=== PATIENT | female | born 1960 | race African-American/Black ===

== ENCOUNTER → 2016-08-03 | Outpatient (CLI) | payer MEDICARE ==
[~2016-08-03] MED LIST: AMIT1TAB79 PO; ATOR1TAB18 PO; CYCL1TAB29 PO; GABA800T PO; HYDR12.56 PO; IBUP800T23 PO; LEVA500T PO; LISI10TA3 PO; METF500T PO; METO50TA PO; NITR1SUB3 SL; OXYC1TAB36 PO; VENTAER INH; ZANT150T2 PO
--- NOTE | 2016-08-03 10:41 | RADRPT ---
EXAM DATE/TIME: 08/03/2016 09:39 [facility] COMPARISON: KNEE LEFT COMPLETE (4VWS), March 22, 2015, 21:19. INDICATIONS : Left knee pain. MEDICAL HISTORY : Hypertension. Chronic obstructive pulmonary disease. Myocardial infarction. Smoker. SURGICAL HISTORY : Carotid stent. Arthroscopy. ENCOUNTER: Initial ACUITY: 1 month PAIN SCORE: 8/10 LOCATION: Left lateral knee. FINDINGS: Four view examination of the left knee demonstrates no evidence of fracture or dislocation. Bony min eralization is normal. The articular surfaces are intact. The suprapatellar soft tissues have a nor mal configuration. There is no evidence of joint effusion. 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 This is unchanged compared to 2015. No new findings are seen. CONCLUSION: No acute fracture or joint dislocation. Qasim Sheffield MD on August 03, 2016 at 10:39 Board Certified Radiologist. This report was verified electronically.
== END ==
LOC: HRAD 09:24
PROVIDERS: ATTEND Internal Medicine
DX: S83.241A Other tear of medial meniscus, current injury, right knee, initial encounter (principal); X58.XXXA Exposure to other specified factors, initial encounter
CPT/HCPCS: 73564

== ENCOUNTER → 2016-11-01 | Outpatient (CLI) | payer MEDICARE ==
--- NOTE | 2016-11-02 14:21 | EKG ---
Date Performed: 11/01/2016 Time Performed: 12:43:14 PTAGE: 56 years EKG: Sinus bradycardia. Septal T wave changes are nonspecific Compared to prior tracing no signi ficant change Borderline ECG PREVIOUS TRACING : 04/10/2016 12.52 DOCTOR: Jerrod Guerrero Interpretating Date/Time 11/02/2016 14:19:46
== END ==
LOC: HCAV 12:30
PROVIDERS: ATTEND Ophthalmology
DX: Z01.810 Encounter for preprocedural cardiovascular examination (principal); R94.31 Abnormal electrocardiogram [ECG] [EKG]
CPT/HCPCS: 36415; 85025; 93005

== ENCOUNTER → 2016-11-01 | Outpatient (CLI) | payer MEDICARE ==
[2016-11-01 12:24] LABS: AUTOMATED NEUTROPHIL # 4.6 TH/MM3 (1.8-7.7); BASOPHIL # 0.1 TH/MM3 (0-0.2); BASOPHIL % 1.5 % (0.0-2.0); EOSINOPHIL # 0.2 TH/MM3 (0-0.4); EOSINOPHIL % 2.3 % (0.0-4.0); HEMATOCRIT 33.9 % (35.0-46.0); HEMO FLAGS DIFF FINAL; LYMPH % 29.1 % (9.0-44.0); LYMPHOCYTE # 2.2 TH/MM3 (1.0-4.8); MEAN CELL VOLUME 77.7 FL (80.0-100.0); MEAN CORPUSCULAR HGB CONC 30.9 % (32.0-36.0); MONO % 6.4 % (0.0-8.0); NEUT % 60.7 % (16.0-70.0); PLATELET COUNT 334 TH/MM3 (150-450); RED BLOOD COUNT 4.37 MIL/MM3 (4.00-5.30); RED CELL DISTRIBUTION WIDTH 15.9 % (11.6-17.2); WHITE BLOOD COUNT 7.5 TH/MM3 (4.0-11.0)
== END ==
LOC: CLAB 12:03
PROVIDERS: ATTEND Ophthalmology
DX: Z01.812 Encounter for preprocedural laboratory examination (principal); Z01.818 Encounter for other preprocedural examination; Z01.810 Encounter for preprocedural cardiovascular examination; R94.31 Abnormal electrocardiogram [ECG] [EKG]
CPT/HCPCS: 36415; 85025

== ENCOUNTER → 2016-12-26 | Outpatient (CLI) | payer MEDICARE ==
[2016-12-26 13:07] LABS: AUTOMATED NEUTROPHIL # 4.5 TH/MM3 (1.8-7.7); BASOPHIL # 0.1 TH/MM3 (0-0.2); EOSINOPHIL # 0.4 TH/MM3 (0-0.4); EOSINOPHIL % 4.5 % (0.0-4.0); HEMATOCRIT 35.6 % (35.0-46.0); HEMO FLAGS DIFF FINAL; LYMPH % 34.4 % (9.0-44.0); LYMPHOCYTE # 2.9 TH/MM3 (1.0-4.8); MEAN CELL VOLUME 77.7 FL (80.0-100.0); MEAN CORPUSCULAR HEMOGLOBIN 24.8 PG (27.0-34.0); MEAN CORPUSCULAR HGB CONC 31.9 % (32.0-36.0); MONO % 6.9 % (0.0-8.0); NEUT % 53.2 % (16.0-70.0); PLATELET COUNT 293 TH/MM3 (150-450); RED BLOOD COUNT 4.58 MIL/MM3 (4.00-5.30); RED CELL DISTRIBUTION WIDTH 15.4 % (11.6-17.2); WHITE BLOOD COUNT 8.5 TH/MM3 (4.0-11.0)
== END ==
LOC: CLAB 12:41
PROVIDERS: ATTEND Ophthalmology
DX: Z01.818 Encounter for other preprocedural examination (principal)
CPT/HCPCS: 36415; 85025

== ENCOUNTER 2017-01-21 09:27 | Inpatient (IN) | payer MEDICARE, MEDICAID ==
[~2017-01-21] VITALS: Ht 175.3 cm; Wt 84.9 kg
[~2017-01-21 09:27] MED LIST changes: -AMIT1TAB79 PO; -LEVA500T PO; -OXYC1TAB36 PO
--- NOTE | 2017-01-24 08:39 | MH ---
cc: Drake ROSE DATE OF ADMISSION 01/25/2017 ADMISSION DIAGNOSIS Osteoarthritic degeneration left knee now being admitted for left total knee arthroplasty. ADMISSION HISTORY AND PHYSICAL This 56-year-old female, known diabetic, is being admitted today for left total knee arthroplasty due to severe painful osteoarthritic degeneration left knee. OTHER PAST HISTORY The patient has a history of: 1. Breast cancer 2. Depression 3. Diabetes 4. Vertigo 5. Hypertension 6. Back pain 7. Lung problems 8. Neck pain 9. Anemia CURRENT MEDICATIONS Include: 1. Metformin 2. Isosorbide 3. Amitriptyline 4. Metoprolol 5. Hydrochlorothiazide 6. Atorvastatin 7. Lisinopril 8. Gabapentin 9. Hydrocodone 10. Ibuprofen 11. Ranitidine 12. Ibuprofen stopped before surgery 13. Cyclobenzaprine 14. Allopurinol 15. Albuterol 16. Ipratropium bromide PAST SURGICAL HISTORY Include: 1. Two heart stents 2. Three arthroscopies on the knee 3. Breast cancer surgery REVIEW OF SYSTEMS Noncontributory FAMILY HISTORY Noncontributory SOCIAL HISTORY She does not smoke or drink. ALLERGIES SHE HAS ALLERGY TO PENICILLIN. She is no longer taking any blood thinners. PHYSICAL EXAMINATION We find a 56-year female well-developed, well-nourished oriented x3 complaining of pain in her left knee. VITAL SIGNS: Blood pressure 122/80, pulse 74 and regular, respirations 18, temperature 98.2, pulse oximetry 98% on room air. HEENT: Eyes PERRL, EOMI. Ears, nose, mouth clear. NECK: Supple. LUNGS: Clear. HEART: Regular rate. ABDOMEN: Soft. Positive bowel sounds, nontender. EXTREMITIES: Reveals her left knee be tender with crepitance throughout range of motion, neurovascularly intact to her toes. IMPRESSION AT THIS TIME Severe painful osteoarthritic degeneration left knee. PLAN Admission for left total knee arthroplasty today. Mary. MD LUDWIN Piper/YENNIFER /12:27 PM /8:34 AM
[2017-01-24] MEDS ORDERED: AMIT25TA9 PO (09:45)
[2017-01-24] MEDS ORDERED: ASPI81TA19 PO (09:46)
[2017-01-25] MEDS ORDERED: CLINDAMYCIN 900 MG/NS 100 ML IV SCH ×2 (06:00)
[2017-01-25] MEDS ORDERED: SODIUM CHLORIDE 0.9% INJ 100 ML ONE (06:07)
[2017-01-25] MEDS ORDERED: TRANEXAMIC ACID INJ 850 MG in SODIUM CHLORIDE 0.9% INJ 100 ML IV SCH ×4 (06:15)
[2017-01-25] MEDS ORDERED: CHLORHEXIDINE GLUCONATE 2 % 1 PACK (2 CLOTHS) TOPICAL PRN (06:15)
[2017-01-25] MEDS ORDERED: METOPROLOL TARTRATE 25 MG TAB PO PRN (06:15)
[2017-01-25] MEDS ORDERED: LACTATED RINGER'S 1000 ML IV PRN (06:15)
[2017-01-25] MEDS ORDERED: EXPAREL PERI-ARTICULAR INJECTION (TOTAL VOL. 120 ML) P-ARTICULR SCH ×2 (06:15)
[2017-01-25] MEDS ORDERED: CHLORHEXIDINE GLUCONATE 4% SOLN 120 ML BTL TOPICAL SCH (06:15)
[2017-01-25] MEDS ORDERED: POVIDONE IODINE 5% (ANTISEPSIS KIT) 4 APPLICATIONS EACH NARE PRN (06:15)
[2017-01-25] MEDS ORDERED: SODIUM CHLORID 0.9% 500 ML IV PRN (06:15)
[2017-01-25] MEDS ORDERED: INSULIN HUMAN REGULAR 1,000 UNITS/10 ML VIAL SQ PRN (06:15)
[2017-01-25 06:18] VITALS: BP 121/75; PULSE 70; RESP 20; TEMP 98.9; O2SAT 97
[2017-01-25] MEDS ORDERED: VANCOMYCIN HCL 1000 MG VIAL ONE (07:10)
[2017-01-25] MEDS ORDERED: ACETAMINOPHEN 1000 MG/100 ML VIAL IV ONE (07:28)
[2017-01-25] MEDS ORDERED: FAMOTIDINE 20 MG/2 ML VIAL ONE (07:29)
[2017-01-25] MEDS ORDERED: MIDAZOLAM HCL 2 MG/2 ML VIAL ONE (07:29)
[2017-01-25] MEDS ORDERED: HYDROmorphone HCL PF 2 MG/ML VIAL ONE (07:30)
[2017-01-25] MEDS ORDERED: GENTAMICIN SULFATE 80 MG/2 ML VIAL IRRIGATION ONE (08:28)
[2017-01-25] MEDS ORDERED: ALBUTEROL SULFATE 90 MCG/ACT HFA 8 GM INHALER INH PRN (10:00)
[2017-01-25] MEDS ORDERED: IBUPROFEN 800 MG TAB PO PRN (10:15)
[2017-01-25] MEDS ORDERED: Post-op Orders (for Pharmacy) MISC XX ONE (10:15)
[2017-01-25] MEDS ORDERED: ACETAMINOPHEN/HYDROcodone 325 MG/7.5 MG TAB PO PRN (10:15)
[2017-01-25] MEDS ORDERED: TEMAZEPAM 15 MG CAP PO PRN (10:15)
[2017-01-25] MEDS ORDERED: ACETAMINOPHEN 325 MG TAB PO PRN (10:15)
[2017-01-25] MEDS ORDERED: NITROGLYCERIN 0.4 MG SL 25 TABS/BTL SL PRN (10:15)
[2017-01-25] MEDS ORDERED: SODIUM CHLORIDE 0.9% FLUSH 5 ML FLUSH IVF PRN (10:15)
[2017-01-25] MEDS ORDERED: diphenhydrAMINE HCL 50 MG/ML VIAL IV PRN (10:15)
[2017-01-25] MEDS ORDERED: TRANEXAMIC ACID INJ 0 MG in SODIUM CHLORIDE 0.9% INJ 100 ML IV SCH (10:15)
[2017-01-25] MEDS ORDERED: NALOXONE HCL 0.4 MG/ML AMP IV PRN (10:15)
[2017-01-25] MEDS: LACTATED RINGER'S 1000 ML INJ 1,000 ML IV SCH ×2 (10:42→22:33)
[2017-01-25] MEDS: MORPHINE SULFATE 30 MG/30 ML PCA IV SCH ×2 (11:08→19:03)
[2017-01-25] MEDS ORDERED: DEXTROSE 50% IN WATER 50 ML VIAL(D50) IV PRN (11:15)
--- NOTE | 2017-01-25 11:30 | RADRPT ---
EXAM DATE/TIME: 01/25/2017 10:16 [facility] COMPARISON: No previous studies available for comparison. INDICATIONS : Post-op total left knee arthroplasty. MEDICAL HISTORY : Hypertension. Chronic obstructive pulmonary disease. Myocardial infarction. Smoker. SURGICAL HISTORY : Carotid stent. Arthroscopy. ENCOUNTER: Initial ACUITY: 1 day PAIN SCORE: Non-responsive. LOCATION: Left knee FINDINGS: AP and lateral views of the left knee were obtained and demonstrate that the patient is status post a rthroplasty. The femoral and tibial components are intact and in normal alignment. There are postoper ative changes involving the patella. There is anterior soft tissue swelling and gas. CONCLUSION: Expected postoperative changes status post arthroplasty. Sawyer Hernandez MD on January 25, 2017 at 11:27 Board Certified Radiologist. This report was verified electronically.
[2017-01-25] MEDS ORDERED: ONDANSETRON HCL 4 MG/2 ML VIAL IV PUSH ONE (12:00)
[2017-01-25] MEDS ORDERED: PHENYLEPH/NS 1000 MCG/10 ML SYR IV ONE (12:00)
[2017-01-25] MEDS ORDERED: PROPOFOL 200 MG/20 ML AMP IV ONE (12:00)
[2017-01-25] MEDS ORDERED: ePHEDrine/NS 25 MG/5 ML SYR IV ONE (12:00)
[2017-01-25] MEDS ORDERED: LACTATED RINGER'S 1000 ML INJ 1,000 ML IV ONE (12:00)
[2017-01-25] MEDS ORDERED: DO NOT ADM ANY ANTICOAGULANT DRUGS PRN (12:30)
--- NOTE | 2017-01-25 13:01 | PD.CONS ---
HPI Service [facility] Consult Requested By Orthopedic services Reason for Consult Medical management Primary Care Physician Bryan Pride DO Diagnoses: History of Present Illness Written by Ashly William PA-C acting as scribe for Dr. Patel on 01/25/17 at 12:38. This is a 57-year-old female with past medical history significant for osteoarthritis with chronic left knee pain affecting her activities of daily living and who failed attempts at outpatient therapy. She underwent a left total knee replacement performed by Dr. Schaeffer who has requested patient be seen in consultation for medical management of HTN, DM, CAD and other chronic medical conditions. Patient is seen and examined. Patient is hemodynamically stable. She is complaining of some left knee pain at this time. She is requesting to eat. She denies any nausea or vomiting. She denies any chest pain or shortness of breath. She admits to continued tobacco use of 2-3 cigs per day but states she hasn't smoked in the last two weeks. All other systems reviewed and are negative. Review of Systems Except as stated in HPI: all other systems reviewed are Neg Past Family Social History Allergies: Coded Allergies: penicillin G (Unverified Allergy, Severe, ANAPHALAXIS, 01/25/17) Past Medical History History of pneumonia 04/25 Breast cancer 2007 Hypertension Diabetes COPD Coronary artery disease status post previous [place] Anemia GERD Degenerative disc disease lumbar spine Vertigo Depression Past Surgical History Cardiac stents Knee arthroscopies Back surgery 2 secondary to spinal stenosis Left breast lumpectomy Reported Medications Metoprolol 50mg BID Hydrochlorothiazide 12.5mg daily Lisinopril 10mg daily ASA 81mg daily Atorvastatin 80mg daily Gabapentin 800mg BID Ranitidine 150mg BID Metformin 500mg BIDPC Amitriptyline Cyclobenzaprine 10mg qhs Albuterol Active Ordered Medications Current Medications Medications (Trade) Dose Ordered Sig/Taty Route Start Time Stop Time Status Last Admin Chlorhexidine Gluconate 1 applic 1 applic ONCE TOPICAL 01/25/17 06:15 01/28/17 06:14 01/25/17 06:15 Tranexamic Acid 850 mg/Sodium Chloride 108.5 ml @ 200 mls/hr ONCE IV 01/25/17 06:15 01/25/17 16:00 01/25/17 08:05 Tranexamic Acid 850 mg/Sodium Chloride 108.5 ml @ 200 mls/hr ONCE IV 01/25/17 06:15 01/25/17 16:00 01/25/17 11:07 (Exparel Pf 1.3% Inj/NS Inj) 120 ml @ 240 mls/hr ONCE P-ARTICULR 01/25/17 06:15 01/25/17 16:00 (Proair Hfa Inh) 2 puff Q4H PRN INH 01/25/17 10:00 (Elavil) 25 mg HS PO 01/25/17 21:00 (Ecotrin Ec) 81 mg DAILY PO 01/26/17 09:00 (Lipitor) 80 mg DAILY PO 01/26/17 09:00 (Flexeril) 10 mg HS PO 01/25/17 21:00 (Neurontin) 800 mg BID PO 01/25/17 21:00 (Microzide) 12.5 mg DAILY PO 01/26/17 09:00 (Motrin) 800 mg TID PRN PO 01/25/17 10:15 (Prinivil) 10 mg DAILY PO 01/26/17 09:00 (Glucophage) 500 mg BIDPC PO 01/25/17 18:00 (Lopressor) 50 mg BID PO 01/25/17 21:00 (Nitrostat Sl) 0.4 mg ONCE PRN SL 01/25/17 10:15 01/26/17 10:14 Famotidine 20 mg 20 mg BID PO 01/25/17 21:00 (Lr 1000 ml Inj) 1,000 ml @ 80 mls/hr [id number] IV 01/25/17 10:03 01/25/17 10:42 (NS Flush) 2 ml UNSCH PRN IVF 01/25/17 10:15 IV Flush 2 ml 2 ml BID IVF 01/25/17 21:00 (Cleocin Inj/NS Inj) 106 ml @ 212 mls/hr Q8H IV 01/25/17 15:00 01/26/17 07:29 ([place] 7.5-325 Mg) 1 tab Q4H PRN PO 01/25/17 10:15 ([place] 7.5-325 Mg) 2 tab Q4H PRN PO 01/25/17 10:15 (Tylenol) 650 mg Q6H PRN PO 01/25/17 10:15 (Theragran M Tab) 1 tab BID PO 01/26/17 21:00 03/27/17 20:59 (Zofran Inj) 4 mg Q6H PRN IVP 01/25/17 10:15 (Colace) 100 mg BID PO 01/26/17 21:00 (Restoril) 15 mg HS PRN PO 01/25/17 10:15 (Narcan Inj) 0.4 mg UNSCH PRN IV 01/25/17 10:15 (Benadryl Inj) 25 mg Q6H PRN IV 01/25/17 10:15 (Morphine 1 Mg/ ml COPY CHIEF) 30 mg UNSCH IV 01/25/17 10:15 01/25/17 11:08 COPY CHIEF Dosage Infused (Pha) 1 Q8HR .XX 01/25/17 14:00 (Eliquis) 2.5 mg BID PO 01/25/17 21:00 (D50w (Vial) Inj) 50 ml UNSCH PRN IV 01/25/17 11:15 Miscellaneous Information ALL NURSING DEPARTME... UNSCH PRN .XX 01/25/17 12:30 01/26/17 12:29 Family History Mother, age 74, pneumonia Father, age 76, brain tumor Social History Patient presents history of tobacco use of 2-3 cigarettes a day. States her last cigarette was 2 weeks. She reports rare alcohol consumption of once per year. Denies any illicit drug use. Physical Exam Vital Signs Vital Signs Date Time Temp Pulse Resp B/P Pulse Ox O2 Delivery O2 Flow Rate FiO2 01/25/17 11:15 73 16 120/67 100 Nasal Cannula 2 01/25/17 11:08 16 01/25/17 11:00 73 16 128/73 100 Nasal Cannula 2 01/25/17 10:45 75 16 124/65 100 Nasal Cannula 2 01/25/17 10:42 98.0 76 16 131/73 100 Nasal Cannula 2 01/25/17 10:30 74 16 129/80 100 Nasal Cannula 2 01/25/17 10:26 98.0 76 16 131/73 100 Nasal Cannula 2 01/25/17 06:18 98.9 70 20 121/75 97 Physical Exam GENERAL: This is a well-nourished, well-developed patient, in no apparent distress. Somewhat sedated in PACU. SKIN: No rashes, ecchymoses or lesions. Cool and dry. HEAD: Atraumatic. Normocephalic. No temporal or scalp tenderness. EYES: Pupils equal round and reactive. Extraocular motions intact. No scleral icterus. No injection or drainage. ENT: Nose without bleeding or purulent drainage. Throat without erythema, tonsillar hypertrophy or exudate. Uvula midline. Airway patent. NECK: Trachea midline. No lymphadenopathy. Supple, nontender, no meningeal signs. CARDIOVASCULAR: Regular rate and rhythm without murmurs, gallops, or rubs. RESPIRATORY: Clear to auscultation. Breath sounds equal bilaterally. No wheezes , rales, or rhonchi. GASTROINTESTINAL: Abdomen soft, non-tender, nondistended. No hepato-splenomegaly , or palpable masses. No guarding. MUSCULOSKELETAL: Status post left total knee replacement. Left leg in postoperative dressing that is clean, dry and intact. LLE in CPM. NEUROLOGICAL: Awake and alert. Able to move extremities. Normal speech. Laboratory Laboratory Tests Test 01/25/17 06:18 Blood Type O POSITIVE Antibody Screen NEGATIVE Imaging Last Impressions Knee X-Ray 01/25/17 1003 Signed Impressions: Service Date/Time: Wednesday, January 25, 2017 10:16 - CONCLUSION: Expected postoperative changes status post arthroplasty. Sawyer Hernandez MD Assessment and Plan Assessment and Plan 57-year-old female with past medical history significant for osteoarthritis with chronic left knee pain affecting her activities of daily living and who failed attempts at outpatient therapy. She underwent a left total knee replacement performed by Dr. Schaeffer who has requested patient be seen in consultation for medical management of HTN, DM, CAD and other chronic medical conditions. Osteoarthritis of the left knee failed attempts at outpatient therapy status post left total knee replacement Pain management with COPY CHIEF Morphine and [place] 7.5/325mg DVT prophylaxis with Eliquis 2.5 mg twice a day PT eval/tx Coronary artery disease status post previous [place] and cardiac stent implant Patient is asymptomatic and has no complaints of chest pain at this time Continue aspirin 81 mg daily Nitroglycerin when necessary chest pain Monitor Hypertension, stable Continue patient on home dose of lisinopril, hydrochlorothiazide and metoprolol Monitor BP Diabetes mellitus Continue patient on home dose of metformin 500 mg twice a day Accu-Chek Insulin sliding scale obtain hgbA1c Diabetic diet COPD, not in acute exacerbation Albuterol inhaler when necessary Monitor respiratory status Neuropathy Continue patient on home dose of gabapentin and amitriptyline Anemia, microcytic hypochromic mild Appears stable Continue to monitor - am labs ordered Ongoing tobaccoism Encourage cessation/counseling Vitamin D deficiency Less vitamin d level of the system is 11.2 12/12/12 will obtain new Vitamin D level H/O breast cancer 2006, stable GERD Pepcid 20mg BID DVT prophylaxis Eliquis 2.5 mg twice a day This note was transcribed by scribe [Ashly William]. I, Dr. Edgar Patel personally performed the history, physical exam, and medical decision making; and confirmed the accuracy of the information in the transcribed note. Authenticated by Dr. Edgar Patel on 01/25/17 at 14:32. Discussed Condition With patient Ashly William Jan 25, 2017 13:01 Edgar Patel MD Jan 25, 2017 14:32
[2017-01-25 13:30] VITALS: BP 111/72; PULSE 75; RESP 16; TEMP 96.5; O2SAT 95
[2017-01-25] MEDS: PCA - TOTAL MG MORPHINE DELIVERED PER SHIFT SCH ×2 (14:00→21:17)
[2017-01-25] MEDS: CLINDAMYCIN INJ 900 MG in SODIUM CHLORIDE 0.9% INJ 100 ML IV SCH ×2 (15:13→23:14)
[2017-01-25 16:00] VITALS: BP 123/88; PULSE 84; RESP 17; TEMP 96.1; O2SAT 99
[2017-01-25] MEDS: metFORMIN HCL 500 MG TAB PO SCH (18:32)
[2017-01-25 20:00] VITALS: BP 140/78; PULSE 86; RESP 17; TEMP 97.8; O2SAT 97
[2017-01-25] MEDS: SODIUM CHLORIDE 0.9% FLUSH 5 ML FLUSH IVF SCH (21:00)
[2017-01-25] MEDS: AMITRIPTYLINE HCL 25 MG TAB PO SCH (21:15)
[2017-01-25] MEDS: METOPROLOL TARTRATE 50 MG TAB PO SCH (21:15)
[2017-01-25] MEDS: FAMOTIDINE 20 MG TAB PO SCH (21:15)
[2017-01-25] MEDS: GABAPENTIN 400 MG CAP PO SCH (21:15)
[2017-01-25] MEDS: APIXABAN 2.5 MG TABLET PO SCH (21:16)
[2017-01-25] MEDS: ACETAMINOPHEN/HYDROcodone 325 MG/7.5 MG TAB PO PRN (21:16)
[2017-01-25] MEDS: CYCLOBENZAPRINE HCL 10 MG TAB PO SCH (21:16)
--- NOTE | 2017-01-25 23:01 | MP ---
cc: Drake ROSE DATE OF SURGERY 01/25/17 PREOPERATIVE DIAGNOSIS Osteoarthritic degeneration left knee. POSTOPERATIVE DIAGNOSIS Osteoarthritic degeneration left knee. PROCEDURE Left total knee arthroplasty using consensus knee system, sizes 4 femur, 2 tibia, 10 insert and size 2 x 7.5 mm patella with two batches of DePuy cement SURGEON Dr. Aman Rose ANESTHESIA General intubation and block EMBEDDED SOFTWARE TEST ENGINEER CLARENCE Bhagat PROCEDURE IN DETAIL The patient was brought to the operating room and placed on the operating room table in the supine position. After successful induction of general anesthesia, the patient's left leg was prepped and draped in the usual manner. The knee was then placed in a knee leger and tightened. Arthroscopic examination was then performed by making a stab wound over the proximal superior and medial aspect of the patellofemoral joint for insertion of the inflow cannula and fluid, followed by stab wounds over the medial and lateral joint margins respectively for insertion of the arthroscope, shaver and probe. Arthroscopic examination was then performed which revealed the aforementioned components. Tourniquet deflated, total tourniquet time 55 minutes at 300 mmHg pressure. No drain utilized. 120 mL of Exparel and saline injected around the knee joint for extra pain control. Deep fascia approximated with running #2 quill, subcutaneous tissue approximated using interrupted running 2-0 and 4-0 Monocryl suture. Steri-Strips, sterile dressing, knee immobilizer. No drain utilized. Estimated blood loss 100 mL. Sponge and suture count correct. CLARENCE Carter, was present during the entire procedure to include patient positioning and the procedure. The medical necessity of a nurse practitioner and pier master assistant was indicated in this case due to the surgical complexity of the case itself. During the surgical case, the distance learning technician was working the back table while my offset assistant press operator CLARENCE was directly assisting me. The patient tolerated procedure well and left the operating room in satisfactory condition. MD LUDWIN King/ /10:07 AM /10:42 PM
[2017-01-26] VITALS: BP 142/77; PULSE 91; RESP 16; TEMP 98; O2SAT 98
[2017-01-26] MEDS: ACETAMINOPHEN/HYDROcodone 325 MG/7.5 MG TAB PO PRN ×4 (01:36→21:15)
[2017-01-26] MEDS ORDERED: SENNOSIDES 8.6 MG TAB PO PRN (01:45)
[2017-01-26] MEDS ORDERED: BISACODYL 10 MG SUPP RECTAL PRN (01:45)
[2017-01-26] MEDS ORDERED: LACTULOSE SYRUP 20 GM/30 ML CUP PO PRN (02:00)
[2017-01-26 04:00] VITALS: BP_SYST 136; BP_SYST 176; BP_DIAS 77; BP_DIAS 84; PULSE 83; RESP 16; TEMP 100.2; O2SAT 97; O2SAT 98
[2017-01-26] MEDS: PCA - TOTAL MG MORPHINE DELIVERED PER SHIFT SCH (05:36)
[2017-01-26] MEDS: CLINDAMYCIN INJ 900 MG in SODIUM CHLORIDE 0.9% INJ 100 ML IV SCH (06:10)
[2017-01-26 08:00] VITALS: BP 104/63; PULSE 86; RESP 17; TEMP 99.7; O2SAT 94
[2017-01-26] MEDS ORDERED: DEXTROSE 50% IN WATER 50 ML VIAL(D50) IV PRN (08:15)
[2017-01-26] MEDS ORDERED: GLUCAGON 1 MG/ML VIAL OTHER PRN (08:15)
[2017-01-26] MEDS: ONDANSETRON HCL 4 MG/2 ML VIAL IVP PRN (08:30)
[2017-01-26] MEDS: HYDROCHLOROTHIAZIDE 12.5 MG CAP PO SCH (09:00)
[2017-01-26] MEDS: METOPROLOL TARTRATE 50 MG TAB PO SCH ×2 (09:00→21:13)
[2017-01-26] MEDS: LISINOPRIL 10 MG TAB PO SCH (09:00)
[2017-01-26] MEDS: SODIUM CHLORIDE 0.9% FLUSH 5 ML FLUSH IVF SCH ×2 (09:00→21:15)
--- NOTE | 2017-01-26 09:03 | HHI.FF ---
Face to Face Verification Diagnosis: (1) Status post total left knee replacement Physical Therapy Gait training Knee: Total knee, Protocol: Left, Full weight bearing Canvas Knee Splint: When in bed & 2 pillows btw thighs Nursing RN: 3 days/week x 2 weeks Nursing: Dressing changes Dressing Changes: Daily dressing change, 4x4s, Gauze, Paper tape I have seen patient Glenda Rea on 01/26/17. My clinical findings support the need for the requested home health care services because: Limited ability to care for self High risk of falls I certify that my clinical findings support that this patient is homebound because: Unsteady gait/balance Drake Schaeffer MD Jan 26, 2017 09:03
[2017-01-26] MEDS ORDERED: CPMMACHINE (09:05)
[2017-01-26] MEDS ORDERED: ADJUSTABLE COMM1 MIS (09:05)
[2017-01-26] MEDS ORDERED: WALKER WHEELS/F1 MIS (09:05)
--- NOTE | 2017-01-26 09:07 | PD.ORT.PN ---
Subjective Subjective Remarks pt having some pain in knee. Nausea. Objective Vitals Vital Signs Date Time Temp Pulse Resp B/P Pulse Ox O2 Delivery O2 Flow Rate FiO2 01/26/17 04:00 100.2 83 16 136/77 97 01/26/17 00:00 98.0 91 16 142/77 98 01/25/17 20:00 97.8 86 17 140/78 97 01/25/17 19:06 Room Air 01/25/17 19:03 16 01/25/17 16:00 96.1 84 17 123/88 99 01/25/17 14:00 15 01/25/17 13:30 96.5 75 16 111/72 95 01/25/17 13:00 97.9 72 16 128/77 100 Room Air 01/25/17 12:00 72 16 133/75 100 Nasal Cannula 2 01/25/17 11:15 73 16 120/67 100 Nasal Cannula 2 01/25/17 11:08 16 01/25/17 11:00 73 16 128/73 100 Nasal Cannula 2 01/25/17 10:45 75 16 124/65 100 Nasal Cannula 2 01/25/17 10:42 98.0 76 16 131/73 100 Nasal Cannula 2 01/25/17 10:30 74 16 129/80 100 Nasal Cannula 2 01/25/17 10:26 98.0 76 16 131/73 100 Nasal Cannula 2 I/O 01/25/17 01/25/17 01/25/17 01/26/17 01/26/17 01/26/17 07:00 15:00 23:00 07:00 15:00 23:00 Intake Total 1910 ml 1437 ml 1049 ml Output Total 100 ml Balance 1810 ml 1437 ml 1049 ml Intake Oral 360 ml 720 ml 720 ml IV Total 350 ml 717 ml 329 ml Other 1200 ml Output Estimated Blood Loss 100 ml # Voids 2 2 Imaging Last 24 hours Impressions Knee X-Ray 01/25/17 1003 Signed Impressions: Service Date/Time: Wednesday, January 25, 2017 10:16 - CONCLUSION: Expected postoperative changes status post arthroplasty. Sawyer Hernandez MD Objective Remarks Dressing dry and intact. NV intact to toes. No calf tenderness. Assessment & Plan Ortho Post Op Day #: 1 Problem List: Assessment and Plan OOB, PT, daily wound care. Home with [facility] and PT on Saturday. Drake Schaeffer MD Jan 26, 2017 09:07
--- NOTE | 2017-01-26 09:38 | HHI.PR ---
Subjective Remarks Follow up on patient with OA s/p L TKR. Patient seen and examined today. Patient complaining of some nausea. No vomiting. No abdominal pain. Reports low grade fevers last night. Denies any chest pain or shortness of breath. Left knee pain fairly well controlled at present. Objective Vitals Vital Signs Date Time Temp Pulse Resp B/P Pulse Ox O2 Delivery O2 Flow Rate FiO2 01/26/17 08:00 99.7 86 17 104/63 94 01/26/17 04:00 100.2 83 16 136/77 97 01/26/17 00:00 98.0 91 16 142/77 98 01/25/17 20:00 97.8 86 17 140/78 97 01/25/17 19:06 Room Air 01/25/17 19:03 16 01/25/17 16:00 96.1 84 17 123/88 99 01/25/17 14:00 15 01/25/17 13:30 96.5 75 16 111/72 95 01/25/17 13:00 97.9 72 16 128/77 100 Room Air 01/25/17 12:00 72 16 133/75 100 Nasal Cannula 2 01/25/17 11:15 73 16 120/67 100 Nasal Cannula 2 01/25/17 11:08 16 01/25/17 11:00 73 16 128/73 100 Nasal Cannula 2 01/25/17 10:45 75 16 124/65 100 Nasal Cannula 2 01/25/17 10:42 98.0 76 16 131/73 100 Nasal Cannula 2 01/25/17 10:30 74 16 129/80 100 Nasal Cannula 2 01/25/17 10:26 98.0 76 16 131/73 100 Nasal Cannula 2 I/O 01/25/17 01/25/17 01/25/17 01/26/17 01/26/17 01/26/17 07:00 15:00 23:00 07:00 15:00 23:00 Intake Total 1910 ml 1437 ml 1049 ml Output Total 100 ml Balance 1810 ml 1437 ml 1049 ml Intake Oral 360 ml 720 ml 720 ml IV Total 350 ml 717 ml 329 ml Other 1200 ml Output Estimated Blood Loss 100 ml # Voids 2 2 Imaging Last Impressions Knee X-Ray 01/25/17 1003 Signed Impressions: Service Date/Time: Wednesday, January 25, 2017 10:16 - CONCLUSION: Expected postoperative changes status post arthroplasty. Sawyer Hernandez MD Objective Remarks GENERAL: This is a well-nourished, well-developed patient, in no apparent distress. Awake and alert. Sitting up in hospital bed. SKIN: No rashes, ecchymoses or lesions. Cool and dry. HEAD: Atraumatic. Normocephalic. EYES: Extraocular motions intact. No scleral icterus. No injection or drainage. ENT: Nose without bleeding or purulent drainage. Airway patent. NECK: Trachea midline. Supple. CARDIOVASCULAR: Regular rate and rhythm without murmurs, gallops, or rubs. RESPIRATORY: Clear to auscultation. Breath sounds equal bilaterally. No wheezes , rales, or rhonchi. GASTROINTESTINAL: Abdomen soft, non-tender, nondistended. No hepato-splenomegaly , or palpable masses. No guarding. MUSCULOSKELETAL: Status post left total knee replacement. Left leg in postoperative dressing that is clean, dry and intact. NEUROLOGICAL: Awake and alert. Able to move extremities. Normal speech. Medications and IVs Current Medications Medications (Trade) Dose Ordered Sig/Taty Route Start Time Stop Time Status Last Admin (Hibiclens 4% Top Soln) 1 applic ONCE TOPICAL 01/25/17 06:15 01/28/17 06:14 01/25/17 06:15 (Proair Hfa Inh) 2 puff Q4H PRN INH 01/25/17 10:00 (Elavil) 25 mg HS PO 01/25/17 21:00 01/25/17 21:15 (Ecotrin Ec) 81 mg DAILY PO 01/26/17 09:00 (Lipitor) 80 mg DAILY PO 01/26/17 09:00 (Flexeril) 10 mg HS PO 01/25/17 21:00 01/25/17 21:16 (Neurontin) 800 mg BID PO 01/25/17 21:00 01/25/17 21:15 (Microzide) 12.5 mg DAILY PO 01/26/17 09:00 (Motrin) 800 mg TID PRN PO 01/25/17 10:15 (Prinivil) 10 mg DAILY PO 01/26/17 09:00 (Glucophage) 500 mg BIDPC PO 01/25/17 18:00 01/25/17 18:32 (Lopressor) 50 mg BID PO 01/25/17 21:00 01/25/17 21:15 (Nitrostat Sl) 0.4 mg ONCE PRN SL 01/25/17 10:15 01/26/17 10:14 Famotidine 20 mg 20 mg BID PO 01/25/17 21:00 01/25/17 21:15 (Lr 1000 ml Inj) 1,000 ml @ 80 mls/hr [id number] IV 01/25/17 10:03 01/25/17 10:42 (NS Flush) 2 ml UNSCH PRN IVF 01/25/17 10:15 (NS Flush) 2 ml BID IVF 01/25/17 21:00 ([place] 7.5-325 Mg) 1 tab Q4H PRN PO 01/25/17 10:15 ([place] 7.5-325 Mg) 2 tab Q4H PRN PO 01/25/17 10:15 01/26/17 06:11 (Tylenol) 650 mg Q6H PRN PO 01/25/17 10:15 (Theragran M Tab) 1 tab BID PO 01/26/17 21:00 03/27/17 20:59 (Zofran Inj) 4 mg Q6H PRN IVP 01/25/17 10:15 (Colace) 100 mg BID PO 01/26/17 21:00 (Restoril) 15 mg HS PRN PO 01/25/17 10:15 (Eliquis) 2.5 mg BID PO 01/25/17 21:00 01/25/17 21:16 Miscellaneous Information ALL NURSING DEPARTME... UNSCH PRN .XX 01/25/17 12:30 01/26/17 12:29 (Milk Of Magnesia Liq) 30 ml BID PO 01/26/17 09:00 (Senokot) 17.2 mg Q12H PRN PO 01/26/17 01:45 (Dulcolax Supp) 10 mg Q24H PRN RECTAL 01/26/17 01:45 (Lactulose Liq) 30 ml Q24H PRN PO 01/26/17 02:00 (D50w (Vial) Inj) 50 ml UNSCH PRN IV 01/26/17 08:15 (Glucagon Inj) 1 mg UNSCH PRN OTHER 01/26/17 08:15 A/P Assessment and Plan 57-year-old female with past medical history significant for osteoarthritis with chronic left knee pain affecting her activities of daily living and who failed attempts at outpatient therapy. She underwent a left total knee replacement performed by Dr. Schaeffer who has requested patient be seen in consultation for medical management of HTN, DM, CAD and other chronic medical conditions. 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 Likely reactive/stress. Monitor. Per Ortho, plan for discharge to home on Saturday with [facility] Zofran prn nausea/vomiting Coronary artery disease status post previous [place] and cardiac stent implant Patient is asymptomatic and has no complaints of chest pain at this time Continue aspirin 81 mg daily Nitroglycerin when necessary chest pain Monitor Hypertension, stable Continue patient on home dose of lisinopril, hydrochlorothiazide and metoprolol Monitor BP Diabetes mellitus Continue patient on home dose of metformin 500 mg twice a day Accu-Chek Insulin sliding scale obtain hgbA1c - patient does not check her blood sugars at home Diabetic diet COPD, not in acute exacerbation Albuterol inhaler when necessary Monitor respiratory status Neuropathy Continue patient on home dose of gabapentin and amitriptyline Anemia, microcytic hypochromic mild Appears stable Continue to monitor - am labs pending Ongoing tobaccoism Encourage cessation/counseling Vitamin D deficiency Less vitamin d level of the system is 11.2 12/12/12 Vitamin D level pending H/O breast cancer 2006, stable GERD Pepcid 20mg BID DVT prophylaxis Eliquis 2.5 mg twice a day Discussed with patient, and Ashly Mireles Jan 26, 2017 09:38
[2017-01-26 09:48] LABS: HEMATOCRIT 29.2 % (35.0-46.0); REVIEW FLAG FINAL
[2017-01-26] MEDS: FAMOTIDINE 20 MG TAB PO SCH ×2 (10:12→21:12)
[2017-01-26] MEDS: MAGNESIUM HYDROXIDE SUSP 30 ML CUP PO SCH ×2 (10:12→21:12)
[2017-01-26] MEDS: APIXABAN 2.5 MG TABLET PO SCH ×2 (10:12→21:13)
[2017-01-26] MEDS: GABAPENTIN 400 MG CAP PO SCH ×2 (10:12→21:13)
[2017-01-26] MEDS: ASPIRIN EC 81 MG TABEC PO SCH (10:12)
[2017-01-26] MEDS: metFORMIN HCL 500 MG TAB PO SCH ×2 (10:13→18:25)
[2017-01-26] MEDS: ATORVASTATIN 80 MG TAB PO SCH (10:13)
[2017-01-26 10:14] LABS: ANION GAP 7 MEQ/L (5-15); AST (GOT) 13 U/L (15-37); BICARBONATE 23.7 MEQ/L (21.0-32.0); BLOOD UREA NITROGEN 10 MG/DL (7-18); CHLORIDE 105 MEQ/L (98-107); GLOMERULAR FILTRATION RATE 84 ML/MIN (>89); POTASSIUM 3.8 MEQ/L (3.5-5.1); SODIUM (NA) 136 MEQ/L (136-145)
[2017-01-26 10:15] LABS: ALT (GPT) 26 U/L (10-53)
[2017-01-26 10:17] LABS: ALKALINE PHOSPHATASE 79 U/L (45-117); TOTAL BILIRUBIN ADULT 0.3 MG/DL (0.2-1.0)
[2017-01-26] MEDS: INSULIN ASPART SUPPLEMENTAL SCALE SQ SCH ×3 (11:00→21:00)
[2017-01-26] MEDS: LACTATED RINGER'S 1000 ML INJ 1,000 ML IV SCH (11:03)
[2017-01-26 12:18] VITALS: BP 107/62; PULSE 81; RESP 17; TEMP 98.8; O2SAT 98
[2017-01-26 16:00] VITALS: BP 165/86; PULSE 96; RESP 18; TEMP 100.4; O2SAT 99
[2017-01-26 20:39] LABS: AUTOMATED NEUTROPHIL # 7.8 TH/MM3 (1.8-7.7); BASOPHIL # 0.1 TH/MM3 (0-0.2); BASOPHIL % 0.8 % (0.0-2.0); EOSINOPHIL # 0.1 TH/MM3 (0-0.4); HEMO FLAGS DIFF FINAL; LYMPH % 22.1 % (9.0-44.0); LYMPHOCYTE # 2.6 TH/MM3 (1.0-4.8); MEAN CELL VOLUME 79.8 FL (80.0-100.0); MEAN CORPUSCULAR HEMOGLOBIN 24.1 PG (27.0-34.0); MEAN CORPUSCULAR HGB CONC 30.2 % (32.0-36.0); MONO % 10.1 % (0.0-8.0); PLATELET COUNT 256 TH/MM3 (150-450); RED BLOOD COUNT 3.76 MIL/MM3 (4.00-5.30); RED CELL DISTRIBUTION WIDTH 16.6 % (11.6-17.2); WHITE BLOOD COUNT 11.9 TH/MM3 (4.0-11.0)
[2017-01-26 20:41] VITALS: BP 147/82; PULSE 106; RESP 20; TEMP 100.7; O2SAT 95
[2017-01-26] MEDS: DOCUSATE SODIUM 100 MG CAP PO SCH (21:13)
[2017-01-26] MEDS: MULTIVITAMINS/MINERALS THERAPEUTIC TAB PO SCH (21:13)
[2017-01-26] MEDS: CYCLOBENZAPRINE HCL 10 MG TAB PO SCH (21:13)
[2017-01-26] MEDS: AMITRIPTYLINE HCL 25 MG TAB PO SCH (21:13)
[2017-01-27 00:24] VITALS: BP 147/80; PULSE 94; RESP 20; TEMP 99.8; O2SAT 95
[2017-01-27] MEDS: ONDANSETRON HCL 4 MG/2 ML VIAL IVP PRN (00:39)
[2017-01-27 04:20] LABS: REVIEW FLAG FINAL
[2017-01-27] MEDS: INSULIN ASPART SUPPLEMENTAL SCALE SQ SCH ×4 (07:00→21:00)
[2017-01-27] MEDS: KETOROLAC TROMETHAMINE 30 MG/ML (IVP) VIAL IV PUSH ONE ×2 (07:45→07:59)
[2017-01-27 07:46] VITALS: BP 178/93; PULSE 98; RESP 18; TEMP 100.5; O2SAT 97
[2017-01-27 07:47] LABS: AUTOMATED NEUTROPHIL # 10.7 TH/MM3 (1.8-7.7); BASOPHIL # 0.1 TH/MM3 (0-0.2); BASOPHIL % 0.6 % (0.0-2.0); EOSINOPHIL # 0.1 TH/MM3 (0-0.4); EOSINOPHIL % 0.7 % (0.0-4.0); HEMATOCRIT 30.1 % (35.0-46.0); HEMO FLAGS DIFF FINAL; MEAN CELL VOLUME 78.5 FL (80.0-100.0); MEAN CORPUSCULAR HEMOGLOBIN 24.3 PG (27.0-34.0); MONO % 9.8 % (0.0-8.0); NEUT % 74.9 % (16.0-70.0); PLATELET COUNT 246 TH/MM3 (150-450); RED BLOOD COUNT 3.83 MIL/MM3 (4.00-5.30); RED CELL DISTRIBUTION WIDTH 16.3 % (11.6-17.2); WHITE BLOOD COUNT 14.2 TH/MM3 (4.0-11.0)
[2017-01-27] MEDS: ASPIRIN EC 81 MG TABEC PO SCH (07:58)
[2017-01-27] MEDS: MAGNESIUM HYDROXIDE SUSP 30 ML CUP PO SCH ×2 (07:58→21:00)
[2017-01-27] MEDS: metFORMIN HCL 500 MG TAB PO SCH ×2 (07:58→18:44)
[2017-01-27] MEDS: APIXABAN 2.5 MG TABLET PO SCH ×2 (07:58→22:42)
[2017-01-27] MEDS: FAMOTIDINE 20 MG TAB PO SCH ×2 (07:58→22:42)
[2017-01-27] MEDS: DOCUSATE SODIUM 100 MG CAP PO SCH ×2 (07:58→21:00)
[2017-01-27] MEDS: ATORVASTATIN 80 MG TAB PO SCH (07:58)
[2017-01-27] MEDS: HYDROCHLOROTHIAZIDE 12.5 MG CAP PO SCH (07:58)
[2017-01-27] MEDS: LISINOPRIL 10 MG TAB PO SCH (07:58)
[2017-01-27] MEDS: METOPROLOL TARTRATE 50 MG TAB PO SCH ×2 (07:58→22:42)
[2017-01-27] MEDS: MULTIVITAMINS/MINERALS THERAPEUTIC TAB PO SCH ×2 (07:59→22:41)
[2017-01-27] MEDS: GABAPENTIN 400 MG CAP PO SCH ×2 (07:59→22:41)
[2017-01-27] MEDS: ACETAMINOPHEN/HYDROcodone 325 MG/7.5 MG TAB PO PRN (07:59)
[2017-01-27] MEDS: SODIUM CHLORIDE 0.9% FLUSH 5 ML FLUSH IVF SCH ×2 (08:00→22:43)
[2017-01-27] MEDS ORDERED: BACITRACIN OINT 0.9 GM PKT TOP PRN (10:15)
[2017-01-27 12:00] VITALS: BP 155/82; PULSE 89; RESP 18; TEMP 98.6; O2SAT 97
[2017-01-27] MEDS: LACTATED RINGER'S 1000 ML INJ 1,000 ML IV SCH (12:03)
[2017-01-27 12:51] LABS: HEMOGLOBIN A1a 1.7 %; HEMOGLOBIN A1b 2.1 %; HEMOGLOBIN Ao 83.9 %; HEMOGLOBIN LA1C 1.8 %; HEMOGLOBIN P3 3.7 %
[2017-01-27] MEDS ORDERED: ONDANSETRON ODT 4 MG TAB PO PRN (13:15)
[2017-01-27] MEDS ORDERED: ACETAMINOPHEN/HYDROcodone 325 MG/5 MG TAB PO PRN (13:15)
--- NOTE | 2017-01-27 13:15 | PD.ORT.PN ---
Subjective Subjective Remarks pt having some pain in knee. Nausea.this AM not now. Objective Vitals Vital Signs Date Time Temp Pulse Resp B/P (MAP) Pulse Ox O2 Delivery O2 Flow Rate FiO2 01/27/17 07:46 100.5 98 18 178/93 (121) 97 01/27/17 00:24 99.8 94 20 147/80 (102) 95 01/26/17 20:41 100.7 106 20 147/82 (103) 95 01/26/17 16:00 100.4 96 18 165/86 (112) 99 I/O 01/26/17 01/26/17 01/26/17 01/27/17 01/27/17 01/27/17 07:00 15:00 23:00 07:00 15:00 23:00 Intake Total 1049 ml 960 ml Balance 1049 ml 960 ml Intake Oral 720 ml 960 ml IV Total 329 ml # Voids 2 3 1 0 # Bowel Movements 0 0 Result Diagram: 01/27/17 0738 01/26/17 0836 Imaging Last 24 hours Impressions Knee X-Ray 01/25/17 1003 Signed Impressions: Service Date/Time: Wednesday, January 25, 2017 10:16 - CONCLUSION: Expected postoperative changes status post arthroplasty. Sawyer Hernandez MD Objective Remarks Dressing dry and intact. NV intact to toes. No calf tenderness. Assessment & Plan Ortho Post Op Day #: 2 Problem List: Assessment and Plan OOB, PT, daily wound care. Home with HHC and PT on Saturday.Switch to [place] 5 instead of 7.5 q4h prn pain. Drake Schaeffer MD Jan 27, 2017 13:15
[2017-01-27] MEDS: ACETAMINOPHEN/HYDROcodone 325 MG/5 MG TAB PO PRN ×2 (14:42→18:45)
[2017-01-27 16:00] VITALS: BP 153/97; PULSE 94; RESP 17; TEMP 99.5; O2SAT 98
[2017-01-27] MEDS ORDERED: LISINOPRIL 10 MG TAB PO ONE (16:15)
--- NOTE | 2017-01-27 16:19 | HHI.PR ---
Subjective Remarks Follow up on patient with OA s/p L TKR. Patient seen and examined today. Patient complaining of severe postoperative left knee pain. Unable to sleep last night. (+)fevers. Denies any cough or shortness of breath. Denies any nausea, vomiting or abdominal pain. Denies any chest pain. Denies any bowel movement. Reports voiding without difficulty. Objective Vitals Vital Signs Date Time Temp Pulse Resp B/P (MAP) Pulse Ox O2 Delivery O2 Flow Rate FiO2 01/27/17 12:00 98.6 89 18 155/82 (106) 97 01/27/17 07:46 100.5 98 18 178/93 (121) 97 01/27/17 00:24 99.8 94 20 147/80 (102) 95 01/26/17 20:41 100.7 106 20 147/82 (103) 95 01/26/17 16:00 100.4 96 18 165/86 (112) 99 I/O 01/26/17 01/26/17 01/26/17 01/27/17 01/27/17 01/27/17 07:00 15:00 23:00 07:00 15:00 23:00 Intake Total 1049 ml 960 ml Balance 1049 ml 960 ml Intake Oral 720 ml 960 ml IV Total 329 ml # Voids 2 3 1 0 # Bowel Movements 0 0 Result Diagram: 01/27/17 0738 01/26/17 0836 Imaging Last Impressions Knee X-Ray 01/25/17 1003 Signed Impressions: Service Date/Time: Wednesday, January 25, 2017 10:16 - CONCLUSION: Expected postoperative changes status post arthroplasty. Sawyer Hernandez MD Objective Remarks GENERAL: This is a well-nourished, well-developed patient,appears to be in distress secondary to pain. Awake and alert. Sitting up in hospital bed. Upset, tearful. SKIN: No rashes, ecchymoses or lesions. Cool and dry. HEAD: Atraumatic. Normocephalic. EYES: Extraocular motions intact. No scleral icterus. No injection or drainage. ENT: Nose without bleeding or purulent drainage. Airway patent. NECK: Trachea midline. Supple. CARDIOVASCULAR: Regular rate and rhythm without murmurs, gallops, or rubs. RESPIRATORY: Clear to auscultation. Breath sounds equal bilaterally. No wheezes , rales, or rhonchi. GASTROINTESTINAL: Abdomen soft, non-tender, nondistended. No hepato-splenomegaly , or palpable masses. No guarding. MUSCULOSKELETAL: Status post left total knee replacement. Left leg in postoperative dressing that is clean, dry and intact. NEUROLOGICAL: Awake and alert. Able to move extremities. Normal speech. Medications and IVs Current Medications Medications (Trade) Dose Ordered Sig/Taty Route Start Time Stop Time Status Last Admin (Hibiclens 4% Top Soln) 1 applic ONCE TOPICAL 01/25/17 06:15 01/28/17 06:14 01/25/17 06:15 Clindamycin Phosphate 900 mg/ Sodium Chloride 106 ml @ 212 mls/hr ART HISTORIAN IV 01/25/17 06:00 01/25/17 07:00 (Lopressor) 25 mg ART HISTORIAN PRN PO 01/25/17 06:15 01/28/17 06:14 01/25/17 06:30 (Betadine 5% Antisepsis Kit) 1 applic ART HISTORIAN PRN EACH NARE 01/25/17 06:15 01/28/17 06:14 01/25/17 06:15 (Chlorhexidine 2% Cloth) 3 pack ART HISTORIAN PRN TOPICAL 01/25/17 06:15 01/28/17 06:14 01/25/17 06:15 (NovoLIN R INJ) See Protocol Table ... ART HISTORIAN PRN SQ 01/25/17 06:15 01/28/17 06:14 (Proair Hfa Inh) 2 puff Q4H PRN INH 01/25/17 10:00 (Elavil) 25 mg HS PO 01/25/17 21:00 01/26/17 21:13 (Ecotrin Ec) 81 mg DAILY PO 01/26/17 09:00 01/27/17 07:58 (Lipitor) 80 mg DAILY PO 01/26/17 09:00 01/27/17 07:58 (Flexeril) 10 mg HS PO 01/25/17 21:00 01/26/17 21:13 (Neurontin) 800 mg BID PO 01/25/17 21:00 01/27/17 07:59 (Microzide) 12.5 mg DAILY PO 01/26/17 09:00 01/27/17 07:58 (Motrin) 800 mg TID PRN PO 01/25/17 10:15 (Prinivil) 10 mg DAILY PO 01/26/17 09:00 01/27/17 07:58 (Glucophage) 500 mg BIDPC PO 01/25/17 18:00 01/27/17 07:58 (Lopressor) 50 mg BID PO 01/25/17 21:00 01/27/17 07:58 (Pepcid) 20 mg BID PO 01/25/17 21:00 01/27/17 07:58 Lactated Ringer's 1,000 ml @ 80 mls/hr [id number] IV 01/25/17 10:03 01/25/17 10:42 (NS Flush) 2 ml UNSCH PRN IVF 01/25/17 10:15 (NS Flush) 2 ml BID IVF 01/25/17 21:00 01/27/17 08:00 (Tylenol) 650 mg Q6H PRN PO 01/25/17 10:15 (Theragran M Tab) 1 tab BID PO 01/26/17 21:00 03/27/17 20:59 01/27/17 07:59 (Zofran Inj) 4 mg Q6H PRN IVP 01/25/17 10:15 01/27/17 00:39 (Colace) 100 mg BID PO 01/26/17 21:00 01/27/17 07:58 (Restoril) 15 mg HS PRN PO 01/25/17 10:15 (Bacitracin Oint Packet) 0.9 gm UNSCH X1 PRN TOP 01/27/17 10:15 01/29/17 10:14 (Eliquis) 2.5 mg BID PO 01/25/17 21:00 01/27/17 07:58 (Milk Of Magnesia Liq) 30 ml BID PO 01/26/17 09:00 01/27/17 07:58 (Senokot) 17.2 mg Q12H PRN PO 01/26/17 01:45 (Dulcolax Supp) 10 mg Q24H PRN RECTAL 01/26/17 01:45 (Lactulose Liq) 30 ml Q24H PRN PO 01/26/17 02:00 (NovoLOG SUPPLEMENTAL SCALE) 1 ACHS SLIDING SCALE SQ 01/26/17 11:00 (Beattie 5-325 Mg) 1 tab Q4H PRN PO 01/27/17 13:15 (Beattie 5-325 Mg) 2 tab Q4H PRN PO 01/27/17 13:15 01/27/17 14:42 (Zofran Odt) 4 mg Q6H PRN PO 01/27/17 13:15 A/P Assessment and Plan 57-year-old female with past medical history significant for osteoarthritis with chronic left knee pain affecting her activities of daily living and who failed attempts at outpatient therapy. She underwent a left total knee replacement performed by Dr. Schaeffer who has requested patient be seen in consultation for medical management of HTN, DM, CAD and other chronic medical conditions. Osteoarthritis of the left knee failed attempts at outpatient therapy status post left total knee replacement Nausea/vomiting improved Postoperative pain not well controlled earlier today. Continue Beattie. Toradol IV ordered the patient did not receive utilizing IV access. Patient more comfortable at present per nursing staff. DVT prophylaxis with Eliquis 2.5 mg twice a day Continue participation with PT Per Ortho, plan for discharge to home on Saturday with [facility] Zofran prn nausea/vomiting Leukocytosis White count trending up Tmax 100.7, now 98.6. Likely reactive/stress. Monitor. UA pending. CXR ordered. possibly reactive/stress response Repeat labs in a.m. to monitor trend Coronary artery disease status post previous [place] and cardiac stent implant Patient is asymptomatic and has no complaints of chest pain at this time Continue aspirin 81 mg daily Nitroglycerin when necessary chest pain Monitor Hypertension, stable not well controlled Continue patient on home dose of hydrochlorothiazide and metoprolol. Increase lisinopril dose to 20mg daily. Monitor BP Diabetes mellitus Continue patient on home dose of metformin 500 mg twice a day blood sugar 116 Accu-Chek Insulin sliding scale hgbA1c 6.1 Diabetic diet COPD, not in acute exacerbation Albuterol inhaler when necessary Monitor respiratory status Neuropathy Continue patient on home dose of gabapentin and amitriptyline Anemia, microcytic hypochromic mild Appears stable Hemoglobin trending up Ongoing tobaccoism Encourage cessation/counseling Vitamin D deficiency Less vitamin d level of the system is 11.2 12/12/12 Vitamin D level normal at 31.2 H/O breast cancer 2006, stable GERD Pepcid 20mg BID DVT prophylaxis Eliquis 2.5 mg twice a day Discussed with patient and Dr. Jorge William,Ashly GARDNER Jan 27, 2017 16:19
[2017-01-27] MEDS ORDERED: SULFAMETHOXAZOLE-TRIMETHOPRIM DS 800-160 MG TAB PO ONE (16:45)
--- NOTE | 2017-01-27 16:46 | RADRPT ---
EXAM DATE/TIME: 01/27/2017 16:04 [place] COMPARISON: CHEST SINGLE AP, April 10, 2016, 11:35. INDICATIONS : Atelectasis MEDICAL HISTORY : Cardiovascular disease. Carcinoma, breast. Hypertension. SURGICAL HISTORY : Carotid stent. ENCOUNTER: Initial ACUITY: 4 - 6 days PAIN SCORE: 0/10 LOCATION: chest FINDINGS: There is slight cardiomegaly and perivascular pulmonary edema. Focal consolidation is not seen. CONCLUSION: Slight CHF. Jihan Olivia MD on January 27, 2017 at 16:44 Board Certified Radiologist. This report was verified electronically.
[2017-01-27] MEDS: LACTOBACILLUS ACIDOPHILUS TAB PO SCH (18:44)
[2017-01-27 20:32] VITALS: BP 155/84; PULSE 104; RESP 18; TEMP 99.6; O2SAT 96
[2017-01-27] MEDS: CYCLOBENZAPRINE HCL 10 MG TAB PO SCH (22:42)
[2017-01-27] MEDS: AMITRIPTYLINE HCL 25 MG TAB PO SCH (22:42)
[2017-01-27 23:42] VITALS: BP 138/63; PULSE 99; RESP 18; TEMP 100.8; O2SAT 95
[2017-01-28] MEDS: LACTATED RINGER'S 1000 ML INJ 1,000 ML IV SCH (00:33)
[2017-01-28] MEDS: ACETAMINOPHEN/HYDROcodone 325 MG/5 MG TAB PO PRN ×4 (04:30→22:08)
[2017-01-28 05:25] LABS: AUTOMATED NEUTROPHIL # 10.1 TH/MM3 (1.8-7.7); BASOPHIL % 0.2 % (0.0-2.0); EOSINOPHIL # 0.1 TH/MM3 (0-0.4); EOSINOPHIL % 0.6 % (0.0-4.0); HEMATOCRIT 28.1 % (35.0-46.0); HEMO FLAGS DIFF FINAL; LYMPH % 11.6 % (9.0-44.0); LYMPHOCYTE # 1.5 TH/MM3 (1.0-4.8); MEAN CELL VOLUME 78.3 FL (80.0-100.0); MEAN CORPUSCULAR HEMOGLOBIN 24.1 PG (27.0-34.0); MEAN CORPUSCULAR HGB CONC 30.7 % (32.0-36.0); MONO % 7.4 % (0.0-8.0); NEUT % 80.2 % (16.0-70.0); PLATELET COUNT 246 TH/MM3 (150-450); RED BLOOD COUNT 3.58 MIL/MM3 (4.00-5.30); RED CELL DISTRIBUTION WIDTH 16.2 % (11.6-17.2); WHITE BLOOD COUNT 12.6 TH/MM3 (4.0-11.0)
[2017-01-28 05:39] LABS: BICARBONATE 25.3 MEQ/L (21.0-32.0)
[2017-01-28] MEDS: INSULIN ASPART SUPPLEMENTAL SCALE SQ SCH ×4 (07:00→21:00)
[2017-01-28 08:00] VITALS: BP 157/92; PULSE 103; RESP 19; TEMP 97.5; O2SAT 97
[2017-01-28] MEDS: SODIUM CHLORIDE 0.9% FLUSH 5 ML FLUSH IVF SCH ×2 (09:00→21:00)
[2017-01-28] MEDS: DOCUSATE SODIUM 100 MG CAP PO SCH ×2 (09:00→22:06)
[2017-01-28] MEDS: MAGNESIUM HYDROXIDE SUSP 30 ML CUP PO SCH ×2 (09:00→22:06)
--- NOTE | 2017-01-28 09:23 | HHI.PR ---
Subjective Remarks Follow up on patient with OA s/p L TKR. Patient seen and examined today. Patient with diarrhea yesterday. None this morning. Patient denies any nausea , vomiting or abdominal pain. Spiking fever - Tmax 100.8. Patients denies any cough or shortness of breath. Denies any chest pain. Denies any dysuria. Left knee pain better controlled. Objective Vitals Vital Signs Date Time Temp Pulse Resp B/P (MAP) Pulse Ox O2 Delivery O2 Flow Rate FiO2 01/28/17 08:00 97.5 103 19 157/92 (113) 97 01/27/17 23:42 100.8 99 18 138/63 (88) 95 01/27/17 20:32 99.6 104 18 155/84 (107) 96 01/27/17 16:00 99.5 94 17 153/97 (115) 98 01/27/17 12:00 98.6 89 18 155/82 (106) 97 I/O 01/27/17 01/27/17 01/27/17 01/28/17 01/28/17 01/28/17 07:00 15:00 23:00 07:00 15:00 23:00 Intake Total 720 ml 480 ml 360 ml Output Total 550 ml Balance 720 ml -70 ml 360 ml Intake Oral 720 ml 480 ml 360 ml Output Urine Total 550 ml # Voids 0 3 2 2 # Bowel Movements 0 3 1 0 Result Diagram: 01/28/17 0346 01/28/17 0346 Imaging Last Impressions Knee X-Ray 01/25/17 1003 Signed Impressions: Service Date/Time: Wednesday, January 25, 2017 10:16 - CONCLUSION: Expected postoperative changes status post arthroplasty. Sawyer Hernandez MD Objective Remarks GENERAL: This is a well-nourished, well-developed patient INAD. Awake and alert. Sitting up in hospital bed. SKIN: No rashes, ecchymoses or lesions. Cool and dry. HEAD: Atraumatic. Normocephalic. EYES: Extraocular motions intact. No scleral icterus. No injection or drainage. ENT: Nose without bleeding or purulent drainage. Airway patent. NECK: Trachea midline. Supple. CARDIOVASCULAR:Tachycardiac without murmurs, gallops, or rubs. RESPIRATORY: Clear to auscultation. Breath sounds equal bilaterally. No wheezes , rales, or rhonchi. GASTROINTESTINAL: Abdomen soft, non-tender, nondistended. No hepato-splenomegaly , or palpable masses. No guarding. MUSCULOSKELETAL: Status post left total knee replacement. Left leg in postoperative dressing that is clean, dry and intact. Trace-1+ pitting edema BLEs. NEUROLOGICAL: Awake and alert. Able to move extremities. Normal speech. 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 IV 01/25/17 06:00 01/25/17 07:00 (Proair Hfa Inh) 2 puff Q4H PRN INH 01/25/17 10:00 (Elavil) 25 mg HS PO 01/25/17 21:00 01/27/17 22:42 (Ecotrin Ec) 81 mg DAILY PO 01/26/17 09:00 01/27/17 07:58 (Lipitor) 80 mg DAILY PO 01/26/17 09:00 01/27/17 07:58 (Flexeril) 10 mg HS PO 01/25/17 21:00 01/27/17 22:42 (Neurontin) 800 mg BID PO 01/25/17 21:00 01/27/17 22:41 (Microzide) 12.5 mg DAILY PO 01/26/17 09:00 01/27/17 07:58 (Motrin) 800 mg TID PRN PO 01/25/17 10:15 (Glucophage) 500 mg BIDPC PO 01/25/17 18:00 01/27/17 18:44 (Lopressor) 50 mg BID PO 01/25/17 21:00 01/27/17 22:42 (Pepcid) 20 mg BID PO 01/25/17 21:00 01/27/17 22:42 Lactated Ringer's 1,000 ml @ 80 mls/hr [id number] IV 01/25/17 10:03 01/25/17 10:42 (NS Flush) 2 ml UNSCH PRN IVF 01/25/17 10:15 (NS Flush) 2 ml BID IVF 01/25/17 21:00 01/27/17 08:00 (Tylenol) 650 mg Q6H PRN PO 01/25/17 10:15 (Theragran M Tab) 1 tab BID PO 01/26/17 21:00 03/27/17 20:59 01/27/17 22:41 (Zofran Inj) 4 mg Q6H PRN IVP 01/25/17 10:15 01/27/17 00:39 (Colace) 100 mg BID PO 01/26/17 21:00 01/27/17 07:58 (Restoril) 15 mg HS PRN PO 01/25/17 10:15 (Bacitracin Oint Packet) 0.9 gm UNSCH X1 PRN TOP 01/27/17 10:15 01/29/17 10:14 (Eliquis) 2.5 mg BID PO 01/25/17 21:00 01/27/17 22:42 (Milk Of Magnesia Liq) 30 ml BID PO 01/26/17 09:00 01/27/17 07:58 (Senokot) 17.2 mg Q12H PRN PO 01/26/17 01:45 (Dulcolax Supp) 10 mg Q24H PRN RECTAL 01/26/17 01:45 (Lactulose Liq) 30 ml Q24H PRN PO 01/26/17 02:00 (NovoLOG SUPPLEMENTAL SCALE) 1 ACHS SLIDING SCALE SQ 01/26/17 11:00 ([place] 5-325 Mg) 1 tab Q4H PRN PO 01/27/17 13:15 ([place] 5-325 Mg) 2 tab Q4H PRN PO 01/27/17 13:15 01/28/17 04:30 (Zofran Odt) 4 mg Q6H PRN PO 01/27/17 13:15 (Prinivil) 20 mg DAILY PO 01/28/17 09:00 (Bactrim Ds 800-160 Mg) 1 tab Q12HR PO 01/28/17 09:00 (Lactinex) 1 tab TID PO 01/27/17 18:00 01/27/17 18:44 A/P Assessment and Plan 57-year-old female with past medical history significant for osteoarthritis with chronic left knee pain affecting her activities of daily living and who failed attempts at outpatient therapy. She underwent a left total knee replacement performed by Dr. Schaeffer who has requested patient be seen in consultation for medical management of HTN, DM, CAD and other chronic medical conditions. Osteoarthritis of the left knee failed attempts at outpatient therapy status post left total knee replacement Continue postoperative pain management DVT prophylaxis with Eliquis 2.5 mg twice a day Continue participation with PT Per Ortho, plan for discharge to home on Saturday with [facility] - patient not ready for discharge. Spiking fevers. Tmax 100.8. Zofran prn nausea/vomiting Leukocytosis Fever SIRS - patient meets SIRS criteria with tachycardia HR 103 and elevated WBC 12.6. improved 14.2 --> 12.6 Tmax 100.8, now 97.5. Started on Bactrim empirically. Continue. Lactobacillus TID UA pending. CXR personally reviewed showing slight CHF Repeat labs in a.m. to monitor trend Coronary artery disease status post previous [place] and cardiac stent implant Diastolic dysfunction Patient is asymptomatic and has no complaints of chest pain at this time Continue aspirin 81 mg daily Echocardiogram 2011 shows EF 55-60% and grade 1 diastolic dysfunction. New echocardiogram ordered. 1800ml fluid restrictions. Sodium restriction. Nitroglycerin when necessary chest pain Monitor Hypertension, stable improved Continue patient on home dose of hydrochlorothiazide and metoprolol. Continue on increased lisinopril dose to 20mg daily. Monitor BP Diabetes mellitus Continue patient on home dose of metformin 500 mg twice a day blood sugar not recorded for this am Accu-Chek Insulin sliding scale hgbA1c 6.1 Diabetic diet COPD, not in acute exacerbation Albuterol inhaler when necessary Monitor respiratory status Neuropathy Continue patient on home dose of gabapentin and amitriptyline Anemia, microcytic hypochromic trending downward iron studies ordered stool hemoccult am labs to monitor trend Ongoing tobaccoism Encourage cessation/counseling Vitamin D deficiency Less vitamin d level of the system is 11.2 12/12/12 Vitamin D level normal at 31.2 H/O breast cancer 2007, stable GERD Pepcid 20mg BID DVT prophylaxis Eliquis 2.5 mg twice a day Discussed with patient, nursing staff and Ashly Mireles Jan 28, 2017 09:23
--- NOTE | 2017-01-28 09:27 | PD.ORT.PN ---
Subjective Subjective Remarks pt having some pain in knee but feels she is ready to go home. Objective Vitals Vital Signs Date Time Temp Pulse Resp B/P (MAP) Pulse Ox O2 Delivery O2 Flow Rate FiO2 01/28/17 08:00 97.5 103 19 157/92 (113) 97 01/27/17 23:42 100.8 99 18 138/63 (88) 95 01/27/17 20:32 99.6 104 18 155/84 (107) 96 01/27/17 16:00 99.5 94 17 153/97 (115) 98 01/27/17 12:00 98.6 89 18 155/82 (106) 97 I/O 01/27/17 01/27/17 01/27/17 01/28/17 01/28/17 01/28/17 07:00 15:00 23:00 07:00 15:00 23:00 Intake Total 720 ml 480 ml 360 ml Output Total 550 ml Balance 720 ml -70 ml 360 ml Intake Oral 720 ml 480 ml 360 ml Output Urine Total 550 ml # Voids 0 3 2 2 # Bowel Movements 0 3 1 0 Result Diagram: 01/28/17 0346 01/28/17 0346 Imaging Last 24 hours Impressions Knee X-Ray 01/25/17 1003 Signed Impressions: Service Date/Time: Wednesday, January 25, 2017 10:16 - CONCLUSION: Expected postoperative changes status post arthroplasty. Sawyer Hernandez MD Objective Remarks Dressing dry and intact. NV intact to toes. No calf tenderness. Assessment & Plan Ortho Post Op Day #: 3 Problem List: Assessment and Plan OOB, PT, daily wound care. Home with HHC and PT when cleared by medical for possible urinary tract infection. rDake Schaeffer MD Jan 28, 2017 09:27
--- NOTE | 2017-01-28 09:32 | HHI.DS ---
Discharge Summary Admission Date Jan 25, 2017 at 05:38 Discharge Date: Jan 28, 2017 Admitting Diagnosis Osteoarthritic degeneration left knee Diagnosis: (1) Status post total left knee replacement Diagnosis: Principal ICD Codes: Z96.652 - Presence of left artificial knee joint Status: Acute Brief History This is a 57 year old female patient CBC/BMP: 01/28/17 0346 01/28/17 0346 Significant Findings Laboratory Tests Test 01/26/17 08:36 01/27/17 02:34 01/27/17 07:38 01/28/17 00:00 White Blood Count 11.9 TH/MM3 (4.0-11.0) 14.2 TH/MM3 (4.0-11.0) Red Blood Count 3.76 MIL/MM3 (4.00-5.30) 3.83 MIL/MM3 (4.00-5.30) Hemoglobin 9.1 GM/DL (11.6-15.3) 8.9 GM/DL (11.6-15.3) 9.3 GM/DL (11.6-15.3) Hematocrit 30.0 % (35.0-46.0) 28.0 % (35.0-46.0) 30.1 % (35.0-46.0) Mean Corpuscular Volume 79.8 FL (80.0-100.0) 78.5 FL (80.0-100.0) Mean Corpuscular Hemoglobin 24.1 PG (27.0-34.0) 24.3 PG (27.0-34.0) Mean Corpuscular Hemoglobin Concent 30.2 % (32.0-36.0) 31.0 % (32.0-36.0) Monocytes (%) (Auto) 10.1 % (0.0-8.0) 9.8 % (0.0-8.0) Neutrophils # (Auto) 7.8 TH/MM3 (1.8-7.7) 10.7 TH/MM3 (1.8-7.7) Monocytes # (Auto) 1.2 TH/MM3 (0-0.9) 1.4 TH/MM3 (0-0.9) Random Glucose 109 MG/DL (74-106) Total Protein 5.7 GM/DL (6.4-8.2) Albumin 3.0 GM/DL (3.4-5.0) Calcium Level 8.0 MG/DL (8.5-10.1) Aspartate Amino Transf (AST/SGOT) 13 U/L (15-37) Estimat Glomerular Filtration Rate 84 ML/MIN (>89) Hemoglobin A1c 6.1 % (4.3-6.0) Mean Platelet Volume 6.8 FL (7.0-11.0) Neutrophils (%) (Auto) 74.9 % (16.0-70.0) Test 01/28/17 03:46 White Blood Count 12.6 TH/MM3 (4.0-11.0) Red Blood Count 3.58 MIL/MM3 (4.00-5.30) Hemoglobin 8.6 GM/DL (11.6-15.3) Hematocrit 28.1 % (35.0-46.0) Mean Corpuscular Volume 78.3 FL (80.0-100.0) Mean Corpuscular Hemoglobin 24.1 PG (27.0-34.0) Mean Corpuscular Hemoglobin Concent 30.7 % (32.0-36.0) Neutrophils (%) (Auto) 80.2 % (16.0-70.0) Neutrophils # (Auto) 10.1 TH/MM3 (1.8-7.7) Random Glucose 111 MG/DL (74-106) Sodium Level 133 MEQ/L (136-145) Estimat Glomerular Filtration Rate 79 ML/MIN (>89) PE at Discharge Dressing dry and intact. NV intact to toes. No calf tenderness. Hospital Course Patient was admitted and on January 25, 2017 at which time she underwent a left total knee arthroplasty. She received a course of prophylactic IV antibiotics and within 23 hours started on anticoagulation therapy. She then began with by mouth pain meds tolerating them well. She did have about a low-grade fever which was felt to be UTI by her hospitalist. She was managed with antibiotics for this. Cultures were obtained and are still pending. She began out of bed tolerating food and fluid well in physical therapy. By the third postoperative day she was afebrile. She remained neurovascularly intact and was discharged by orthopedics on the third postoperative day in good condition awaiting final discharge orders by the hospitalist. She has a planned follow-up in the office the following week and has a prescription for home healthcare physical therapy by mouth pain meds and anticoagulation therapy. Pt Condition on Discharge: Good Discharge Disposition: Disch w/ Home Health Serv Discharge Instructions Diet Instructions: As Tolerated, No Restrictions Activities You Can Perform: Full Weight Bearing, Shower Only-No Bath Activities to Avoid: Bathing, Driving Drake Schaeffer MD Jan 28, 2017 09:32
[2017-01-28] MEDS: SULFAMETHOXAZOLE-TRIMETHOPRIM DS 800-160 MG TAB PO SCH ×2 (09:40→22:06)
[2017-01-28] MEDS: LISINOPRIL 10 MG TAB PO SCH (09:40)
[2017-01-28] MEDS: GABAPENTIN 400 MG CAP PO SCH ×2 (09:41→22:06)
[2017-01-28] MEDS: metFORMIN HCL 500 MG TAB PO SCH ×2 (09:41→16:56)
[2017-01-28] MEDS: HYDROCHLOROTHIAZIDE 12.5 MG CAP PO SCH (09:42)
[2017-01-28] MEDS: FAMOTIDINE 20 MG TAB PO SCH ×2 (09:42→22:06)
[2017-01-28] MEDS: METOPROLOL TARTRATE 50 MG TAB PO SCH ×2 (09:42→22:06)
[2017-01-28] MEDS: MULTIVITAMINS/MINERALS THERAPEUTIC TAB PO SCH ×2 (09:42→22:07)
[2017-01-28] MEDS: ASPIRIN EC 81 MG TABEC PO SCH (09:42)
[2017-01-28] MEDS: LACTOBACILLUS ACIDOPHILUS TAB PO SCH ×3 (09:42→16:57)
[2017-01-28] MEDS: ATORVASTATIN 80 MG TAB PO SCH (09:42)
[2017-01-28] MEDS: APIXABAN 2.5 MG TABLET PO SCH ×2 (10:01→22:06)
[2017-01-28 11:33] LABS: TRANSFERRIN IRON PROFILE 128 MG/DL (200-360)
[2017-01-28 11:36] LABS: FERRITIN 1234 NG/ML (8-252)
[2017-01-28 12:00] VITALS: BP 153/88; PULSE 82; RESP 18; TEMP 97.8; O2SAT 100
[2017-01-28 14:36] LABS: BACTERIA, URINE MANY /hpf; BLOOD, URINE NEG (NEG); COMMENT (UR) CULTURE INDICATED; CULTURE IF INDICATED CULTURE INDICATED; GLUCOSE,URINE NEG (NEG); KETONE, URINE NEG (NEG); NITRITE,URINE POS (NEG); SQUAMOUS EPITHELIAL CELL URINE 2 /hpf (0-5); URINE COLOR YELLOW (YELLW/STRAW)
[2017-01-28 16:00] VITALS: BP 150/89; PULSE 81; RESP 19; TEMP 98.6; O2SAT 100
[2017-01-28 20:25] VITALS: BP 127/74; PULSE 113; RESP 18; TEMP 99.7; O2SAT 98
[2017-01-28] MEDS: CYCLOBENZAPRINE HCL 10 MG TAB PO SCH (22:06)
[2017-01-28] MEDS: AMITRIPTYLINE HCL 25 MG TAB PO SCH (22:06)
[2017-01-29] VITALS: BP 112/73; PULSE 85; RESP 18; TEMP 98.9; O2SAT 98
[2017-01-29] MEDS: ACETAMINOPHEN/HYDROcodone 325 MG/5 MG TAB PO PRN ×2 (02:07→06:23)
[2017-01-29] MEDS: INSULIN ASPART SUPPLEMENTAL SCALE SQ SCH (06:36)
[2017-01-29] MEDS: LACTOBACILLUS ACIDOPHILUS TAB PO SCH (07:51)
[2017-01-29] MEDS: APIXABAN 2.5 MG TABLET PO SCH (07:51)
[2017-01-29] MEDS: metFORMIN HCL 500 MG TAB PO SCH (07:51)
[2017-01-29] MEDS: GABAPENTIN 400 MG CAP PO SCH (07:51)
[2017-01-29] MEDS: ASPIRIN EC 81 MG TABEC PO SCH (07:52)
[2017-01-29] MEDS: FAMOTIDINE 20 MG TAB PO SCH (07:52)
[2017-01-29] MEDS: HYDROCHLOROTHIAZIDE 12.5 MG CAP PO SCH (07:52)
[2017-01-29] MEDS: MULTIVITAMINS/MINERALS THERAPEUTIC TAB PO SCH (07:52)
[2017-01-29] MEDS: ATORVASTATIN 80 MG TAB PO SCH (07:52)
[2017-01-29] MEDS: LISINOPRIL 10 MG TAB PO SCH (07:52)
[2017-01-29 07:53] VITALS: BP 137/90; PULSE 95; RESP 18; TEMP 98.2; O2SAT 97
[2017-01-29] MEDS: METOPROLOL TARTRATE 50 MG TAB PO SCH (07:53)
[2017-01-29] MEDS: SULFAMETHOXAZOLE-TRIMETHOPRIM DS 800-160 MG TAB PO SCH (07:53)
[2017-01-29] MEDS: DOCUSATE SODIUM 100 MG CAP PO SCH (07:59)
[2017-01-29] MEDS: SODIUM CHLORIDE 0.9% FLUSH 5 ML FLUSH IVF SCH (07:59)
[2017-01-29] MEDS: MAGNESIUM HYDROXIDE SUSP 30 ML CUP PO SCH (07:59)
[2017-01-29 08:00] LABS: HEMATOCRIT 24.2 % (35.0-46.0); MEAN CELL VOLUME 77.4 FL (80.0-100.0); MEAN CORPUSCULAR HEMOGLOBIN 24.8 PG (27.0-34.0); PLATELET COUNT 283 TH/MM3 (150-450); RED BLOOD COUNT 3.13 MIL/MM3 (4.00-5.30); RED CELL DISTRIBUTION WIDTH 15.7 % (11.6-17.2); REVIEW FLAG FINAL; WHITE BLOOD COUNT 10.8 TH/MM3 (4.0-11.0)
[2017-01-29 08:12] LABS: BICARBONATE 25.8 MEQ/L (21.0-32.0); POTASSIUM 3.8 MEQ/L (3.5-5.1)
[2017-01-29] MEDS ORDERED: SULF1TAB23 PO (08:14)
[2017-01-29] MEDS ORDERED: LACTTAB8 PO (08:14)
--- NOTE | 2017-01-29 09:56 | PD.ORT.PN ---
Subjective Subjective Remarks pt feels much better and less painful. Ready for dc to home today. Objective Vitals Vital Signs Date Time Temp Pulse Resp B/P (MAP) Pulse Ox O2 Delivery O2 Flow Rate FiO2 01/29/17 07:53 98.2 95 18 137/90 (106) 97 01/29/17 00:00 98.9 85 18 112/73 (86) 98 01/28/17 20:25 99.7 113 18 127/74 (91) 98 01/28/17 16:00 98.6 81 19 150/89 (109) 100 01/28/17 12:00 97.8 82 18 153/88 (109) 100 I/O 01/28/17 01/28/17 01/28/17 01/29/17 01/29/17 01/29/17 07:00 15:00 23:00 07:00 15:00 23:00 Intake Total 360 ml 480 ml 240 ml 240 ml Output Total 1000 ml Balance 360 ml -520 ml 240 ml 240 ml Intake Oral 360 ml 480 ml 240 ml 240 ml Output Urine Total 1000 ml # Voids 2 2 1 3 # Bowel Movements 0 0 3 Result Diagram: 01/29/17 0700 01/29/17 0700 Imaging Last 24 hours Impressions Knee X-Ray 01/25/17 1003 Signed Impressions: Service Date/Time: Wednesday, January 25, 2017 10:16 - CONCLUSION: Expected postoperative changes status post arthroplasty. Sawyer Hernandez MD Objective Remarks Dressing dry and intact. NV intact to toes. No calf tenderness. Assessment & Plan Ortho Post Op Day #: 4 Problem List: (1) Status post total left knee replacement ICD Codes: Z96.652 - Presence of left artificial knee joint Status: Acute Assessment and Plan Home today with HHC and PT. Drake Schaeffer MD Jan 29, 2017 09:56
--- NOTE | 2017-01-29 12:04 | HHI.PR ---
Subjective Remarks Follow up on patient with OA s/p L TKR. Patient seen and examined today. Patient denied diarrhea over past 24 hours. Reported left knee pain was much improved and reported it as 5/10 at time of visit. Pt reported she has life long history of anemia and is followed by Dr. 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 Pt questioning when "I can go home." She denied chest pain, shortness of breath, light headedness. Additionally, pt denied, nausea, vomiting, abdominal pain. Per RN (Dina) pt with one bout of diarrhea over past 24 hours, no stool collected for occult blood assay as of this visit. Otherwise, no acute issues noted over night or since start of shift. Objective Vitals Vital Signs Date Time Temp Pulse Resp B/P (MAP) Pulse Ox O2 Delivery O2 Flow Rate FiO2 01/29/17 07:53 98.2 95 18 137/90 (106) 97 01/29/17 00:00 98.9 85 18 112/73 (86) 98 01/28/17 20:25 99.7 113 18 127/74 (91) 98 01/28/17 16:00 98.6 81 19 150/89 (109) 100 01/28/17 12:00 97.8 82 18 153/88 (109) 100 I/O 01/28/17 01/28/17 01/28/17 01/29/17 01/29/17 01/29/17 07:00 15:00 23:00 07:00 15:00 23:00 Intake Total 360 ml 480 ml 240 ml 240 ml Output Total 1000 ml Balance 360 ml -520 ml 240 ml 240 ml Intake Oral 360 ml 480 ml 240 ml 240 ml Output Urine Total 1000 ml # Voids 2 2 1 3 # Bowel Movements 0 0 3 Result Diagram: 01/29/17 0700 01/29/17 0700 Imaging Last Impressions Chest X-Ray 01/27/17 0000 Signed Impressions: Service Date/Time: Friday, January 27, 2017 16:04 - CONCLUSION: Slight CHF. K. Brian Olivia MD Knee X-Ray 01/25/17 1003 Signed Impressions: Service Date/Time: Wednesday, January 25, 2017 10:16 - CONCLUSION: Expected postoperative changes status post arthroplasty. Sawyer Hernandez MD Objective Remarks GENERAL: Pt encountered sitting up in bedside chair, pleasant and cooperative. SKIN: Warm and dry. Site of recent left left knee arthroplasty not examined. HEAD: Normocephalic. EYES: No scleral icterus. No injection or drainage. NECK: Supple, trachea midline. No lymphadenopathy. CARDIOVASCULAR: Regular rate and rhythm without murmurs, gallops, or rubs. RESPIRATORY: Breath sounds equal bilaterally. No accessory muscle use. GASTROINTESTINAL: Abdomen soft, non-tender, nondistended. MUSCULOSKELETAL: No cyanosis, or edema. PSYCHIATRIC: Alert and oriented x 3, no overt signs of depression/anxiety. Procedures Left knee total arthroplasty. Medications and IVs Current Medications Medications (Trade) Dose Ordered Sig/Taty Route Start Time Stop Time Status Last Admin Clindamycin Phosphate 900 mg/ Sodium Chloride 106 ml @ 212 mls/hr BAG PRESSER IV 01/25/17 06:00 01/25/17 07:00 (Proair Hfa Inh) 2 puff Q4H PRN INH 01/25/17 10:00 (Elavil) 25 mg HS PO 01/25/17 21:00 01/28/17 22:06 (Ecotrin Ec) 81 mg DAILY PO 01/26/17 09:00 01/29/17 07:52 (Lipitor) 80 mg DAILY PO 01/26/17 09:00 01/29/17 07:52 (Flexeril) 10 mg HS PO 01/25/17 21:00 01/28/17 22:06 (Neurontin) 800 mg BID PO 01/25/17 21:00 01/29/17 07:51 (Microzide) 12.5 mg DAILY PO 01/26/17 09:00 01/29/17 07:52 (Motrin) 800 mg TID PRN PO 01/25/17 10:15 (Glucophage) 500 mg BIDPC PO 01/25/17 18:00 01/29/17 07:51 (Lopressor) 50 mg BID PO 01/25/17 21:00 01/29/17 07:53 (Pepcid) 20 mg BID PO 01/25/17 21:00 01/29/17 07:52 (NS Flush) 2 ml UNSCH PRN IVF 01/25/17 10:15 (NS Flush) 2 ml BID IVF 01/25/17 21:00 01/28/17 09:00 (Tylenol) 650 mg Q6H PRN PO 01/25/17 10:15 (Theragran M Tab) 1 tab BID PO 01/26/17 21:00 03/27/17 20:59 01/29/17 07:52 (Zofran Inj) 4 mg Q6H PRN IVP 01/25/17 10:15 01/27/17 00:39 (Colace) 100 mg BID PO 01/26/17 21:00 01/28/17 22:06 (Restoril) 15 mg HS PRN PO 01/25/17 10:15 (Eliquis) 2.5 mg BID PO 01/25/17 21:00 01/29/17 07:51 (Milk Of Magnesia Liq) 30 ml BID PO 01/26/17 09:00 01/28/17 22:06 (Senokot) 17.2 mg Q12H PRN PO 01/26/17 01:45 (Dulcolax Supp) 10 mg Q24H PRN RECTAL 01/26/17 01:45 (Lactulose Liq) 30 ml Q24H PRN PO 01/26/17 02:00 (NovoLOG SUPPLEMENTAL SCALE) 1 ACHS SLIDING SCALE SQ 01/26/17 11:00 (Calvin 5-325 Mg) 1 tab Q4H PRN PO 01/27/17 13:15 (Calvin 5-325 Mg) 2 tab Q4H PRN PO 01/27/17 13:15 01/29/17 06:23 (Zofran Odt) 4 mg Q6H PRN PO 01/27/17 13:15 (Prinivil) 20 mg DAILY PO 01/28/17 09:00 01/29/17 07:52 (Bactrim Ds 800-160 Mg) 1 tab Q12HR PO 01/28/17 09:00 01/29/17 07:53 (Lactinex) 1 tab TID PO 01/27/17 18:00 01/29/17 07:51 Urinary Catheter: No A/P Assessment and Plan 57-year-old female with past medical history significant for osteoarthritis with chronic left knee pain affecting her activities of daily living and who failed attempts at outpatient therapy. She underwent a left total knee replacement performed by Dr. Schaeffer who has requested patient be seen in consultation for medical management of HTN, DM, CAD and other chronic medical conditions. Fever: resolved over past 24hours. Leukocytosis: Resolved. Anemia: reportedly lfe long duration, followed by Dr. Mcwilliams (hematology/oncology). Cleared for discharge. Osteoarthritis of the left knee failed attempts at outpatient therapy status post left total knee replacement Continue postoperative pain management DVT prophylaxis with Eliquis 2.5 mg twice a day Continue participation with PT Per Ortho, plan for discharge to home on Saturday with [facility] - patient not ready for discharge. Spiking fevers. Tmax 100.8. Zofran prn nausea/vomiting Leukocytosis Fever SIRS - patient meets SIRS criteria with tachycardia HR 103 and elevated WBC 12.6. improved 14.2 --> 12.6-->10.8 Tmax 100.8, now afebrile. Started on Bactrim empirically. Continue. Lactobacillus TID UA pending. CXR showing slight CHF Repeat labs in a.m. to monitor trend, imoproving. Coronary artery disease status post previous AL and cardiac stent implant Diastolic dysfunction Patient is asymptomatic and has no complaints of chest pain at this time Continue aspirin 81 mg daily Echocardiogram 2011 shows EF 55-60% and grade 1 diastolic dysfunction. New echocardiogram ordered. 1800ml fluid restrictions. Sodium restriction. Nitroglycerin when necessary chest pain Monitor Hypertension, stable improved Continue patient on home dose of hydrochlorothiazide and metoprolol. Continue on increased lisinopril dose to 20mg daily. Monitor BP Diabetes mellitus Continue patient on home dose of metformin 500 mg twice a day blood sugar not recorded for this am Accu-Chek Insulin sliding scale hgbA1c 6.1 Diabetic diet COPD, not in acute exacerbation Albuterol inhaler when necessary Monitor respiratory status Neuropathy Continue patient on home dose of gabapentin and amitriptyline Anemia, microcytic hypochromic trending downward iron studies ordered stool Hemoccult am labs to monitor trend, Ongoing tobaccoism Encourage cessation/counseling Vitamin D deficiency Less vitamin d level of the system is 11.2 12/12/12 Vitamin D level normal at 31.2 H/O breast cancer 2007, stable GERD Pepcid 20mg BID DVT prophylaxis Eliquis 2.5 mg twice a day Discussed with patient, nursing staff and Dr. Patel Discharge Planning Pt to be discharged home with home health care. Tay Qiu Jr. Jan 29, 2017 12:03
== END 2017-01-29 11:59 | disposition home health service (06) | DRG 470 ==
LOC: HSDI 01-25 05:38 → N06A 01-25 13:17
PROVIDERS: ADMIT Surgery; ATTEND Surgery
PROC: 0SRD0J9 Replacement of Left Knee Joint with Synthetic Substitute, Cemented, Open Approach (ICD-10-PCS; principal; 2017-01-25 07:40)
DX: M17.12 Unilateral primary osteoarthritis, left knee (principal); E11.40 Type 2 diabetes mellitus with diabetic neuropathy, unspecified; N39.0 Urinary tract infection, site not specified; I10 Essential (primary) hypertension; F17.210 Nicotine dependence, cigarettes, uncomplicated; D50.9 Iron deficiency anemia, unspecified; B96.20 Unspecified Escherichia coli [E. coli] as the cause of diseases classified elsewhere; R19.7 Diarrhea, unspecified; E55.9 Vitamin D deficiency, unspecified; F32.9 Major depressive disorder, single episode, unspecified; G89.29 Other chronic pain; R00.0 Tachycardia, unspecified; I25.10 Atherosclerotic heart disease of native coronary artery without angina pectoris; J44.9 Chronic obstructive pulmonary disease, unspecified; K21.9 Gastro-esophageal reflux disease without esophagitis; M51.36 Other intervertebral disc degeneration, lumbar region; I25.2 Old myocardial infarction; Z95.5 Presence of coronary angioplasty implant and graft; Z79.84 Long term (current) use of oral hypoglycemic drugs; Z85.3 Personal history of malignant neoplasm of breast
CPT/HCPCS: 71010; 73560; 80048; 80053; 81001; 82306; 82728; 82948; 83036; 83540; 83550; 85014; 85018; 85025; 85027; 86850; 86900; 86901; 87077; 87086; 87186; 94150; 94667; 94668; C1776; C9290; J0131; J1170; J1580; J1885; J2250; J2270; J2370; J2405; J3370; J7120; L1830

== ENCOUNTER 2017-02-08 14:50 | Emergency (ER) | payer MEDICARE, MEDICAID ==
[~2017-02-08] VITALS: Ht 175.3 cm; Wt 82.0 kg
[~2017-02-08 14:50] MED LIST changes: +ADJUSTABLE COMM1 MIS; +AMIT25TA9 PO; +ASPI81TA19 PO; +CPMMACHINE; -IBUP800T23 PO; +LACTTAB8 PO; +SULF1TAB23 PO; +WALKER WHEELS/F1 MIS
[2017-02-08 14:52] VITALS: BP 111/56; PULSE 85; RESP 20; TEMP 98.8; O2SAT 97
--- NOTE | 2017-02-08 15:44 | PD ---
Physical Exam Date Seen by Provider: Feb 08, 2017 Time Seen by Provider: 15:43 Narrative 57 yr old female reports having low blood pressures, systolic in the 80s causing her to feel like she will pass out. She called her PCP and was told to come to the ED. She is awaiting bed placement. Data Data Last Documented VS Vital Signs Date Time Temp Pulse Resp B/P (MAP) Pulse Ox O2 Delivery O2 Flow Rate FiO2 02/08/17 14:52 98.8 85 20 111/56 (74) 97 Room Air [facility] Medical Record Reviewed: Yes Supervised Visit with SIL: No Condition: Stable Sonia Rodriges Feb 08, 2017 15:44
== END 2017-02-08 15:49 | disposition left against medical advice (07) ==
LOC: NED 14:50
DX: I95.9 Hypotension, unspecified (principal)
CPT/HCPCS: 99281

== ENCOUNTER → 2017-07-24 | Outpatient (CLI) | payer MEDICARE, MEDICAID ==
[~2017-07-24] MED LIST changes: +ALLO300T2 PO; -ATOR1TAB18 PO; +ATOR80TA45 PO; +CYCL10TA PO; -CYCL1TAB29 PO; +HYDR-3583 PO; +ISOS30TA3 PO
--- NOTE | 2017-07-24 10:05 | RADRPT ---
EXAM DATE/TIME: 07/24/2017 09:51 [facility] COMPARISON: No previous studies available for comparison. INDICATIONS : Evaluate for pneumonia, pneumothorax, or communicable disease. Pre op for neck surgery. MEDICAL HISTORY : Carcinoma, breast. Chronic obstructive pulmonary disease. Cardiovascular disease. Diabetes. Hypertens ion. SURGICAL HISTORY : Hysterectomy. Left breast lumpectomy. ENCOUNTER: Initial ACUITY: 1 day PAIN SCORE: 0/10 LOCATION: Bilateral chest FINDINGS: PA and lateral views of the chest demonstrate the lungs to be symmetrically aerated without evidence of mass, infiltrate or effusion. The cardiomediastinal contours are unremarkable. Degenerative mack ges thoracic spine. CONCLUSION: No acute disease. Blair Dinh MD FACR on July 24, 2017 at 10:02 Board Certified Radiologist. This report was verified electronically.
[2017-07-24 10:12] LABS: PROTHROMBIN TIME - PATIENT 9.9 SEC (9.8-11.6)
[2017-07-24 10:12] LABS: BACTERIA, URINE MANY /hpf; BILIRUBIN, URINE NEG (NEG); BLOOD, URINE NEG (NEG); GLUCOSE,URINE NEG (NEG); KETONE, URINE NEG (NEG); NITRITE,URINE POS (NEG); SQUAMOUS EPITHELIAL CELL URINE 1 /hpf (0-5); URINE COLOR YELLOW (YELLW/STRAW); URINE LEUKOCYTE ESTERASE LARGE (NEG); WHITE BLOOD CELL CLUMPS RARE
[2017-07-24 10:23] LABS: BASOPHIL % 0.4 % (0.0-2.0); EOSINOPHIL # 0.3 TH/MM3 (0-0.4); EOSINOPHIL % 3.4 % (0.0-4.0); HEMATOCRIT 33.7 % (35.0-46.0); HEMOGLOBIN 10.9 GM/DL (11.6-15.3); LYMPH % 19.3 % (9.0-44.0); LYMPHOCYTE # 1.9 TH/MM3 (1.0-4.8); MEAN CELL VOLUME 76.9 FL (80.0-100.0); MEAN CORPUSCULAR HEMOGLOBIN 24.8 PG (27.0-34.0); MEAN CORPUSCULAR HGB CONC 32.3 % (32.0-36.0); MEAN PLATELET VOLUME 7.1 FL (7.0-11.0); MONO % 6.9 % (0.0-8.0); MONOCYTE # 0.7 TH/MM3 (0-0.9); PLATELET COUNT 339 TH/MM3 (150-450); RED BLOOD COUNT 4.38 MIL/MM3 (4.00-5.30); RED CELL DISTRIBUTION WIDTH 15.4 % (11.6-17.2)
[2017-07-24 10:50] LABS: ALBUMIN 3.9 GM/DL (3.4-5.0); ALKALINE PHOSPHATASE 109 U/L (45-117); ALT (GPT) 12 U/L (10-53); AST (GOT) 12 U/L (15-37); BICARBONATE 28.9 MEQ/L (21.0-32.0); BLOOD UREA NITROGEN 5 MG/DL (7-18); CALCIUM 9.7 MG/DL (8.5-10.1); CHLORIDE 98 MEQ/L (98-107); CREATININE 0.93 MG/DL (0.50-1.00); GLOMERULAR FILTRATION RATE 75 ML/MIN (>89); GLUCOSE,FASTING 104 MG/DL (74-99); SODIUM (NA) 134 MEQ/L (136-145); TOTAL BILIRUBIN ADULT 0.3 MG/DL (0.2-1.0); TOTAL PROTEIN 7.2 GM/DL (6.4-8.2)
== END ==
LOC: CPRE 08:54
PROVIDERS: ATTEND Neurological Surgery
DX: Z01.812 Encounter for preprocedural laboratory examination (principal); Z01.811 Encounter for preprocedural respiratory examination; M48.061 Spinal stenosis, lumbar region without neurogenic claudication; M48.02 Spinal stenosis, cervical region; B96.20 Unspecified Escherichia coli [E. coli] as the cause of diseases classified elsewhere
CPT/HCPCS: 36415; 71046; 80053; 81001; 85025; 85610; 85730; 87077; 87086; 87186; 87640; 87641

== ENCOUNTER 2017-08-02 05:56 | Observation (INO) | payer MEDICARE, MEDICAID ==
[~2017-08-02] VITALS: Ht 175.3 cm; Wt 81.5 kg
[~2017-08-02 05:56] MED LIST changes: -ALLO300T2 PO; -HYDR-3583 PO; -ISOS30TA3 PO
[2017-08-02] MEDS ORDERED: LACTATED RINGER'S 1000 ML IV PRN (06:30)
[2017-08-02] MEDS ORDERED: VANCOMYCIN 1 GM/200 ML PREMIX IV SCH (06:30)
[2017-08-02] MEDS ORDERED: METOPROLOL TARTRATE 25 MG TAB PO PRN (06:30)
[2017-08-02] MEDS ORDERED: POVIDONE IODINE 5% (ANTISEPSIS KIT) 4 APPLICATIONS EACH NARE PRN (06:30)
[2017-08-02] MEDS ORDERED: SODIUM CHLORID 0.9% 500 ML IV PRN (06:30)
[2017-08-02] MEDS ORDERED: SODIUM CHLOR 0.9% 1000 ML INJ 1,000 ML IV SCH (06:30)
[2017-08-02] MEDS ORDERED: CHLORHEXIDINE GLUCONATE 2 % 1 PACK (2 CLOTHS) TOPICAL PRN (06:30)
[2017-08-02] MEDS ORDERED: INSULIN HUMAN REGULAR 1,000 UNITS/10 ML VIAL SQ PRN (06:30)
[2017-08-02] MEDS ORDERED: ISOS30TA3 PO ×2 (06:38)
[2017-08-02] MEDS ORDERED: ALLO300T2 PO ×2 (06:40)
[2017-08-02] MEDS ORDERED: METF500T PO ×2 (06:41)
[2017-08-02] MEDS ORDERED: CYCL10TA PO ×2 (06:44)
[2017-08-02 06:59] LABS: BILIRUBIN, URINE NEG (NEG); BLOOD, URINE NEG (NEG); GLUCOSE,URINE NEG (NEG); KETONE, URINE NEG (NEG); MUCUS URINE FEW /lpf (OCC); NITRITE,URINE NEG (NEG); SQUAMOUS EPITHELIAL CELL URINE <1 /hpf (0-5); URINE COLOR YELLOW (YELLW/STRAW); URINE LEUKOCYTE ESTERASE NEG (NEG)
[2017-08-02] MEDS ORDERED: THROMBIN (TOPICAL) 5,000 UNIT VIAL ONE (07:07)
[2017-08-02] MEDS ORDERED: ACETAMINOPHEN 1000 MG/100 ML 100 ML IV ONE (07:07)
[2017-08-02] MEDS ORDERED: GENTAMICIN SULFATE 80 MG/2 ML VIAL ONE (07:08)
[2017-08-02] MEDS ORDERED: ARTIFICIAL TEARS OPTH OINT 3.5 APPLIC/3.5 GM TUBO ONE (07:08)
[2017-08-02] MEDS ORDERED: GELFOAM SIZE 100 ONE (07:08)
[2017-08-02] MEDS ORDERED: PROPOFOL 500 MG/50 ML INJ 200 ML ONE (07:09)
[2017-08-02] MEDS ORDERED: VANCOMYCIN HCL 1000 MG VIAL IV ONE (08:15)
[2017-08-02] MEDS ORDERED: DO NOT ADM ANY ANTICOAGULANT DRUGS PRN (11:20)
[2017-08-02] MEDS ORDERED: MIDAZOLAM HCL 2 MG/2 ML VIAL ONE (11:43)
[2017-08-02] MEDS ORDERED: cloNIDine HCL 0.1 MG TAB PO/NG PRN (11:45)
[2017-08-02] MEDS ORDERED: GLUCAGON 1 MG/ML VIAL OTHER PRN (11:45)
[2017-08-02] MEDS ORDERED: CYCLOBENZAPRINE HCL 10 MG TAB PO PRN (11:45)
[2017-08-02] MEDS ORDERED: DEXTROSE 50% IN WATER 50 ML VIAL(D50) IV PUSH PRN (11:45)
[2017-08-02] MEDS ORDERED: ACETAMINOPHEN 325 MG TAB PO PRN (11:45)
[2017-08-02] MEDS ORDERED: ONDANSETRON HCL 4 MG/2 ML VIAL IV PUSH PRN (11:45)
[2017-08-02] MEDS ORDERED: ACETAMINOPHEN/HYDROcodone 325 MG/10 MG TAB PO PRN (11:45)
[2017-08-02] MEDS ORDERED: RESP: ALBUTEROL 2.5 MG/3 ML NEB (PRN) INH (11:45)
[2017-08-02] MEDS ORDERED: MORPHINE SULFATE 4 MG/ML INJ IV PUSH PRN ×2 (11:45)
[2017-08-02] MEDS ORDERED: MAGNESIUM HYDROXIDE SUSP 30 ML CUP PO PRN (11:45)
[2017-08-02] MEDS ORDERED: MENTHOL LOZENGE BUCCAL PRN (11:45)
[2017-08-02] MEDS ORDERED: *morphine SULFATE 4 MG/ML PERIprocedure ONLY ONE (11:47)
--- NOTE | 2017-08-02 11:47 | PD.OP ---
Operative Report Date of Surgery: Aug 02, 2017 Preoperative Diagnosis: Cervical spinal stenosis Postoperative Diagnosis: Cervical spinal stenosis Procedure: C5-6, C6-7 anterior cervical discectomy, interbody arthrodhesis using PEEK cage with autologous bone graft, C5-6-7 instrumental fixation using simplicity plate and screws Anesthesia: general Surgeon: Bayron Hinton Zone Maintenance Technician(s): Treasure Pablo Operation and Findings: INDICATIONS FOR THE PROCEDURE Ms Rea is a 57 year-old female who presented with intractable neck pain and clinical evidence of C6 and C7 upper extremity radiculopathy. She was found to have significant spondylosis with degenerative disk disease and stenosis. He has failed maximum nonsurgical management including multiple modalities of conservative treatment as well as pain management interventions by an interventional pain specialist. A surgical decompression and arthrodhesis were indicated. The inth-of-omxt details of the procedure, indications, alternatives, risks and potential complications were fully discussed with the patient. The patient fully understood. All The questions were answered. No guarantees were given. The patient voiced requesting the procedure and provided informed consents. The patient was offered the alternative of delaying the procedure and continuing with nonsurgical management. DETAILS OF THE SURGICAL PROCEDURE After the induction of general anesthesia, endotracheal intubation was performed. A Morales catheter, bilateral KENAN hose, and sequential compression devices were placed and kept throughout the procedure. Placement of electrodes for neurophysiological monitoring of the somato sensorial evoked potentials. motor evoked potentials, and EMG as well as laryngeal nerve monitoring was achieved. The patient was positioned supine on a Mitch table with the head over a gel doughnut. All pressure points were carefully padded with eggcrate mattress. The eyes were tapped shut after ointment was applied by the anesthesiologist to prevent corneal abrasion. A Nat hugger was placed over the exposed lower body to maintain control of the core body temperature. The electrophysiological team placed the needles and electrodes in their proper location and baseline SSEP's and motor evoked potentials were registered prior and after positioning and endotracheal intubation. The anterior cervical region was prepped and draped in the usual sterile fashion. A localizing x-ray was performed with a C-arm. The surgical procedure was performed in several steps as follow: SURGICAL APPROACH A skin incision was made along the inferior cervical crease with a #10 blade. The dissection was carried out through the platysma exposing the sternocleidomastoid muscle. The cervical spine was approached following the fascial layers of the neck just medial to the anterior border of the sternocleidomastoid and carotid sheath by a combination of sharp and dull dissection. The omohyoid muscle was identified and carefully dissected laterally and the deep cervical fascia was carefully opened. The longus colli muscles were retracted to each side of the midline. A marker was placed at the disc space C5-6 and a cross-table lateral x-ray performed with a C-arm. SURGICAL DECOMPRESSION In order to decompress the anterior surface of the spinal cord it was necessary to preform a microsurgical resection of the disk at C5-6 and C6-7. At this point in the procedure the operating microscope was draped in the usual sterile fashion and brought to the field. The rest of the surgical procedure was performed using microdissection technique with the exception of the closure. Under the operative microscopic, a self-retaining retractor was placed underneath the longus colli muscle. Anterior osteophite spurs werte carefully removed with the Leksell. The annulus at C5-6 and C6-7 were incised with a #15 blade and microdiscectomy was then carefully carried out using angled curets and pituitary forceps. There were osteophitic/disk complexes mass effect and compression of the dural sac and nerve roots. The posterior longitudinal ligament was then elevated with an angled curet and incised with a 15 bladed knife. A careful resection of the posterior longitudinal ligament was carried out using a thin footplate 2 mm Kerrison. A nerve hook was used to assess the epidural space behind the vertebral bodies C5, C6, and C7 in search for residual disk fragments. The margins of the posterior endplates at C5-6 and C6- 7 were carefully drilled and undercut with a TPS drill under high magnification. The decompression was then carried out laterally, and a bilateral foraminotomy was performed with a 2mm thin foot Kerrison. Then the vertebral bodies above and below the disk space were undercut using a 2 mm thin foot Kerrison. The epidural space was the systematically assessed with a nerve hook in search for disk fragments of scarr tissue. An excellent decompression was achieved in both, the dural sac and bilateral exiting nerve roots. The incision was then irrigated with a large amount of antibiotic solution INTERBODY ARTHRODHESIS In order to avoid collapse of the disk space which would result in bilateral foraminal stenosis, and to increase the chances of a successful fusion, it was necessary to place an interbody cage filled with autologous bone. At this point of the procedure, the superior and inferior endplates were then evenly decorticated with a TPS drill. The use of a drill in combination with a curette allowed me to systematically remove the cartilaginous endplates, exposing healthy bone for the interbody arthrodesis. Fourteen millimeters distraction pins were then placed at the vertebral bodies adjacent to the disk space, and gentle distraction was applied. The size of the interbody cage was then assessed using different size spacers, and a rasp was used to ensure no residual cartilage. A PEEK cage of the appropriate size was selected, and the interbody arthrodesis was then preformed by carefully impacting a PEEK cage filled with autologous bone graft to the disc spaces C5-6 and C6-7. An excellent position of the cage was achieved. This was was confirmed anatomically by feeling the space posterior to the implant and distance to the anterior surface of the dural sac. Radiological confirmation of the position was performed with a cross lateral xray performed with the C-arm. INTERNAL INSTRUMENTAL FIXATION Once that the interbody device was in an appropriate position, it was necessary to stabilize the spine with anterior instrumentation. Anterior instrumentation has demonstrated to increase the rate of fusion, accelerate the patient's recovery, and decrease the rate of failed interbody grafts. At this point of the procedure, the distance between the vertebral bodies was carefully measures, and a Simplicity plate was brought to the field and presented in front of the vertebral bodies C5, C6, and C7. Performance Test Consultant holes were then drilled using the TPS drill, and the plate was then secured to the spine using self-drilling, self-tapping screws. Initially, the inferior right screw was inserted, followed by placement of the contralateral upper screw. The remanding screws were sequentially placed in a contra-lateral fashion. A proper purchase was achieved with all screws and the position of the cage, plate and screws, and alignment of the spine was assessed anatomically by direct visualization, and radiologically by performing a cross lateral xray of the cervical spine with the C-arm. CLOSURE The incision was irrigated with several liters of antibiotic solution. Hemostasis was achieved with a bipolar. The screws were locked to prevent backing out. A 7 mm Mitch-Barrera drain was left in the prevertebral space and externalized through a separate stab incision. The incision was then closed in layers. 3-0 Vicryl with interrupted sutures was used to close the platysma and subcutaneous tissue. The skin was closed with 4-0 running subcuticular Vicryl and glue was applied to the skin. The drain was secured with a 3-0 nylon. At the end of the procedure the sponge, needle and instrument counts were all correct. The estimated blood loss was less than 80 cc. No blood transfusion was given. No intraoperative complications occurred. The patient received prophylactic antibiotics. The patient was then extubated and transferred to the recovery room in stable condition. Bayron Hinton MD Aug 02, 2017 11:47
[2017-08-02] MEDS ORDERED: NS 500 ML (EXCEL BAG) INJ 500 ML IV ONE (12:00)
[2017-08-02] MEDS ORDERED: GLYCOPYRROLATE 1 MG/5 ML SYRINGE IV PUSH ONE (12:00)
[2017-08-02] MEDS ORDERED: LACTATED RINGER'S 1000 ML INJ 1,000 ML IV ONE (12:00)
[2017-08-02] MEDS ORDERED: LIDOCAINE HCL 1% PF 5 ML SYRINGE OTHER ONE (12:00)
[2017-08-02] MEDS ORDERED: ROCURONIUM INJ 50 MG/5 ML SYRINGE IV PUSH ONE (12:00)
[2017-08-02] MEDS ORDERED: PROPOFOL 200 MG/20 ML AMP IV ONE (12:00)
[2017-08-02] MEDS ORDERED: ONDANSETRON HCL 4 MG/2 ML VIAL IV ONE (12:00)
[2017-08-02] MEDS ORDERED: DEXAMETHASONE SOD PHOS 4 MG/ML VIAL IV ONE (12:00)
--- NOTE | 2017-08-02 13:22 | HHI.DCPOC ---
Discharge Care Plan Diagnosis: (1) Status post cervical arthrodesis Goals to Promote Your Health * To prevent worsening of your condition and complications * To maintain your health at the optimal level Directions to Meet Your Goals Take your medications as prescribed Follow your dietary instruction Follow activity as directed Keep your appointments as scheduled Take your immunizations and boosters as scheduled If your symptoms worsen call your PCP, if no PCP go to Urgent Care Center or Emergency Room Smoking is Dangerous to Your Health. Avoid second hand smoke Call the 24-hour hour crisis hotline for domestic abuse at Luna Collins Aug 02, 2017 13:22
[2017-08-02 13:30] VITALS: BP 132/72; PULSE 85; RESP 16; TEMP 98.4; O2SAT 100
[2017-08-02] MEDS: INSULIN ASPART SUPPLEMENTAL SCALE SQ SCH ×3 (13:30→21:44)
[2017-08-02] MEDS: DEXAMETHASONE SOD PHOS 4 MG/ML VIAL IV PUSH SCH ×2 (14:36→21:43)
[2017-08-02] MEDS: SODIUM CHLOR 0.9% 1000 ML INJ 1,000 ML IV SCH ×2 (14:41→21:44)
[2017-08-02] MEDS ORDERED: HYDR-3583 PO (15:19)
--- NOTE | 2017-08-02 15:19 | RADRPT ---
EXAM DATE/TIME: 08/02/2017 09:28 [facility] COMPARISON: No previous studies available for comparison. INDICATIONS : C5-6, C6-7 Anterior cervical disc fusion. MEDICAL HISTORY : Hypertension. Diabetes mellitus type II. Cardiovascular disease. Carcinoma, breast. Chronic obstr uctive pulmonary disease. SURGICAL HISTORY : Hysterectomy. Left breast lumpectomy. ENCOUNTER: Initial ACUITY: 1 day PAIN SCORE: Non-responsive. LOCATION: Cervical spine. FINDINGS: 3 magnified C-arm spot views are centered over the cervical spine and show a 3 level anterior fusion plate with intervening bone graft devices. This involves C5-C6 and C6-C7. Large bridging anterior ost eophytes are noted at C3-C4 and C4-C5. Paraspinal soft tissues are obscured by the endotracheal tube. A catheter is coiled within the region of the oropharynx which is felt to relate to the esophageal t emperature probe. CONCLUSION: C5-C7 anterior fusion. Aly Yu Jr., MD on August 02, 2017 at 15:17 Board Certified Radiologist. This report was verified electronically.
[2017-08-02 16:00] VITALS: BP 139/81; PULSE 95; RESP 16; TEMP 97; O2SAT 96
[2017-08-02 19:20] VITALS: O2SAT 96
[2017-08-02 20:05] VITALS: BP 140/90; PULSE 92; RESP 17; TEMP 96.6; O2SAT 100
[2017-08-02] MEDS ORDERED: NON-FORMULARY DRUG (Ranitidine (Zantac) 150 MG) PO SCH (21:00)
[2017-08-02] MEDS ORDERED: AMITRIPTYLINE HCL 25 MG TAB PO SCH (21:00)
[2017-08-02] MEDS: DOCUSATE SODIUM 100 MG CAP PO SCH (21:42)
[2017-08-02] MEDS: VANCOMYCIN INJ 1,000 MG in SODIUM CHLOR 0.9% 250 ML INJ 250 ML IV SCH (21:42)
[2017-08-02] MEDS: METOPROLOL TARTRATE 50 MG TAB PO SCH (21:43)
[2017-08-02] MEDS: ACETAMINOPHEN/HYDROcodone 325 MG/10 MG TAB PO PRN (21:43)
[2017-08-02 23:56] VITALS: BP 139/88; PULSE 86; RESP 18; TEMP 98.4; O2SAT 97
[2017-08-03] MEDS: ACETAMINOPHEN/HYDROcodone 325 MG/10 MG TAB PO PRN ×2 (03:54→09:56)
[2017-08-03] MEDS: DEXAMETHASONE SOD PHOS 4 MG/ML VIAL IV PUSH SCH ×2 (03:55→09:43)
[2017-08-03 04:00] VITALS: BP 143/90; PULSE 85; RESP 16; TEMP 98.9; O2SAT 97
[2017-08-03 08:00] VITALS: BP 147/78; PULSE 79; RESP 17; TEMP 97.9; O2SAT 95
[2017-08-03] MEDS: INSULIN ASPART SUPPLEMENTAL SCALE SQ SCH (08:00)
[2017-08-03] MEDS ORDERED: ALLOPURINOL 300 MG TAB PO SCH (09:00)
[2017-08-03] MEDS: SODIUM CHLOR 0.9% 1000 ML INJ 1,000 ML IV SCH (09:00)
[2017-08-03] MEDS ORDERED: HYDROCHLOROTHIAZIDE 12.5 MG CAP PO SCH (09:00)
[2017-08-03] MEDS ORDERED: ISOSORBIDE MONONITRATE 30 MG CR TAB (IMDUR) PO SCH (09:00)
[2017-08-03] MEDS ORDERED: LISINOPRIL 10 MG TAB PO SCH (09:00)
[2017-08-03] MEDS ORDERED: PANTOPRAZOLE SOD 40 MG DELAYED RELEASE TAB PO SCH (09:00)
[2017-08-03] MEDS ORDERED: ATORVASTATIN 80 MG TAB PO SCH (09:00)
[2017-08-03] MEDS: VANCOMYCIN INJ 1,000 MG in SODIUM CHLOR 0.9% 250 ML INJ 250 ML IV SCH (09:43)
[2017-08-03] MEDS: METOPROLOL TARTRATE 50 MG TAB PO SCH (09:44)
[2017-08-03] MEDS: DOCUSATE SODIUM 100 MG CAP PO SCH (09:44)
[2017-08-03 11:43] VITALS: BP 154/89; PULSE 85; RESP 18; TEMP 98.6; O2SAT 100
--- NOTE | 2017-08-03 12:03 | HHI.NSPN ---
History Chief Complaint: Incisional discomfort. Interval History Pt s/p C5/C6 and C6/C7 anterior cervical fusion with plate placement. She states she is doing well. No radiculopathy or paresthesias in UEs. Mild incisional pain. Pt requesting discharge home. Very happy with the results. Review of Systems General: Negative for: fever, chills, insomnia Respiratory: Negative for: shortness of breath, cough, sputum Cardiovascular: Negative for: chest pain Gastrointestinal: Negative for: nausea, vomitting, diarrhea, constipation Exam Results Vital Signs Date Time Temp Pulse Resp B/P (MAP) Pulse Ox O2 Delivery O2 Flow Rate FiO2 08/03/17 11:43 98.6 85 18 154/89 (110) 100 08/03/17 07:30 Room Air 08/03/17 00:00 1.00 Intake and Output 08/03/17 08/03/17 08/04/17 08:00 16:00 00:00 Intake Total 1215 ml Output Total 40 ml Balance 1175 ml Physical Examination General: Pt awake and alert. Sitting up in chair in NAD. Resp: CTA bilaterally Heart: NSR no murmurs Abd: Soft positive bs Skin: Incision clean and dry. No signs of infection. VASU drain in place. Muscle: Moves all 4 extremities well. Neuro: Pt awake and alert. Follows commands well. Speech clear and appropriate. Lab, Micro, Other Results Last Impressions Cervical Spine X-Ray 08/02/17 0000 Signed Impressions: Service Date/Time: Wednesday, August 02, 2017 09:28 - CONCLUSION: C5-C7 anterior fusion. Aly Yu Jr., MD Medical Decision Making Impression and Plan A: 57 y/o FM s/p C5/C6 and C6/C7 anterior cervical fusion P: VASU d/c'd. steri strip placed. Discharge home. Rah De Souza Aug 03, 2017 12:03 pm
--- NOTE | 2017-08-05 13:37 | HHI.DS ---
Discharge Summary Admission Date Aug 02, 2017 at 11:46 Discharge Date: Aug 03, 2017 Admitting Diagnosis s/p ACDF (1) Status post cervical arthrodesis ICD Code: Z98.1 - Arthrodesis status Brief History Ms Rea is a 57 year-old female who presented with intractable neck pain and clinical evidence of C6 and C7 upper extremity radiculopathy. She was found to have significant spondylosis with degenerative disk disease and stenosis. He has failed maximum nonsurgical management including multiple modalities of conservative treatment as well as pain management interventions by an interventional pain specialist. A surgical decompression and arthrodesis were indicated. Imaging Last Impressions Cervical Spine X-Ray 08/02/17 0000 Signed Impressions: Service Date/Time: Wednesday, August 02, 2017 09:28 - CONCLUSION: C5-C7 anterior fusion. Aly Yu Jr., MD Hospital Course Ms. Rea underwent C5-6, C6-7 anterior cervical discectomy, interbody arthrodesis using PEEK cage with autologous bone graft, C5-6-7 instrumental fixation using simplicity plate and screws on Aug 02, 2017 for Cervical spinal stenosis. She was discharged home in stable conditions. Pt Condition on Discharge: Stable Discharge Disposition: Discharge Home Discharge Instructions DIET: Follow Instructions for: Diabetic Diet ACTIVITIES You can perform: Weight Bearing As Rebel ADDITIONAL Activity Instructio: Avoid strenuous activities, heavy lifting over 5 lbs, overhead activities, repetitive bending, twisting, pushing, pulling or any activities which might result in stress over the spine. Avoid situation that will put at risk for falls. Use assistive device as needed for walking. Wear cervical collar at all times, may remove only with meals. New Medications: Hydrocodone-Acetaminophen (Hydrocodone-Acetaminophen) 10-325 mg Tab 1 TAB PO Q8HR PRN for PAIN, #90 TAB 0 Refills Continued Medications: Allopurinol (Allopurinol) 300 Mg Tab 300 MG PO DAILY for Gout, #30 TAB 0 Refills Amitriptyline (Amitriptyline) 25 Mg Tab 25 MG PO HS for Insomnia, TAB Aspirin DR (Aspir-Low) 81 Mg Tabdr 1 TAB PO DAILY Atorvastatin (Atorvastatin) 80 Mg Tab 80 MG PO DAILY for Cholesterol Management, TAB Cyclobenzaprine (Flexeril) 10 Mg Tab 10 MG PO DAILY for Muscle Spasm, #90 TAB 0 Refills Gabapentin (Gabapentin) 800 Mg Tab 800 MG PO DIRECTED PRN for PAIN 1 TO 10 AND/OR AGITATION, TAB Hydrochlorothiazide (Hydrochlorothiazide) 12.5 Mg Tab 12.5 MG PO DAILY, TAB Isosorbide Mononitrate ER (Isosorbide Mononitrate ER) 30 Mg Leah 30 MG PO DAILY for Prevent Chest Pain, #30 TAB 0 Refills Lisinopril (Lisinopril) 10 Mg Tab 10 MG PO DAILY, TAB Metformin (Metformin) 500 Mg Tab 500 MG PO BIDPC for Blood Sugar Management, #60 TAB 0 Refills Metoprolol Tartrate (Metoprolol Tartrate) 50 Mg Tab 50 MG PO BID, TAB Nitroglycerin SL (Nitroglycerin SL) 0.4 Mg Subl 0.4 MG SL DIRECTED PRN for CHEST PAIN, TAB.SL ONE TABLET UNDER THE TONGUE NEEDED FOR CHEST PAIN, MAY REPEAT EVERY FIVE MINUTES FOR A TOTAL OF 3 DOSES OR CALL 911 IF NO RELIEF Ranitidine (Zantac) 150 Mg Tab 150 MG PO BID, TAB Luna Collins Aug 05, 2017 13:37
== END 2017-08-03 14:56 | disposition home or self-care (01) ==
LOC: HSDC 05:56 → HSDI 11:46 → N06B 13:15
PROVIDERS: ADMIT Neurological Surgery; ATTEND Neurological Surgery
DX: M48.02 Spinal stenosis, cervical region (principal); M54.10 Radiculopathy, site unspecified; M47.9 Spondylosis, unspecified; E11.9 Type 2 diabetes mellitus without complications; I10 Essential (primary) hypertension; I25.10 Atherosclerotic heart disease of native coronary artery without angina pectoris; Z95.5 Presence of coronary angioplasty implant and graft; Z90.710 Acquired absence of both cervix and uterus; Z79.84 Long term (current) use of oral hypoglycemic drugs
CPT/HCPCS: 00600; 20936; 22551; 22552; 22845; 22853; 72040; 76000; 81001; 82948; 94150; 96361; 96365; 96372; 96375; 96376; 97161; C1713; G0378; G8987; G8988; J0131; J1100; J1580; J1815; J2250; J2270; J2405; J3010; J3370; J7030; J7040; J7050; J7120; L0150; L0172

== ENCOUNTER 2017-11-02 03:06 | Inpatient (IN) | payer MEDICARE, MEDICAID ==
[2017-11-02] VITALS (17 sets, daily range): BP systolic 95–176; BP diastolic 49–89; PULSE 78–94; RESP 12–20; TEMP 97.4–98.7; O2SAT 97–100
[~2017-11-02] VITALS: Ht 170.2 cm; Wt 84.1 kg
[~2017-11-02 03:06] MED LIST changes: -ADJUSTABLE COMM1 MIS; +ALLO300T2 PO; -CPMMACHINE; +HYDR-3583 PO; +ISOS30TA3 PO; -LACTTAB8 PO; -SULF1TAB23 PO; -VENTAER INH; -WALKER WHEELS/F1 MIS
[2017-11-02 03:45] LABS: AUTOMATED NEUTROPHIL # 3.8 TH/MM3 (1.8-7.7); BASOPHIL # 0.1 TH/MM3 (0-0.2); BASOPHIL % 0.6 % (0.0-2.0); EOSINOPHIL # 0.4 TH/MM3 (0-0.4); EOSINOPHIL % 4.6 % (0.0-4.0); HEMATOCRIT 32.1 % (35.0-46.0); HEMOGLOBIN 10.2 GM/DL (11.6-15.3); LYMPH % 44.2 % (9.0-44.0); LYMPHOCYTE # 3.8 TH/MM3 (1.0-4.8); MEAN CELL VOLUME 76.2 FL (80.0-100.0); MEAN CORPUSCULAR HEMOGLOBIN 24.3 PG (27.0-34.0); MEAN CORPUSCULAR HGB CONC 31.9 % (32.0-36.0); MEAN PLATELET VOLUME 7.3 FL (7.0-11.0); MONO % 7.3 % (0.0-8.0); MONOCYTE # 0.6 TH/MM3 (0-0.9); NEUT % 43.3 % (16.0-70.0); PLATELET COUNT 310 TH/MM3 (150-450); RED BLOOD COUNT 4.21 MIL/MM3 (4.00-5.30); RED CELL DISTRIBUTION WIDTH 16.5 % (11.6-17.2); WHITE BLOOD COUNT 8.7 TH/MM3 (4.0-11.0)
[2017-11-02 03:49] LABS: PROTHROMBIN TIME - PATIENT 10.2 SEC (9.8-11.6)
[2017-11-02 03:51] LABS: ALBUMIN 3.5 GM/DL (3.4-5.0); ALT (GPT) 16 U/L (10-53); AST (GOT) 21 U/L (15-37); BLOOD UREA NITROGEN 12 MG/DL (7-18); CALCIUM 8.6 MG/DL (8.5-10.1); CHLORIDE 95 MEQ/L (98-107); CREATININE 0.85 MG/DL (0.50-1.00); GLOMERULAR FILTRATION RATE 83 ML/MIN (>89); GLUCOSE,RANDOM 88 MG/DL (74-106); SODIUM (NA) 131 MEQ/L (136-145)
[2017-11-02 03:53] LABS: ALKALINE PHOSPHATASE 113 U/L (45-117); TOTAL BILIRUBIN ADULT 0.2 MG/DL (0.2-1.0); TOTAL PROTEIN 6.7 GM/DL (6.4-8.2)
--- NOTE | 2017-11-02 03:53 | PD ---
HPI . Rectal bleeding Chief Complaint: GI Complaint Time Seen by Provider: 03:13 Travel History International Travel<30 days: No Contact w/Intl Traveler<30days: No Traveled to known affect area: No History of Present Illness HPI pt had bright red blood per rectum today at around 1 AM he felt she was she was having diarrhea. But when she looked down she saw that she had large amount of blood and clots in the toilet bowl it went on for over an hour and then she came to the ER. She has no history of diverticulitis no history of hemorrhoids no history of diverticulitis. No other coagulopathies. She had a colonoscopy 3 years ago that had a polyp that was benign but it was resected and no problems since. She has never had rectal bleeding before she denies excessive diarrhea prior to this. She has pain in her lower quadrant diffuse constant she denies being on any blood thinners she does have diabetes and hypertension. PFSH Past Medical History Hx Anticoagulant Therapy: Yes Arthritis: Yes Asthma: No Autoimmune Disease: No Blood Disorders: No Anxiety: No Depression: Yes Heart Rhythm Problems: Yes (IRREGULAR RHYTHM TACHYCARDIA HISTORY ) Cancer: Yes (left breast 2007) Cardiac Catheterization: Yes Cardiovascular Problems: Yes High Cholesterol: Yes Chemotherapy: No Chest Pain: Yes Congestive Heart Failure: No COPD: Yes Cerebrovascular Accident: No Diabetes: Yes Patient Takes Glucophage: Yes Diminished Hearing: Yes (BILAT hearing aides) Endocrine: Yes GERD: No Glaucoma: No Gout: Yes Genitourinary: Yes (uti) Headaches: Yes Hepatitis: No Hiatal Hernia: No Heparin Induced Thrombocytopen: No Hypertension: Yes Immune Disorder: No Implanted Vascular Access Dvce: No Kidney Stones: No Medical other: Yes (HYPERLIPIDEMIA) Musculoskeletal: Yes ( back and neck problems) Psychiatric: Yes Reproductive: No Respiratory: No Immunizations Current: Yes Migraines: No Myocardial Infarction: Yes Radiation Therapy: Yes Renal Failure: No Seizures: No Sickle Cell Disease: No Sleep Apnea: No Thyroid Disease: No Triglycerides - High: Yes Ulcer: No PNEUMOCCOCAL Vaccine (Year): 1 Menopausal: Yes Past Surgical History Abdominal Surgery: Yes AICD: No Appendectomy: No Arteriovenous Shunt: No Body Medical Devices: x4 cardiac stents hardware in the back Cardiac Surgery: Yes (x4 cardiac stents) Cholecystectomy: No Coronary Artery Bypass Graft: No Coronary Stent: Yes (X4) Ear Surgery: No Endocrine Surgery: No Eye Surgery: Yes (CATARACT BILAT) Genitourinary Surgery: No Gynecologic Surgery: Yes (FIBROID TUMORS FROM UTERUS REMOVED BY LASER, ) Hysterectomy: Yes Insulin Pump: No Joint Replacement: No Neurologic Surgery: Yes (LUMBAR LAMINECTOMY X 2- LUMBAR FUSION) Oral Surgery: Yes (ALL TEETH REMOVED) Pacemaker: No Thoracic Surgery: Yes (left breast lumpectomy) Other Surgery: Yes (LT BREAST LUMPECTOMY, MARGARITA, BACK) Family History Family Myocardial Infarction: Yes Social History Alcohol Use: Yes (occ) Tobacco Use: Yes (occ) Substance Use: No Allergies-Medications (Allergen,Severity, Reaction): Coded Allergies: penicillin G (Unverified Allergy, Severe, ANAPHALAXIS, 11/02/17) Reported Meds & Prescriptions Reported Meds & Active Scripts Active Hydrocodone-Acetaminophen 10-325 mg Tab 1 Tab PO Q8HR PRN Reported Flexeril (Cyclobenzaprine HCl) 10 Mg Tab 10 Mg PO DAILY Metformin (Metformin HCl) 500 Mg Tab 500 Mg PO BIDPC Allopurinol 300 Mg Tab 300 Mg PO DAILY Isosorbide Mononitrate ER (Isosorbide Mononitrate) 30 Mg Leah 30 Mg PO DAILY Aspir-Low (Aspirin) 81 Mg Tabdr 1 Tab PO DAILY Amitriptyline (Amitriptyline HCl) 25 Mg Tab 25 Mg PO HS Metoprolol Tartrate 50 Mg Tab 50 Mg PO BID Hydrochlorothiazide 12.5 Mg Tab 12.5 Mg PO DAILY Zantac (Ranitidine HCl) 150 Mg Tab 150 Mg PO BID Nitroglycerin SL (Nitroglycerin) 0.4 Mg Subl 0.4 Mg SL DIRECTED PRN ONE TABLET UNDER THE TONGUE NEEDED FOR CHEST PAIN, MAY REPEAT EVERY FIVE MINUTES FOR A TOTAL OF 3 DOSES OR CALL 911 IF NO RELIEF Lisinopril 10 Mg Tab 10 Mg PO DAILY Atorvastatin (Atorvastatin Calcium) 80 Mg Tab 80 Mg PO DAILY Gabapentin 800 Mg Tab 800 Mg PO DIRECTED PRN Review of Systems Except as stated in HPI: all other systems reviewed are Neg Gastrointestinal: Positive: Hematochezia, Other (Large amount of blood and blood clots in her stool) Physical Exam Narrative GENERAL: No acute distress however she is holding her abdomen lower curling her legs up as if she is in pain SKIN: Warm and dry. HEAD: Atraumatic. Normocephalic. EYES: Pupils equal and round. No scleral icterus. No injection or drainage. ENT: No nasal bleeding or discharge. Mucous membranes pink and moist. NECK: Trachea midline. No JVD. CARDIOVASCULAR: Regular rate and rhythm. RESPIRATORY: No accessory muscle use. Clear to auscultation. Breath sounds equal bilaterally. GASTROINTESTINAL: Abdomen, tender to the lower diffuse. no epigastric pain MUSCULOSKELETAL: Extremities without clubbing, cyanosis, or edema. No obvious deformities. NEUROLOGICAL: Awake and alert. No obvious cranial nerve deficits. Motor grossly within normal limits. Five out of 5 muscle strength in the arms and legs. Normal speech. PSYCHIATRIC: Appropriate mood and affect; insight and judgment normal. Data Data Last Documented VS Vital Signs Date Time Temp Pulse Resp B/P (MAP) Pulse Ox O2 Delivery O2 Flow Rate FiO2 11/02/17 06:45 83 16 126/68 (87) 100 Room Air 11/02/17 03:12 98.1 Orders Orders Complete Blood Count With Diff (11/02/17 03:22) Comprehensive Metabolic Panel (11/02/17 03:22) Prothrombin Time / Inr (Pt) (11/02/17 03:22) Lipase (11/02/17 03:22) Ns + Kcl 40 Meq Inj (Ns + Kcl 40 Meq Inj (11/02/17 04:00) Morphine Inj (Morphine Inj) (11/02/17 04:30) Pantoprazole Inj (Protonix Inj) (11/02/17 04:30) Bedside Glucose ALANNAH.CSUGAR (11/02/17 06:09) Blood Glucose Goal (Criteria) (11/02/17 06:09) Hypoglycemia 70 Mg/Dl Or < (11/02/17 06:09) Notify Dr: Other (11/02/17 06:09) Dextrose 50% In Shon (Vial) Inj (D50w (Vi (11/02/17 06:15) Glucagon Inj (Glucagon Inj) (11/02/17 06:15) Insulin Aspart Supplemtl Scale (Novolog (11/02/17 08:00) Place In Observation (11/02/17 ) Vital Signs (Adult) Q4H (11/02/17 06:09) Activity Oob Ad Divine (11/02/17 06:09) Intake + Output ALANNAH.QSHIFT (11/02/17 06:09) Sodium Chlor 0.9% 1000 Ml Inj (Ns 1000 M (11/02/17 06:09) Sodium Chloride 0.9% Flush (Ns Flush) (11/02/17 06:15) Sodium Chloride 0.9% Flush (Ns Flush) (11/02/17 09:00) Metoclopramide Inj (Reglan Inj) (11/02/17 06:15) Comprehensive Metabolic Panel (11/03/17 06:00) Complete Blood Count With Diff (11/03/17 06:00) Pharmacologic Contraindication (11/02/17 06:09) Acetaminophen (Tylenol) (11/02/17 06:15) Acetamin-Hydrocod 325-5 Mg ([facility] 5-325 (11/02/17 06:15) Acetamin-Hydrocod 325-10 Mg ([facility] 10-32 (11/02/17 06:15) Docusate Sodium-Senna (Ai-Colace) (11/02/17 09:00) Magnesium Hydroxide Liq (Milk Of Magnesi (11/02/17 06:15) Sennosides (Senokot) (11/02/17 06:15) Bisacodyl Supp (Dulcolax Supp) (11/02/17 06:15) Lactulose Liq (Lactulose Liq) (11/02/17 06:15) Consult Gastroenterology (11/02/17 ) Hgb & Hct (11/02/17 12:00) Admit Order (Ed Use Only) (11/02/17 06:52) Labs Laboratory Tests Test 11/02/17 03:25 White Blood Count 8.7 TH/MM3 Red Blood Count 4.21 MIL/MM3 Hemoglobin 10.2 GM/DL Hematocrit 32.1 % Mean Corpuscular Volume 76.2 FL Mean Corpuscular Hemoglobin 24.3 PG Mean Corpuscular Hemoglobin Concent 31.9 % Red Cell Distribution Width 16.5 % Platelet Count 310 TH/MM3 Mean Platelet Volume 7.3 FL Neutrophils (%) (Auto) 43.3 % Lymphocytes (%) (Auto) 44.2 % Monocytes (%) (Auto) 7.3 % Eosinophils (%) (Auto) 4.6 % Basophils (%) (Auto) 0.6 % Neutrophils # (Auto) 3.8 TH/MM3 Lymphocytes # (Auto) 3.8 TH/MM3 Monocytes # (Auto) 0.6 TH/MM3 Eosinophils # (Auto) 0.4 TH/MM3 Basophils # (Auto) 0.1 TH/MM3 CBC Comment DIFF FINAL Differential Comment Prothrombin Time 10.2 SEC Prothromb Time International Ratio 1.0 RATIO Blood Urea Nitrogen 12 MG/DL Creatinine 0.85 MG/DL Random Glucose 88 MG/DL Total Protein 6.7 GM/DL Albumin 3.5 GM/DL Calcium Level 8.6 MG/DL Alkaline Phosphatase 113 U/L Aspartate Amino Transf (AST/SGOT) 21 U/L Alanine Aminotransferase (ALT/SGPT) 16 U/L Total Bilirubin 0.2 MG/DL Sodium Level 131 MEQ/L Potassium Level 3.0 MEQ/L Chloride Level 95 MEQ/L Carbon Dioxide Level 24.0 MEQ/L Anion Gap 12 MEQ/L Estimat Glomerular Filtration Rate 83 ML/MIN Lipase 105 U/L [facility] Medical Decision Making Medical Screen Exam Complete: Yes Emergency Medical Condition: Yes Medical Record Reviewed: Yes Differential Diagnosis diagnosis is hemorrhoids versus AV malformation versus bleeding polyp versus diverticulosis diverticulitis Narrative Course IV fluid H&H checked admitted for colonoscopy CAT scan done admit for colonscopy Diagnosis Primary Impression: Bright red blood per rectum Iván Schwarz MD November 02, 2017 03:53
[2017-11-02] MEDS: NS + KCL 40 MEQ INJ 1,000 ML IV SCH ×3 (04:15→20:11)
[2017-11-02] MEDS ORDERED: PANTOPRAZOLE SODIUM 40 MG VIAL IV PUSH ONE (04:30)
[2017-11-02] MEDS ORDERED: MORPHINE SULFATE 4 MG/ML INJ IV PUSH ONE (04:30)
[2017-11-02] MEDS ORDERED: SODIUM CHLOR 0.9% 1000 ML INJ 1,000 ML IV SCH (06:09)
[2017-11-02] MEDS ORDERED: GLUCAGON 1 MG/ML VIAL OTHER PRN (06:15)
[2017-11-02] MEDS ORDERED: ACETAMINOPHEN 325 MG TAB PO PRN (06:15)
[2017-11-02] MEDS ORDERED: ACETAMINOPHEN/HYDROcodone 325 MG/5 MG TAB PO PRN (06:15)
[2017-11-02] MEDS ORDERED: LACTULOSE SYRUP 20 GM/30 ML CUP PO PRN (06:15)
[2017-11-02] MEDS ORDERED: METOCLOPRAMIDE HCL 10 MG/2 ML VIAL IV PUSH PRN (06:15)
[2017-11-02] MEDS ORDERED: ACETAMINOPHEN/HYDROcodone 325 MG/10 MG TAB PO PRN (06:15)
[2017-11-02] MEDS ORDERED: BISACODYL 10 MG SUPP RECTAL PRN (06:15)
[2017-11-02] MEDS ORDERED: SENNOSIDES 8.6 MG TAB PO PRN (06:15)
[2017-11-02] MEDS ORDERED: MAGNESIUM HYDROXIDE SUSP 30 ML CUP PO PRN (06:15)
[2017-11-02] MEDS ORDERED: DEXTROSE 50% IN WATER 50 ML VIAL(D50) IV PUSH PRN (06:15)
[2017-11-02] MEDS: INSULIN ASPART SUPPLEMENTAL SCALE SQ SCH ×4 (08:00→21:26)
--- NOTE | 2017-11-02 08:36 | PD ---
Physical Exam Date Seen by Provider: November 02, 2017 Time Seen by Provider: 08:34 Narrative The patient is a 57-year-old female who was initially evaluated by the previous physician and admitted for GI bleed. I was asked to evaluate the patient by nursing staff at 8:30 AM for a swollen tongue. Data Data Last Documented VS Vital Signs Date Time Temp Pulse Resp B/P (MAP) Pulse Ox O2 Delivery O2 Flow Rate FiO2 11/02/17 06:45 83 16 126/68 (87) 100 Room Air 11/02/17 03:12 98.1 Orders Orders Complete Blood Count With Diff (11/02/17 03:22) Comprehensive Metabolic Panel (11/02/17 03:22) Prothrombin Time / Inr (Pt) (11/02/17 03:22) Lipase (11/02/17 03:22) Ns + Kcl 40 Meq Inj (Ns + Kcl 40 Meq Inj (11/02/17 04:00) Morphine Inj (Morphine Inj) (11/02/17 04:30) Pantoprazole Inj (Protonix Inj) (11/02/17 04:30) Bedside Glucose ALANNAH.CSUGAR (11/02/17 06:09) Blood Glucose Goal (Criteria) (11/02/17 06:09) Hypoglycemia 70 Mg/Dl Or < (11/02/17 06:09) Notify Dr: Other (11/02/17 06:09) Dextrose 50% In Shon (Vial) Inj (D50w (Vi (11/02/17 06:15) Glucagon Inj (Glucagon Inj) (11/02/17 06:15) Insulin Aspart Supplemtl Scale (Novolog (11/02/17 08:00) Place In Observation (11/02/17 ) Vital Signs (Adult) Q4H (11/02/17 06:09) Activity Oob Ad Divine (11/02/17 06:09) Intake + Output ALANNAH.QSHIFT (11/02/17 06:09) Sodium Chlor 0.9% 1000 Ml Inj (Ns 1000 M (11/02/17 06:09) Sodium Chloride 0.9% Flush (Ns Flush) (11/02/17 06:15) Sodium Chloride 0.9% Flush (Ns Flush) (11/02/17 09:00) Metoclopramide Inj (Reglan Inj) (11/02/17 06:15) Comprehensive Metabolic Panel (11/03/17 06:00) Complete Blood Count With Diff (11/03/17 06:00) Pharmacologic Contraindication (11/02/17 06:09) Acetaminophen (Tylenol) (11/02/17 06:15) Acetamin-Hydrocod 325-5 Mg ([place] 5-325 (11/02/17 06:15) Acetamin-Hydrocod 325-10 Mg ([place] 10-32 (11/02/17 06:15) Docusate Sodium-Senna (Ai-Colace) (11/02/17 09:00) Magnesium Hydroxide Liq (Milk Of Magnesi (11/02/17 06:15) Sennosides (Senokot) (11/02/17 06:15) Bisacodyl Supp (Dulcolax Supp) (11/02/17 06:15) Lactulose Liq (Lactulose Liq) (11/02/17 06:15) Consult Gastroenterology (11/02/17 ) Hgb & Hct (11/02/17 12:00) Admit Order (Ed Use Only) (11/02/17 06:52) Labs Laboratory Tests Test 11/02/17 03:25 White Blood Count 8.7 TH/MM3 Red Blood Count 4.21 MIL/MM3 Hemoglobin 10.2 GM/DL Hematocrit 32.1 % Mean Corpuscular Volume 76.2 FL Mean Corpuscular Hemoglobin 24.3 PG Mean Corpuscular Hemoglobin Concent 31.9 % Red Cell Distribution Width 16.5 % Platelet Count 310 TH/MM3 Mean Platelet Volume 7.3 FL Neutrophils (%) (Auto) 43.3 % Lymphocytes (%) (Auto) 44.2 % Monocytes (%) (Auto) 7.3 % Eosinophils (%) (Auto) 4.6 % Basophils (%) (Auto) 0.6 % Neutrophils # (Auto) 3.8 TH/MM3 Lymphocytes # (Auto) 3.8 TH/MM3 Monocytes # (Auto) 0.6 TH/MM3 Eosinophils # (Auto) 0.4 TH/MM3 Basophils # (Auto) 0.1 TH/MM3 CBC Comment DIFF FINAL Differential Comment Prothrombin Time 10.2 SEC Prothromb Time International Ratio 1.0 RATIO Blood Urea Nitrogen 12 MG/DL Creatinine 0.85 MG/DL Random Glucose 88 MG/DL Total Protein 6.7 GM/DL Albumin 3.5 GM/DL Calcium Level 8.6 MG/DL Alkaline Phosphatase 113 U/L Aspartate Amino Transf (AST/SGOT) 21 U/L Alanine Aminotransferase (ALT/SGPT) 16 U/L Total Bilirubin 0.2 MG/DL Sodium Level 131 MEQ/L Potassium Level 3.0 MEQ/L Chloride Level 95 MEQ/L Carbon Dioxide Level 24.0 MEQ/L Anion Gap 12 MEQ/L Estimat Glomerular Filtration Rate 83 ML/MIN Lipase 105 U/L [facility] Medical Record Reviewed: Yes Supervised Visit with SIL: No Interpretation(s) Laboratory Tests Test 11/02/17 03:25 White Blood Count 8.7 TH/MM3 Red Blood Count 4.21 MIL/MM3 Hemoglobin 10.2 GM/DL Hematocrit 32.1 % Mean Corpuscular Volume 76.2 FL Mean Corpuscular Hemoglobin 24.3 PG Mean Corpuscular Hemoglobin Concent 31.9 % Red Cell Distribution Width 16.5 % Platelet Count 310 TH/MM3 Mean Platelet Volume 7.3 FL Neutrophils (%) (Auto) 43.3 % Lymphocytes (%) (Auto) 44.2 % Monocytes (%) (Auto) 7.3 % Eosinophils (%) (Auto) 4.6 % Basophils (%) (Auto) 0.6 % Neutrophils # (Auto) 3.8 TH/MM3 Lymphocytes # (Auto) 3.8 TH/MM3 Monocytes # (Auto) 0.6 TH/MM3 Eosinophils # (Auto) 0.4 TH/MM3 Basophils # (Auto) 0.1 TH/MM3 CBC Comment DIFF FINAL Differential Comment Prothrombin Time 10.2 SEC Prothromb Time International Ratio 1.0 RATIO Blood Urea Nitrogen 12 MG/DL Creatinine 0.85 MG/DL Random Glucose 88 MG/DL Total Protein 6.7 GM/DL Albumin 3.5 GM/DL Calcium Level 8.6 MG/DL Alkaline Phosphatase 113 U/L Aspartate Amino Transf (AST/SGOT) 21 U/L Alanine Aminotransferase (ALT/SGPT) 16 U/L Total Bilirubin 0.2 MG/DL Sodium Level 131 MEQ/L Potassium Level 3.0 MEQ/L Chloride Level 95 MEQ/L Carbon Dioxide Level 24.0 MEQ/L Anion Gap 12 MEQ/L Estimat Glomerular Filtration Rate 83 ML/MIN Lipase 105 U/L Differential Diagnosis Differential diagnosis includes angioedema, lisinopril side effect, subungual hematoma, anaphylaxis, allergic reaction, GI bleed, diverticulosis, upper GI bleed, internal hemorrhoids. Narrative Course I was asked to evaluate the patient at 8:30 AM by nursing staff. The patient was noted to have a large swollen tongue consistent with angioedema. She did have trouble talking secondary to large swollen tongue. There is no obvious stridor. I reviewed the patient's EMR, she does take lisinopril, she was not administered a dose today. She denies any history of angioedema. She is not on any anticoagulants and denies biting her tongue, I doubt subungual hematoma. It appears the patient has angioedema, possibly related to RICHI inhibitor use. The patient was administered Solu-Medrol, Benadryl, and Pepcid. However, the patient's tongue is large and swollen, may eventually compromise airway. Therefore, the on-call research group director was paged at 8:35 AM as the patient went to be transferred to [facility] [place] to monitor airway. The patient was reevaluated once again 8:55 AM, has increasing angioedema, worse than when evaluated at 8:30 AM. I spoke with the on-call anesthesiologist , Dr. Hu for evaluation as patient may need fiberoptic intubation. Dr. Martinez was paged once again. The patient was seen by anesthesia in the emergency department and agreed the patient will go to the operating room for emergent fiberoptic intubation. I discussed the patient with Dr. Abdul, general surgery, who will be backup in case patient needs tracheostomy. Dr. Abdul was also in the emergent department with the patient went to the OR. Critical Care Narrative Aggregate critical care time was 35 minutes. Time to perform other separately billable procedures was not included in the critical care time. My time did not include minutes spent treating any other patients simultaneously or on activities that did not directly contribute to the patient's treatment. The services I provided to this patient were to treat and/or prevent clinically significant deterioration that could result in: Airway obstruction, anoxia, hypoxia. I provided critical care services requiring my management, as noted below: Chart data review, documentation time, medication orders and management, vital sign assessments/reviewing monitor data, ordering and reviewing lab tests, ordering and interpreting/reviewing x-rays and diagnostic studies, care of the patient and discussion of the patient with the admitting physicians. Physician Communication Physician Communication The on-call research group director was paged for admission. Diagnosis Primary Impression: Bright red blood per rectum Additional Impression: Angioedema Qualified Codes: T78.3XXA - Angioneurotic edema, initial encounter Admitting Information Admitting Physician Requests: Admit Condition: Serious Patel Santiago MD November 02, 2017 08:36
[2017-11-02] MEDS ORDERED: FAMOTIDINE 20 MG/2 ML VIAL IV PUSH ONE (08:45)
[2017-11-02] MEDS ORDERED: methylPREDNISolone SOD SUCC 125 MG/2 ML VIAL IV PUSH ONE (08:45)
[2017-11-02] MEDS ORDERED: diphenhydrAMINE HCL 50 MG/ML VIAL IV PUSH ONE (08:45)
[2017-11-02] MEDS ORDERED: ETOMIDATE 40 MG/20 ML VIAL ONE (09:04)
--- NOTE | 2017-11-02 09:18 | PD.CONS ---
HPI History of Present Illness This is a 57 year old AA female who presents here with acute sudden onset of rectal bleed. This started around 1 AM, felt she was she was having diarrhea but was nothing but large amount of blood and clots in the toilet which went on for four hours. No previous hx of this, denies NSAIDs or blood thinners. By report, She had a colonoscopy 3 years ago that had a benign polyp. She has pain in her lower quadrant diffuse constant. She has chronic GERD but takes PPI at home. Denies nausea, vomiting, hematemesis, hematuria, diarrhea or constipation. Of note, her tongue is swollen significantly, affecting her speech , this started this morning as well, denies any new medications or recent abx. She is being transferred to the unit. hgb is 10.2. There was blood in the bed side commode. PFSH Past Medical History Left breast Cancer, 2006 [place], arthrosclerosis, 4 stents om 2011 HTN DM Depression Anemia COPD, only uses inhaler as needed Past Surgical History Past Surgical History Spinal stenosis Back surgery x2 Dr. Hinton Cardiac Catheterization Hysterectomy due to fibroids Arthroscopy of left knee x3 Lumpectomy of left breast Colonoscopy Coded Allergies: penicillin G (Unverified Allergy, Severe, ANAPHALAXIS, 11/02/17) Medications Current Medications Medications (Trade) Dose Ordered Sig/Taty Route Start Time Stop Time Status Last Admin Potassium Chloride/Sodium Chloride 1,000 ml @ 125 mls/hr Q8H IV 11/02/17 04:00 11/02/17 04:15 (D50w (Vial) Inj) 50 ml UNSCH PRN IV PUSH 11/02/17 06:15 (Glucagon Inj) 1 mg UNSCH PRN OTHER 11/02/17 06:15 (NovoLOG SUPPLEMENTAL SCALE) 1 ACHS SLIDING SCALE SQ 11/02/17 08:00 Sodium Chloride 1,000 ml @ 100 mls/hr Q10H IV 11/02/17 06:09 (NS Flush) 2 ml UNSCH PRN IV FLUSH 11/02/17 06:15 (NS Flush) 2 ml BID IV FLUSH 11/02/17 09:00 (Reglan Inj) 5 mg Q6H PRN IV PUSH 11/02/17 06:15 (Tylenol) 650 mg Q6H PRN PO 11/02/17 06:15 ([place] 5-325 Mg) 1 tab Q4H PRN PO 11/02/17 06:15 ([place] 10-325 Mg) 1 tab Q4H PRN PO 11/02/17 06:15 (Ai-Colace) 1 tab BID PO 11/02/17 09:00 (Milk Of Magnesia Liq) 30 ml Q12H PRN PO 11/02/17 06:15 (Senokot) 17.2 mg Q12H PRN PO 11/02/17 06:15 (Dulcolax Supp) 10 mg DAILY PRN RECTAL 11/02/17 06:15 (Lactulose Liq) 30 ml DAILY PRN PO 11/02/17 06:15 Family History No family hx of colon cancer Social History Smokes cigarettes occasionally, Drinks alcohol occasionally, about once a year Denies illicit drug use Review of Systems Constitutional: COMPLAINS OF: Fatigue Endocrine: DENIES: Polyuria Eyes: DENIES: Double Vision Ears, nose, mouth, throat: DENIES: Hoarseness Respiratory: COMPLAINS OF: Shortness of breath Cardiovascular: DENIES: Lower Extremity Edema Gastrointestinal: COMPLAINS OF: Abdominal pain, Bloody stools, Difficulty Swallowing, DENIES: Black stools, Constipation, Diarrhea, Nausea, Vomiting, Anorexia, Odynophagia, Swelling of Abdomen, Heartburn, Hematemesis Genitourinary: DENIES: Hematuria Musculoskeletal: DENIES: Neck pain Integumentary: DENIES: Jaundice Hematologic/lymphatic: DENIES: Bruising Immunologic/allergic: DENIES: Eczema Neurologic: DENIES: Abnormal gait Psychiatric: DENIES: Anxiety GI Exam Vitals I&O Vital Signs Date Time Temp Pulse Resp B/P (MAP) Pulse Ox O2 Delivery O2 Flow Rate FiO2 11/02/17 06:45 83 16 126/68 (87) 100 Room Air 11/02/17 03:12 98.1 78 16 144/81 (102) 97 Laboratory Test 11/02/17 03:25 White Blood Count 8.7 TH/MM3 Red Blood Count 4.21 MIL/MM3 Hemoglobin 10.2 GM/DL Hematocrit 32.1 % Mean Corpuscular Volume 76.2 FL Mean Corpuscular Hemoglobin 24.3 PG Mean Corpuscular Hemoglobin Concent 31.9 % Red Cell Distribution Width 16.5 % Platelet Count 310 TH/MM3 Mean Platelet Volume 7.3 FL Neutrophils (%) (Auto) 43.3 % Lymphocytes (%) (Auto) 44.2 % Monocytes (%) (Auto) 7.3 % Eosinophils (%) (Auto) 4.6 % Basophils (%) (Auto) 0.6 % Neutrophils # (Auto) 3.8 TH/MM3 Lymphocytes # (Auto) 3.8 TH/MM3 Monocytes # (Auto) 0.6 TH/MM3 Eosinophils # (Auto) 0.4 TH/MM3 Basophils # (Auto) 0.1 TH/MM3 CBC Comment DIFF FINAL Differential Comment Prothrombin Time 10.2 SEC Prothromb Time International Ratio 1.0 RATIO Blood Urea Nitrogen 12 MG/DL Creatinine 0.85 MG/DL Random Glucose 88 MG/DL Total Protein 6.7 GM/DL Albumin 3.5 GM/DL Calcium Level 8.6 MG/DL Alkaline Phosphatase 113 U/L Aspartate Amino Transf (AST/SGOT) 21 U/L Alanine Aminotransferase (ALT/SGPT) 16 U/L Total Bilirubin 0.2 MG/DL Sodium Level 131 MEQ/L Potassium Level 3.0 MEQ/L Chloride Level 95 MEQ/L Carbon Dioxide Level 24.0 MEQ/L Anion Gap 12 MEQ/L Estimat Glomerular Filtration Rate 83 ML/MIN Lipase 105 U/L Physical Examination HEENT: normocephalic; atraumatic; no jaundice. Swollen tongue CHEST: Chest is clear to auscultation and percussion. CARDIAC: Regular rate and rhythm with no murmur gallop or rubs. ABDOMEN: Soft, nondistended, lower abd tenderness; no hepatosplenomegaly; bowel sounds are present in all four quadrants. EXTREMITIES: No clubbing, cyanosis, or edema. SKIN: Normal; no rash; no jaundice. SALES OPERATIONS ASSOCIATE: No focal deficits; alert and oriented times three. Assessment and Plan Plan - Acute sudden BRBPR- This is significant, several times, independent of BM, started last night, no previous hx of this No NSAIDs, no alcohol, no blood thinners. Last colonoscopy 3 yrs ago, hgb is 10.2, - Lower abd pain- Constant - Angioedema- Being transferred to the unit - HX of DM, HTN per attending Plan: - Clear liquid - Plan for colonoscopy in the am - Consents - NPO mn - Golytely today - CT of A/P - Serial hh - Transfuse as needed - Cont. PPI - Supportive care - Pt seen and examined by Dr. Antonio and myself and this note is written on his behalf Edna Mock November 02, 2017 09:18
[2017-11-02] MEDS ORDERED: OXYMETAZOLINE HCL 0.05% 15 ML NASAL SPRAY ONE (09:26)
[2017-11-02] MEDS ORDERED: KETAMINE HCL 500 MG/10 ML VIAL ONE (09:26)
[2017-11-02] MEDS ORDERED: MIDAZOLAM HCL 2 MG/2 ML VIAL ONE ×2 (09:27→10:24)
[2017-11-02] MEDS ORDERED: DIATRIZOATE MEGLUM/DIATRIZOATE SOD 9 ML CUP PO ONE (09:45)
--- NOTE | 2017-11-02 10:00 | HHI.HP ---
HPI Service Critical Care Medicine Primary Care Physician CLARENCE Nava Admission Diagnosis rectal bleeding Diagnosis: Chief Complaint: Rectal bleeding. Tongue swelling Travel History International Travel<30 Days: No Contact w/Intl Traveler <30 Da: No Traveled to Known Affected Are: No History of Present Illness HPI 57-year-old female who presented to the ER after she noticed rectal bleeding around 1 AM along with diarrhea. Patient previously has had a colonoscopy 3 years ago at which time she had a benign polyp resected. She is not on any anticoagulation. Patient was accepted for admission by hospitalist service however while in the ER this morning around 8:30 AM patient was noted to have swelling of her tongue. Dr. Santiago evaluated patient in the ER and subsequently called me as he felt patient had developed angioedema and needed to be admitted to the ICU. Patient did receive IV Pepcid and Solu-Medrol as well as Benadryl in the ER. She was having a little difficulty with her speech however appear to be breathing comfortably. Her tongue swelling remained about the same and I came down to evaluate the patient in the ER. Anesthesia had already been called as it was felt patient needed to be intubated for airway protection. When I evaluated the patient in the ER she was resting in the ER stretcher with significant tongue swelling however no stridor. Anesthesia decided to take patient to the OR for intubation with surgical backup for tracheostomy if needed. Dr. Abdul had already been contacted by ER physician and was in the ER as well at the time of my evaluation. Patient was being taken to the OR for fiberoptic intubation by anesthesia and will be admitted to the ICU following the intubation. She does have a history of CAD, diabetes mellitus and hypertension. Patient has also been evaluated by GI. [facility] Past Medical History Hx Anticoagulant Therapy: Yes Arthritis: Yes Asthma: No Autoimmune Disease: No Blood Disorders: No Anxiety: No Depression: Yes Heart Rhythm Problems: Yes (IRREGULAR RHYTHM TACHYCARDIA HISTORY ) Cancer: Yes (left breast 2007) Cardiac Catheterization: Yes Cardiovascular Problems: Yes High Cholesterol: Yes Chemotherapy: No Chest Pain: Yes Congestive Heart Failure: No COPD: Yes Cerebrovascular Accident: No Diabetes: Yes Patient Takes Glucophage: Yes Diminished Hearing: Yes (BILAT hearing aides) Endocrine: Yes GERD: No Glaucoma: No Gout: Yes Genitourinary: Yes (uti) Headaches: Yes Hepatitis: No Hiatal Hernia: No Heparin Induced Thrombocytopen: No Hypertension: Yes Immune Disorder: No Implanted Vascular Access Dvce: No Kidney Stones: No Medical other: Yes (HYPERLIPIDEMIA) Musculoskeletal: Yes ( back and neck problems) Psychiatric: Yes Reproductive: No Respiratory: No Immunizations Current: Yes Migraines: No Myocardial Infarction: Yes Radiation Therapy: Yes Renal Failure: No Seizures: No Sickle Cell Disease: No Sleep Apnea: No Thyroid Disease: No Triglycerides - High: Yes Ulcer: No PNEUMOCCOCAL Vaccine (Year): 1 Menopausal: Yes Past Surgical History Abdominal Surgery: Yes AICD: No Appendectomy: No Arteriovenous Shunt: No Body Medical Devices: x4 cardiac stents hardware in the back Cardiac Surgery: Yes (x4 cardiac stents) Cholecystectomy: No Coronary Artery Bypass Graft: No Coronary Stent: Yes (X4) Ear Surgery: No Endocrine Surgery: No Eye Surgery: Yes (CATARACT BILAT) Genitourinary Surgery: No Gynecologic Surgery: Yes (FIBROID TUMORS FROM UTERUS REMOVED BY LASER, ) Hysterectomy: Yes Insulin Pump: No Joint Replacement: No Neurologic Surgery: Yes (LUMBAR LAMINECTOMY X 2- LUMBAR FUSION) Oral Surgery: Yes (ALL TEETH REMOVED) Pacemaker: No Thoracic Surgery: Yes (left breast lumpectomy) Other Surgery: Yes (LT BREAST LUMPECTOMY, MARGARITA, BACK) Family History Family Myocardial Infarction: Yes Social History Alcohol Use: Yes (occ) Tobacco Use: Yes (occ) Substance Use: No Allergies-Medications (Allergen,Severity, Reaction): Coded Allergies: penicillin G (Unverified Allergy, Severe, ANAPHALAXIS, 11/02/17) Reported Meds & Prescriptions Reported Meds & Active Scripts Active Hydrocodone-Acetaminophen 10-325 mg Tab 1 Tab PO Q8HR PRN Reported Flexeril (Cyclobenzaprine HCl) 10 Mg Tab 10 Mg PO DAILY Metformin (Metformin HCl) 500 Mg Tab 500 Mg PO BIDPC Allopurinol 300 Mg Tab 300 Mg PO DAILY Isosorbide Mononitrate ER (Isosorbide Mononitrate) 30 Mg Leah 30 Mg PO DAILY Aspir-Low (Aspirin) 81 Mg Tabdr 1 Tab PO DAILY Amitriptyline (Amitriptyline HCl) 25 Mg Tab 25 Mg PO HS Metoprolol Tartrate 50 Mg Tab 50 Mg PO BID Hydrochlorothiazide 12.5 Mg Tab 12.5 Mg PO DAILY Zantac (Ranitidine HCl) 150 Mg Tab 150 Mg PO BID Nitroglycerin SL (Nitroglycerin) 0.4 Mg Subl 0.4 Mg SL DIRECTED PRN ONE TABLET UNDER THE TONGUE NEEDED FOR CHEST PAIN, MAY REPEAT EVERY FIVE MINUTES FOR A TOTAL OF 3 DOSES OR CALL 911 IF NO RELIEF Lisinopril 10 Mg Tab 10 Mg PO DAILY Atorvastatin (Atorvastatin Calcium) 80 Mg Tab 80 Mg PO DAILY Gabapentin 800 Mg Tab 800 Mg PO DIRECTED PRN Review of Systems Except as stated in HPI: all other systems reviewed are Neg Gastrointestinal: Positive: Hematochezia, Other (Large amount of blood and blood clots in her stool) Physical Exam Vital Signs Vital Signs Date Time Temp Pulse Resp B/P (MAP) Pulse Ox O2 Delivery O2 Flow Rate FiO2 11/02/17 06:45 83 16 126/68 (87) 100 Room Air 11/02/17 03:12 98.1 78 16 144/81 (102) 97 Physical Exam Physical Exam Narrative GENERAL: Averagely built -[place] female laying in the ER stretcher with some tongue swelling however not in acute respiratory distress. SKIN: Warm and dry. HEAD: Atraumatic. Normocephalic. EYES: Pupils equal and round. No scleral icterus. No injection or drainage. ENT: No nasal bleeding or discharge. Significant tongue swelling noted. Speech muffled secondary to tongue swelling NECK: Trachea midline. No JVD. CARDIOVASCULAR: Regular rate and rhythm. RESPIRATORY: No accessory muscle use. Clear to auscultation. Breath sounds equal bilaterally. No stridor GASTROINTESTINAL: Abdomen, tender to the lower diffuse. no epigastric pain MUSCULOSKELETAL: Extremities without clubbing, cyanosis, or edema. No obvious deformities. NEUROLOGICAL: Awake and alert. No obvious cranial nerve deficits. Motor grossly within normal limits. Five out of 5 muscle strength in the arms and legs. PSYCHIATRIC: Appropriate mood and affect; insight and judgment normal. Laboratory Laboratory Tests Test 11/02/17 03:25 White Blood Count 8.7 Red Blood Count 4.21 Hemoglobin 10.2 Hematocrit 32.1 Mean Corpuscular Volume 76.2 Mean Corpuscular Hemoglobin 24.3 Mean Corpuscular Hemoglobin Concent 31.9 Red Cell Distribution Width 16.5 Platelet Count 310 Mean Platelet Volume 7.3 Neutrophils (%) (Auto) 43.3 Lymphocytes (%) (Auto) 44.2 Monocytes (%) (Auto) 7.3 Eosinophils (%) (Auto) 4.6 Basophils (%) (Auto) 0.6 Neutrophils # (Auto) 3.8 Lymphocytes # (Auto) 3.8 Monocytes # (Auto) 0.6 Eosinophils # (Auto) 0.4 Basophils # (Auto) 0.1 CBC Comment DIFF FINAL Differential Comment Prothrombin Time 10.2 Prothromb Time International Ratio 1.0 Blood Urea Nitrogen 12 Creatinine 0.85 Random Glucose 88 Total Protein 6.7 Albumin 3.5 Calcium Level 8.6 Alkaline Phosphatase 113 Aspartate Amino Transf (AST/SGOT) 21 Alanine Aminotransferase (ALT/SGPT) 16 Total Bilirubin 0.2 Sodium Level 131 Potassium Level 3.0 Chloride Level 95 Carbon Dioxide Level 24.0 Anion Gap 12 Estimat Glomerular Filtration Rate 83 Lipase 105 Result Diagram: 11/02/17 0325 11/02/175 Imaging Chest x-ray pending Caprini VTE Risk Assessment Caprini VTE Risk Assessment: Mod/High Risk (score >= 2) VTE Pharm Contraindication: Hemorrhage Caprini Risk Assessment Model Point Value = 1 Point Value = 2 Point Value = 3 Point Value = 5 Age 41-60 Minor surgery BMI > 25 kg/m2 Swollen legs Varicose veins or History of unexplained or recurrent spontaneous Oral contraceptives or hormone replacement Sepsis (< 1 month) Serious lung disease, including pneumonia (< 1 month) Abnormal pulmonary function Acute myocardial infarction Congestive heart failure (< 1 month) History of inflammatory bowel disease Medical patient at bed rest Age 61-74 Arthroscopic surgery Major open surgery (> 45 min) Laparoscopic surgery (> 45 min) Malignancy Confined to bed (> 72 hours) Immobilizing plaster cast Central venous access Age >= 75 History of VTE Family history of VTE Factor V Leiden Prothrombin 22008L Lupus anticoagulant Anticardiolipin antibodies Elevated serum homocysteine Heparin-induced thrombocytopenia Other congenital or acquired thrombophilia Stroke (< 1 month) Elective arthroplasty Hip, pelvis, or leg fracture Acute spinal cord injury (< 1 month) Prophylaxis Regimen Total Risk Factor Score Risk Level Prophylaxis Regimen 0-1 Low Early ambulation 2 Moderate Order ONE of the following: *Sequential Compression Device (SCD) *Heparin 5000 units SQ BID 3-4 Higher Order ONE of the following medications: *Heparin 5000 units SQ TID *Enoxaparin/Lovenox 40 mg SQ daily (WT < 150 kg, CrCl > 30 mL/min) *Enoxaparin/Lovenox 30 mg SQ daily (WT < 150 kg, CrCl > 10-29 mL/min) *Enoxaparin/Lovenox 30 mg SQ BID (WT < 150 kg, CrCl > 30 mL/min) AND/OR *Sequential Compression Device (SCD) 5 or more Highest Order ONE of the following medications: *Heparin 5000 units SQ TID (Preferred with Epidurals) *Enoxaparin/Lovenox 40 mg SQ daily (WT < 150 kg, CrCl > 30 mL/min) *Enoxaparin/Lovenox 30 mg SQ daily (WT < 150 kg, CrCl > 10-29 mL/min) *Enoxaparin/Lovenox 30 mg SQ BID (WT < 150 kg, CrCl > 30 mL/min) AND *Sequential Compression Device (SCD) Assessment and Plan Assessment and Plan 57-year-old female with: Rectal bleeding Angioedema Diabetes mellitus Hypertension CAD Plan: Neuro: Keep patient sedated with propofol/fentanyl GTT, Versed as needed. Daily sedation vacation. Follow neuro status Cardiovascular: IV hydration, watch for hypotension. Hold antihypertensives at this time. Pulmonary: Patient intubated for airway protection by anesthesia using a glide scope. Placed on mechanical ventilation, vent bundle, bronchodilators. Will await decrease in angioedema prior to initiating CPAP trials. Ordered Decadron , Pepcid, Benadryl IV for angioedema. GI/liver: N.p.o. GI consulted for rectal bleeding. Awaiting CT abdomen pelvis. Will be getting colonoscopy per GI. Renal/: IV hydration, strict intake output, monitor and replete electrodes, follow BUN creatinine. Heme: Follow CBC and coags. Transfuse to keep hemoglobin above 8 g percent. Endocrine: SSI for glycemic control Prophylaxis: Pepcid/SCDs. No Lovenox in view of GI bleed. Further recommendations per GI Discussed with anesthesia. Condition critical. Time spent on critical care excluding procedures 60 minutes Zachary Martinez MD November 02, 2017 10:00
[2017-11-02] MEDS ORDERED: PROPOFOL 500 MG/50 ML INJ 50 ML ONE (10:18)
[2017-11-02] MEDS ORDERED: fentaNYL DRIP 250 ML IV PRN (10:30)
[2017-11-02] MEDS ORDERED: PROPOFOL 1000 MG/100 ML INJ 100 ML IV PRN (10:30)
[2017-11-02] MEDS ORDERED: MIDAZOLAM HCL 2 MG/2 ML VIAL IV PUSH PRN (10:30)
[2017-11-02] MEDS ORDERED: SODIUM CHLORIDE 0.9% FLUSH 10 ML FLUSH IV FLUSH PRN (10:30)
[2017-11-02] MEDS ORDERED: CHLORHEXIDINE GLUCONATE 2 % 1 PACK (2 CLOTHS) TOP PRN (10:30)
[2017-11-02] MEDS ORDERED: NURSING INFORMATION XX SCH (10:30)
[2017-11-02] MEDS ORDERED: MIDAZOLAM HCL 5 MG/ML VIAL (1 ML) ONE (10:34)
[2017-11-02] MEDS ORDERED: SODIUM CHLOR 0.9% 1000 ML INJ 1,000 ML IV ONE (10:45)
[2017-11-02] MEDS: DEXAMETHASONE SOD PHOS 4 MG/ML VIAL IV PUSH SCH ×3 (11:03→23:36)
[2017-11-02] MEDS: diphenhydrAMINE HCL 50 MG/ML VIAL IV PUSH SCH ×4 (11:03→23:36)
[2017-11-02] MEDS: fentaNYL DRIP 250 ML IV PRN ×2 (11:05→21:15)
--- NOTE | 2017-11-02 11:59 | RADRPT ---
EXAM DATE: 11/02/2017 11:54 AM EDT AGE/SEX: 57 years / Female INDICATIONS: Evaluate ET tube placement. CLINICAL DATA: This is the patient's initial encounter. Patient reports that signs and symptoms have been present for 1 day and indicates a pain score of Nonresponsive. MEDICAL/SURGICAL HISTORY: Non-responsive. Non-responsive. COMPARISON: [facility] [place], CHEST SINGLE AP, 01/27/2017. . FINDINGS: The endotracheal tube appears to be in good position. The tip is approximately 1 cm above the aortic arch. No pneumothorax. Mild infiltrate in the left lung base. The right lung is grossly clear. Bony s tructures are stable. CONCLUSION: ET tube in good position. No pneumothorax. Electronically signed by: Qasim Sheffield MD 11/02/2017 11:58 AM EDT
[2017-11-02] MEDS ORDERED: LIDOCAINE HCL 1% PF 5 ML SYRINGE OTHER ONE (12:00)
[2017-11-02] MEDS ORDERED: PHENYLEPH/NS 1000 MCG/10 ML SYR IV ONE (12:00)
[2017-11-02] MEDS ORDERED: LACTATED RINGER'S 1000 ML INJ 1,000 ML IV ONE (12:00)
[2017-11-02] MEDS ORDERED: GLYCOPYRROLATE 1 MG/5 ML SYRINGE IV PUSH ONE (12:00)
[2017-11-02] MEDS ORDERED: PROPOFOL 200 MG/20 ML AMP IV ONE (12:00)
[2017-11-02] MEDS ORDERED: ROCURONIUM INJ 50 MG/5 ML SYRINGE IV PUSH ONE (12:00)
[2017-11-02 12:32] LABS: HEMATOCRIT 30.6 % (35.0-46.0); HEMOGLOBIN 9.6 GM/DL (11.6-15.3)
--- NOTE | 2017-11-02 12:38 | HHI.PR ---
Subjective Subjective Notes Angioedema-Airway emergency Objective Vitals/I&O Vital Signs Date Time Temp Pulse Resp B/P (MAP) Pulse Ox O2 Delivery O2 Flow Rate FiO2 11/02/17 10:30 100 40 11/02/17 09:56 11/02/17 09:15 85 16 Nasal Cannula 2.00 11/02/17 03:12 98.1 Labs Laboratory Tests Test 11/02/17 03:25 11/02/17 10:35 11/02/17 11:00 11/02/17 12:04 White Blood Count 8.7 Red Blood Count 4.21 Hemoglobin 10.2 9.6 Hematocrit 32.1 30.6 Mean Corpuscular Volume 76.2 Mean Corpuscular Hemoglobin 24.3 Mean Corpuscular Hemoglobin Concent 31.9 Red Cell Distribution Width 16.5 Platelet Count 310 Mean Platelet Volume 7.3 Neutrophils (%) (Auto) 43.3 Lymphocytes (%) (Auto) 44.2 Monocytes (%) (Auto) 7.3 Eosinophils (%) (Auto) 4.6 Basophils (%) (Auto) 0.6 Neutrophils # (Auto) 3.8 Lymphocytes # (Auto) 3.8 Monocytes # (Auto) 0.6 Eosinophils # (Auto) 0.4 Basophils # (Auto) 0.1 CBC Comment DIFF FINAL Differential Comment Prothrombin Time 10.2 Prothromb Time International Ratio 1.0 Blood Urea Nitrogen 12 Creatinine 0.85 Random Glucose 88 Total Protein 6.7 Albumin 3.5 Calcium Level 8.6 Alkaline Phosphatase 113 Aspartate Amino Transf (AST/SGOT) 21 Alanine Aminotransferase (ALT/SGPT) 16 Total Bilirubin 0.2 Sodium Level 131 Potassium Level 3.0 Chloride Level 95 Carbon Dioxide Level 24.0 Anion Gap 12 Estimat Glomerular Filtration Rate 83 Lipase 105 Blood Gas Puncture Site ART LINE Blood Gas Patient Temperature 98.6 Blood Gas HCO3 23 Blood Gas Base Excess -2.0 Blood Gas Oxygen Saturation 93 Arterial Blood pH 7.35 Arterial Blood Partial Pressure CO2 42 Arterial Blood Partial Pressure O2 121 Arterial Blood Oxygen Content 12.8 Arterial Blood Carboxyhemoglobin 3.5 Arterial Blood Methemoglobin 1.4 Blood Gas Hemoglobin 9.6 Oxygen Delivery Device VENTILATOR Blood Gas Ventilator Setting PRVC/AC 12/500 Blood Gas Inspired Oxygen 40 Narrative Exam no stridor swollen tongue A/P Assessment and Plan Was asked by anesthesia to provide standby in the OR for patient with angioedema Remained in OR -during successful intubation by anesthesia with the videoscopic intubation Alyse Abdul MD November 02, 2017 12:38
[2017-11-02] MEDS: POTASSIUM CHLOR 20 MEQ PREMIX 100 ML IV SCH ×4 (13:09→18:08)
[2017-11-02] MEDS: PROPOFOL 1000 MG/100 ML INJ 100 ML IV PRN (13:17)
[2017-11-02] MEDS ORDERED: MIDAZOLAM 100 MG/100 ML INJ 100 ML IV PRN (14:15)
[2017-11-02] MEDS: MIDAZOLAM 50 MG/NS 50 ML DRIP Premix IV PRN ×2 (14:43→18:35)
[2017-11-02] MEDS: SODIUM CHLOR 0.9% 1000 ML INJ 1,000 ML IV SCH ×2 (14:44→15:45)
[2017-11-02] MEDS: RESP: ALBUTEROL 2.5 MG/IPRATROPIUM 0.5 MG NEB (SCH) NEB ×2 (15:13→20:58)
[2017-11-02] MEDS ORDERED: PEG (High)/E-LYTE SOLN 4000 ML BTL PO ONE (16:00)
[2017-11-02 17:33] LABS: HEMATOCRIT 29.4 % (35.0-46.0); HEMOGLOBIN 9.2 GM/DL (11.6-15.3)
[2017-11-02] MEDS ORDERED: NOREPINEPHRINE 4 MG/D5W 250 ML IV PRN (17:45)
[2017-11-02] MEDS: CHLORHEXIDINE 0.12% (ORAL KIT) 15 ML CUP MT SCH (20:00)
[2017-11-02] MEDS: DOCUSATE SODIUM 50 MG/SENNA 8.6 MG TAB PO SCH (20:11)
[2017-11-02] MEDS: FAMOTIDINE 20 MG/2 ML VIAL IV PUSH SCH (20:11)
[2017-11-02] MEDS: SODIUM CHLORIDE 0.9% FLUSH 10 ML FLUSH IV FLUSH SCH (20:11)
[2017-11-02] MEDS ORDERED: SODIUM CHLORIDE 0.9% FLUSH 10 ML FLUSH IV FLUSH SCH (21:00)
[2017-11-02 21:34] LABS: HEMATOCRIT 32.4 % (35.0-46.0); HEMOGLOBIN 10.2 GM/DL (11.6-15.3)
[2017-11-02] MEDS ORDERED: IOHEXOL 350 MG/ML 10 ML VIAL (for RAD DIAG) IVCONTRAST ONE (22:44)
--- NOTE | 2017-11-02 22:52 | RADRPT ---
EXAM DATE: 11/02/2017 10:43 PM EDT AGE/SEX: 57 years / Female INDICATIONS: Hemoglobin dropping; rectal bleeding. CLINICAL DATA: This is the patient's initial encounter. Patient reports that signs and symptoms have been present for 1 day and indicates a pain score of Nonresponsive. MEDICAL/SURGICAL HISTORY: Carcinoma, breast. Cardiovascular disease. Gastroesophageal reflux disease. Hypertension, Diabetes None. ORAL CONTRAST: Prescribed oral contrast ingested. RADIATION DOSE: 10.43 CTDI (mGy) COMPARISON: No prior [place] exams available for comparison. TECHNIQUE: Multiple contiguous axial images were obtained through the abdomen and pelvis following b olus infusion of 96 ml Omnipaque 350 (iohexol) nonionic water-soluble contrast as a single exam dos e. Prescribed oral contrast ingested. Using automated exposure control and adjustment of the mA and/ or kV according to patient size, the radiation dose was kept as low as reasonably achievable to obtai n optimal diagnostic quality images. FINDINGS: Lower Lungs: Consolidating airspace disease is identified in both lower lobes. The heart is mildly en larged. Liver: The liver has a homogeneous density without space-occupying lesion. There is no dilation of th e biliary tree. Spleen: Homogeneous density without enlargement. Pancreas: Unremarkable without mass or calcification. Kidneys: Normal in size and shape. No evidence of mass or hydronephrosis. Adrenal Glands: Unremarkable. Aorta: The aorta and proximal iliac vessels are grossly unremarkable without aneurysmal dilation. Bowel/Mesentery: The bowel loops are grossly unremarkable. There is no evidence of ileus or active i nflammatory disease. There is no evidence of free air or extraintestinal fluid collections.. Abdominal Wall: Intact. Retroperitoneum: No evidence of adenopathy in the retrocrural, para-aortic, or deep pelvic regions. Bladder: Morales catheter is noted in place. Reproductive Organs: No abnormal masses or calcifications seen. Inguinal: The inguinal region is unremarkable without evidence of adenopathy. Bony Structures: Postsurgical changes are seen in the lumbosacral junction following fusion. CONCLUSION: 1. Bibasilar consolidating airspace disease. 2. No evidence of acute intestinal abnormality. 3. Morales catheter in place. 4. Status post lumbosacral fusion. Electronically signed by: Rick Isbell MD 11/02/2017 10:51 PM EDT
[2017-11-03] VITALS (22 sets, daily range): BP systolic 100–172; BP diastolic 49–81; PULSE 83–101; RESP 0–15; TEMP 97.8–99.1; O2SAT 89–100
[2017-11-03] MEDS: MIDAZOLAM 50 MG/NS 50 ML DRIP Premix IV PRN ×5 (00:17→22:11)
[2017-11-03] MEDS: SODIUM CHLOR 0.9% 1000 ML INJ 1,000 ML IV SCH ×4 (03:00→17:14)
[2017-11-03 03:01] LABS: AUTOMATED NEUTROPHIL # 12.6 TH/MM3 (1.8-7.7); BASOPHIL % 0.2 % (0.0-2.0); HEMATOCRIT 31.8 % (35.0-46.0); HEMOGLOBIN 10.1 GM/DL (11.6-15.3); LYMPH % 10.6 % (9.0-44.0); LYMPHOCYTE # 1.5 TH/MM3 (1.0-4.8); MEAN CELL VOLUME 78.2 FL (80.0-100.0); MEAN CORPUSCULAR HEMOGLOBIN 24.7 PG (27.0-34.0); MEAN CORPUSCULAR HGB CONC 31.6 % (32.0-36.0); MEAN PLATELET VOLUME 7.1 FL (7.0-11.0); MONOCYTE # 0.3 TH/MM3 (0-0.9); NEUT % 87.2 % (16.0-70.0); PLATELET COUNT 349 TH/MM3 (150-450); RED BLOOD COUNT 4.07 MIL/MM3 (4.00-5.30); RED CELL DISTRIBUTION WIDTH 17.2 % (11.6-17.2); WHITE BLOOD COUNT 14.5 TH/MM3 (4.0-11.0)
[2017-11-03] MEDS: diphenhydrAMINE HCL 50 MG/ML VIAL IV PUSH SCH ×6 (03:16→23:15)
[2017-11-03] MEDS: CHLORHEXIDINE GLUCONATE 2 % 1 PACK (2 CLOTHS) TOP SCH (03:34)
[2017-11-03 03:40] LABS: ALBUMIN 3.2 GM/DL (3.4-5.0); ALKALINE PHOSPHATASE 105 U/L (45-117); ALT (GPT) 15 U/L (10-53); AST (GOT) 14 U/L (15-37); BICARBONATE 21.3 MEQ/L (21.0-32.0); BLOOD UREA NITROGEN 16 MG/DL (7-18); CHLORIDE 108 MEQ/L (98-107); CREATININE 0.91 MG/DL (0.50-1.00); GLOMERULAR FILTRATION RATE 77 ML/MIN (>89); GLUCOSE,RANDOM 168 MG/DL (74-106); SODIUM (NA) 138 MEQ/L (136-145); TOTAL BILIRUBIN ADULT 0.3 MG/DL (0.2-1.0); TOTAL PROTEIN 6.4 GM/DL (6.4-8.2)
[2017-11-03] MEDS: NS + KCL 40 MEQ INJ 1,000 ML IV SCH (03:41)
[2017-11-03] MEDS: RESP: ALBUTEROL 2.5 MG/IPRATROPIUM 0.5 MG NEB (SCH) NEB ×4 (03:47→21:49)
[2017-11-03] MEDS: fentaNYL DRIP 250 ML IV PRN ×3 (04:58→23:45)
[2017-11-03] MEDS ORDERED: SODIUM BICARBONATE 8.4% SOLN 50 MEQ/50 ML VIAL IV PUSH ONE (05:00)
[2017-11-03] MEDS ORDERED: INSULIN HUMAN REGULAR 1,000 UNITS/10 ML VIAL IV PUSH ONE (05:00)
[2017-11-03] MEDS ORDERED: DEXTROSE 50% IN WATER 50 ML VIAL(D50) IV PUSH ONE (05:00)
[2017-11-03] MEDS ORDERED: CALCIUM GLUCONATE INJ 2 GM in SODIUM CHLORIDE 0.9% INJ 100 ML IV ONE (05:00)
[2017-11-03] MEDS: DEXAMETHASONE SOD PHOS 4 MG/ML VIAL IV PUSH SCH ×4 (05:04→23:15)
[2017-11-03] MEDS: SODIUM POLYSTYRENE SULFONATE SUSP 15 GM/60 ML CUP PO SCH ×5 (07:52→13:47)
[2017-11-03] MEDS: SODIUM CHLORIDE 0.9% FLUSH 10 ML FLUSH IV FLUSH PRN (07:53)
[2017-11-03] MEDS: SODIUM CHLORIDE 0.9% FLUSH 10 ML FLUSH IV FLUSH SCH ×2 (07:53→21:10)
[2017-11-03] MEDS: CHLORHEXIDINE 0.12% (ORAL KIT) 15 ML CUP MT SCH ×2 (07:53→21:11)
[2017-11-03] MEDS: FAMOTIDINE 20 MG/2 ML VIAL IV PUSH SCH ×2 (07:53→21:10)
--- NOTE | 2017-11-03 07:55 | HHI.CCPN ---
Subjective Remarks/Hospital Course 11/02: 57-year-old female who presented to the ER after she noticed rectal bleeding around 1 AM along with diarrhea. Patient previously has had a colonoscopy 3 years ago at which time she had a benign polyp resected. She is not on any anticoagulation. Patient was accepted for admission by hospitalist service however while in the ER this morning around 8:30 AM patient was noted to have swelling of her tongue. Dr. Santiago evaluated patient in the ER and subsequently called me as he felt patient had developed angioedema and needed to be admitted to the ICU. Patient did receive IV Pepcid and Solu-Medrol as well as Benadryl in the ER. She was having a little difficulty with her speech however appear to be breathing comfortably. Her tongue swelling remained about the same and I came down to evaluate the patient in the ER. Anesthesia had already been called as it was felt patient needed to be intubated for airway protection. When I evaluated the patient in the ER she was resting in the ER stretcher with significant tongue swelling however no stridor. Anesthesia decided to take patient to the OR for intubation with surgical backup for tracheostomy if needed. Dr. Abdul had already been contacted by ER physician and was in the ER as well at the time of my evaluation. Patient was being taken to the OR for fiberoptic intubation by anesthesia and will be admitted to the ICU following the intubation. She does have a history of CAD, diabetes mellitus and hypertension. Patient has also been evaluated by GI. 11/03: Remains sedated, orally intubated on mechanical ventilation. On and off levo fed 1 kylah per minute currently. Received 1 unit PRBCs yesterday. Tongue swelling persists. Awaiting colonoscopy by GI. Objective Vital Signs Date Time Temp Pulse Resp B/P (MAP) Pulse Ox O2 Delivery O2 Flow Rate FiO2 11/03/17 06:30 100 154/76 11/03/17 04:00 97.8 12 100 11/03/17 04:00 40 11/02/17 09:15 Nasal Cannula 2.00 Intake and Output 11/03/17 11/03/17 11/04/17 08:00 16:00 00:00 Intake Total 2515 ml Output Total 900 ml Balance 1615 ml Result Diagram: 11/03/17 0250 11/03/17 0250 Other Results Laboratory Tests Test 5/26/18 10:35 Blood Gas Puncture Site ART LINE Blood Gas Patient Temperature 98.6 Blood Gas HCO3 23 mmol/L (22-26) Blood Gas Base Excess -2.0 mmol/L (-2-2) Blood Gas Oxygen Saturation 93 % (90-100) Arterial Blood pH 7.35 (7.380-7.420) Arterial Blood Partial Pressure CO2 42 mmHg (38-42) Arterial Blood Partial Pressure O2 121 mmHg (61-120) Arterial Blood Oxygen Content 12.8 Vol % (12.0-20.0) Arterial Blood Carboxyhemoglobin 3.5 % (0-4) Arterial Blood Methemoglobin 1.4 % (0-2) Blood Gas Hemoglobin 9.6 G/DL (12.0-16.0) Oxygen Delivery Device VENTILATOR Blood Gas Ventilator Setting PRVC/AC 12/500 Blood Gas Inspired Oxygen 40 % Imaging Chest x-ray pending Objective Remarks HEENT/ Neuro: Sedated, orally intubated, Pallor present, no icterus, tongue swelling persists. Neck: No JVD Chest/Pulm: on mech vent, good air entry bilaterally, no wheezing or crackles CVS: S1-S2 regular, no murmur GI/abdomen: soft, nontender, bowel sounds sluggish Extremities: warm bilaterally, no edema A/P Assessment and Plan 57-year-old female with: Rectal bleeding Angioedema (most likely related to lisinopril use) Diabetes mellitus Hypertension CAD Hyperkalemia Plan: Neuro: Keep patient sedated with versed/fentanyl gtt, Versed as needed. Daily sedation vacation. Follow neuro status Cardiovascular: IV hydration, watch for hypotension. Hold antihypertensives at this time. Levophed for pressor support as needed Pulmonary: Patient intubated for airway protection by anesthesia using a glide scope. Placed on mechanical ventilation, vent bundle, bronchodilators. Will await decrease in angioedema prior to initiating CPAP trials. Ordered Decadron , Pepcid, Benadryl IV for angioedema. GI/liver: N.p.o. GI consulted for rectal bleeding. CT abdomen pelvis unremarkable. Will be getting colonoscopy per GI. Renal/: IV hydration, strict intake output, monitor and replete electrodes, follow BUN creatinine. Hyperkalemia noted. Received glucose insulin bicarb and calcium. Ordered Kayexalate. Heme: Follow CBC and coags. Transfuse to keep hemoglobin above 8 g percent. Endocrine: SSI for glycemic control Prophylaxis: Pepcid/SCDs. No Lovenox in view of GI bleed. Further recommendations per GI Discussed with anesthesia on 11/02 Condition critical. Time spent on critical care excluding procedures 30 minutes Zachary Martinez MD November 03, 2017 07:55
[2017-11-03] MEDS: INSULIN ASPART SUPPLEMENTAL SCALE SQ SCH ×4 (08:00→21:00)
[2017-11-03] MEDS: DOCUSATE SODIUM 50 MG/SENNA 8.6 MG TAB PO SCH ×2 (08:53→21:00)
[2017-11-03 09:48] LABS: HEMATOCRIT 27.7 % (35.0-46.0); HEMOGLOBIN 8.7 GM/DL (11.6-15.3)
[2017-11-03] MEDS ORDERED: PROPOFOL 200 MG/20 ML AMP IV ONE (12:00)
[2017-11-03 16:06] LABS: HEMATOCRIT 26.6 % (35.0-46.0); HEMOGLOBIN 8.4 GM/DL (11.6-15.3)
[2017-11-03 16:32] LABS: BICARBONATE 22.3 MEQ/L (21.0-32.0); CALCIUM 7.9 MG/DL (8.5-10.1); CREATININE 0.86 MG/DL (0.50-1.00)
[2017-11-03] MEDS ORDERED: KETAMINE HCL 50 MG/5 ML SYRINGE ONE (17:56)
--- NOTE | 2017-11-03 20:30 | PD.PROCEDR ---
GI Procedure PROCEDURE PERFORMED Colonoscopy with snare polypectomy INDICATION FOR PROCEDURE Rectal bleeding PROCEDURE: The procedure, risks and benefits were discussed with Patient/POA and informed consent was obtained. Anesthesia sedated Patient with Diprivan. Patient was placed in the left lateral decubitus position. Colonoscopy: The Pentax videoscope was introduced through the rectum and advanced to cecum where the ileocecal valve and appendiceal orifice were identified. Retroflexion was performed in the rectum. Colonic prep was fair FINDINGS: Colonic withdrawal time greater than 6 minutes. As the scope was slowly withdrawn colonic mucosa was carefully inspected patient was noted to have 3 small to medium size polyps one in the descending to in the sigmoid region all were excised using cold snare technique and were retrieved for further evaluation patient was also noted to have mild diverticulosis of the descending colon and sigmoid retroflexion in the rectum was unremarkable so his rectal examination ESTIMATED BLOOD LOSS: None SPECIMENS REMOVED: Colon biopsies COMPLICATIONS: None IMPRESSION: Colon polyps Diverticulosis PLAN: Await biopsies Continue with current supportive care Advance diet as tolerated Monitor labs Colonoscopy in 5 years Most likely cause was diverticular bleed Brennan Chacon MD November 03, 2017 20:30
[2017-11-04] VITALS (41 sets, daily range): BP systolic 123–173; BP diastolic 58–92; PULSE 71–100; RESP 0–24; TEMP 97.6–98.8; O2SAT 100
[2017-11-04 00:14] LABS: HEMATOCRIT 25.3 % (35.0-46.0); HEMOGLOBIN 8.2 GM/DL (11.6-15.3)
[2017-11-04] MEDS: diphenhydrAMINE HCL 50 MG/ML VIAL IV PUSH SCH ×6 (02:56→22:56)
[2017-11-04] MEDS: MIDAZOLAM 50 MG/NS 50 ML DRIP Premix IV PRN ×3 (03:00→11:26)
[2017-11-04] MEDS: CHLORHEXIDINE GLUCONATE 2 % 1 PACK (2 CLOTHS) TOP SCH (03:07)
[2017-11-04] MEDS: SODIUM CHLOR 0.9% 1000 ML INJ 1,000 ML IV SCH ×3 (03:16→22:55)
[2017-11-04] MEDS: RESP: ALBUTEROL 2.5 MG/IPRATROPIUM 0.5 MG NEB (SCH) NEB ×5 (04:23→20:31)
[2017-11-04] MEDS: DEXAMETHASONE SOD PHOS 4 MG/ML VIAL IV PUSH SCH ×3 (05:51→18:03)
[2017-11-04 06:57] LABS: AUTOMATED NEUTROPHIL # 14.2 TH/MM3 (1.8-7.7); BASOPHIL % 0.1 % (0.0-2.0); HEMATOCRIT 26.1 % (35.0-46.0); HEMOGLOBIN 8.2 GM/DL (11.6-15.3); LYMPHOCYTE # 1.1 TH/MM3 (1.0-4.8); MEAN CELL VOLUME 78.8 FL (80.0-100.0); MEAN CORPUSCULAR HEMOGLOBIN 24.7 PG (27.0-34.0); MEAN CORPUSCULAR HGB CONC 31.3 % (32.0-36.0); MEAN PLATELET VOLUME 7.5 FL (7.0-11.0); MONO % 3.4 % (0.0-8.0); MONOCYTE # 0.5 TH/MM3 (0-0.9); NEUT % 89.5 % (16.0-70.0); PLATELET COUNT 270 TH/MM3 (150-450); RED BLOOD COUNT 3.31 MIL/MM3 (4.00-5.30); RED CELL DISTRIBUTION WIDTH 17.8 % (11.6-17.2); WHITE BLOOD COUNT 15.9 TH/MM3 (4.0-11.0)
[2017-11-04 07:25] LABS: ALBUMIN 2.8 GM/DL (3.4-5.0); AST (GOT) 14 U/L (15-37); BICARBONATE 25.2 MEQ/L (21.0-32.0); BLOOD UREA NITROGEN 7 MG/DL (7-18); CHLORIDE 115 MEQ/L (98-107); CREATININE 0.72 MG/DL (0.50-1.00); GLOMERULAR FILTRATION RATE 100 ML/MIN (>89); GLUCOSE,RANDOM 134 MG/DL (74-106); SODIUM (NA) 148 MEQ/L (136-145)
[2017-11-04 07:26] LABS: ALT (GPT) 14 U/L (10-53)
[2017-11-04 07:28] LABS: ALKALINE PHOSPHATASE 88 U/L (45-117); TOTAL BILIRUBIN ADULT 0.2 MG/DL (0.2-1.0); TOTAL PROTEIN 5.4 GM/DL (6.4-8.2)
[2017-11-04] MEDS: INSULIN ASPART SUPPLEMENTAL SCALE SQ SCH ×4 (08:00→21:00)
[2017-11-04] MEDS: SODIUM CHLORIDE 0.9% FLUSH 10 ML FLUSH IV FLUSH SCH ×2 (08:14→21:16)
[2017-11-04] MEDS: SODIUM CHLORIDE 0.9% FLUSH 10 ML FLUSH IV FLUSH PRN (08:14)
[2017-11-04] MEDS: FAMOTIDINE 20 MG/2 ML VIAL IV PUSH SCH ×2 (08:15→21:17)
[2017-11-04] MEDS: CHLORHEXIDINE 0.12% (ORAL KIT) 15 ML CUP MT SCH ×2 (08:15→21:16)
[2017-11-04] MEDS: fentaNYL DRIP 250 ML IV PRN ×2 (08:16→17:35)
[2017-11-04] MEDS: DOCUSATE SODIUM 50 MG/SENNA 8.6 MG TAB PO SCH ×2 (09:00→21:00)
--- NOTE | 2017-11-04 09:23 | HHI.GIFU ---
Subjective Remarks Pt resting in bed Family at bedside Remains on sedation and orally intubated OG clamped Per RN no continued rectal bleeding (Daniela Borden) Objective Vitals I&O Vital Signs Date Time Temp Pulse Resp B/P (MAP) Pulse Ox O2 Delivery O2 Flow Rate FiO2 11/04/17 08:36 100 40 11/04/17 06:00 81 11/04/17 04:23 100 40 11/04/17 04:00 40 11/04/17 04:00 83 11/04/17 04:00 98.1 83 10 147/78 (101) 100 136/66 (89) 11/04/17 02:00 94 11/04/17 00:20 100 40 11/04/17 00:00 86 11/04/17 00:00 97.8 86 0 143/75 (97) 100 132/62 (85) 11/04/17 00:00 40 11/03/17 22:00 89 11/03/17 21:49 100 40 11/03/17 20:00 40 11/03/17 20:00 99.1 89 6 127/63 (84) 100 11/03/17 20:00 89 11/03/17 18:00 89 15 127/58 (81) 100 11/03/17 18:00 89 11/03/17 17:00 88 15 108/50 (69) 100 11/03/17 16:00 92 11/03/17 16:00 98.3 92 11 116/60 (78) 90 106/49 (68) 11/03/17 16:00 40 11/03/17 15:00 100 40 11/03/17 15:00 87 8 116/53 (74) 100 11/03/17 14:00 90 15 115/60 (78) 89 116/52 (73) 11/03/17 14:00 90 11/03/17 13:00 94 12 111/53 (72) 100 11/03/17 12:00 98.1 87 0 109/60 (76) 100 110/52 (71) 11/03/17 12:00 40 11/03/17 12:00 87 11/03/17 11:00 84 0 106/50 (68) 100 11/03/17 10:00 83 0 101/56 (71) 98 105/51 (69) 11/03/17 10:00 83 I/O 11/03/17 11/03/17 11/03/17 11/04/17 11/04/17 11/04/17 07:00 15:00 23:00 07:00 15:00 23:00 Intake Total 2515 ml 300 ml 1299 ml 1815 ml 265 ml Output Total 900 ml 1650 ml 450 ml Balance 1615 ml 300 ml -351 ml 1365 ml 265 ml Intake IV Total 2515 ml 300 ml 1249 ml 1815 ml 265 ml Other 50 ml Output Urine Total 900 ml 850 ml 450 ml Stool Total 800 ml # Bowel Movements 5 1 Laboratory Laboratory Tests Test 11/03/17 15:30 11/04/17 00:03 11/04/17 05:45 Hemoglobin 8.4 8.2 8.2 Hematocrit 26.6 25.3 26.1 Blood Urea Nitrogen 10 7 Creatinine 0.86 0.72 Random Glucose 140 134 Calcium Level 7.9 8.0 Sodium Level 147 148 Potassium Level 4.0 3.5 Chloride Level 115 115 Carbon Dioxide Level 22.3 25.2 Anion Gap 10 8 Estimat Glomerular Filtration Rate 82 100 White Blood Count 15.9 Red Blood Count 3.31 Mean Corpuscular Volume 78.8 Mean Corpuscular Hemoglobin 24.7 Mean Corpuscular Hemoglobin Concent 31.3 Red Cell Distribution Width 17.8 Platelet Count 270 Mean Platelet Volume 7.5 Neutrophils (%) (Auto) 89.5 Lymphocytes (%) (Auto) 7.0 Monocytes (%) (Auto) 3.4 Eosinophils (%) (Auto) 0.0 Basophils (%) (Auto) 0.1 Neutrophils # (Auto) 14.2 Lymphocytes # (Auto) 1.1 Monocytes # (Auto) 0.5 Eosinophils # (Auto) 0.0 Basophils # (Auto) 0.0 CBC Comment DIFF FINAL Differential Comment Total Protein 5.4 Albumin 2.8 Alkaline Phosphatase 88 Aspartate Amino Transf (AST/SGOT) 14 Alanine Aminotransferase (ALT/SGPT) 14 Total Bilirubin 0.2 Imaging Last Impressions Chest X-Ray 11/02/17 0000 Signed Impressions: CONCLUSION: ET tube in good position. No pneumothorax. Abdomen/Pelvis CT 11/02/17 0000 Signed Impressions: CONCLUSION: 1. Bibasilar consolidating airspace disease. 2. No evidence of acute intestinal abnormality. 3. Morales catheter in place. 4. Status post lumbosacral fusion. Physical Exam HEENT: Angioedema CHEST: Respirations synchronized with vent via ETT CARDIAC: RRR ABDOMEN: Soft, nondistended, bowel sounds active, OG clamped SKIN: Normal; no rash; no jaundice. DISPATCH OFFICER: Sedated (Daniela Borden) Assessment and Plan Plan Assessment: - BRBPR- independent of BM, started last night, no previous hx of this. No NSAIDs, no alcohol, no blood thinners. Last colonoscopy 3 yrs ago, unsure of findings. CT abdomen and pelvis W IV contrast (11/02) --> Bibasilar consolidating airspace disease. No evidence of acute intestinal abnormality. Morales catheter in placed. Status post lumbosacral fusion. Colonoscopy (11/03) --> 3 small to medium size polyps, mild diverticulosis of the descending colon. Most likely cause of bleed noted to be probably diverticular. - Angioedema- Intubated for airway protection - HX of DM, HTN per attending (11/04) Last blood transfusion 2 days ago, H/H has remained stable over night. Discussed with RN Deepthi, she states no continued rectal bleeding. Plan: - OK to start TF - Nutritional consult - Colonoscopy biopsy pending - Monitor H/H - Notify GI if any active bleeding - If continued bleeding may consider IR for angiogram with embolization - GI will sign off, please reconsult as needed - Have pt follow up with GI after discharge Pt has been seen and examined by myself and Dr. Boone and this note is written on his behalf (Daniela Borden) Physician Comments Seen and examined with CLARENCE, sedated/intubated. S/p colonoscopy. No bleeding at this time. Consider bleeding scan and embolization if rebleeds. GI will sign off. Thank you (Miryam Boone MD) Daniela Borden November 04, 2017 09:23 Miryam Boone MD November 04, 2017 13:51
[2017-11-04 13:20] LABS: HEMATOCRIT 26.2 % (35.0-46.0); HEMOGLOBIN 8.2 GM/DL (11.6-15.3)
[2017-11-04] MEDS: PROPOFOL 1000 MG/100 ML INJ 100 ML IV PRN ×3 (15:10→22:51)
--- NOTE | 2017-11-04 15:40 | HHI.CCPN ---
Subjective Remarks/Hospital Course 11/02: 57-year-old female who presented to the ER after she noticed rectal bleeding around 1 AM along with diarrhea. Patient previously has had a colonoscopy 3 years ago at which time she had a benign polyp resected. She is not on any anticoagulation. Patient was accepted for admission by hospitalist service however while in the ER this morning around 8:30 AM patient was noted to have swelling of her tongue. Dr. Santiago evaluated patient in the ER and subsequently called me as he felt patient had developed angioedema and needed to be admitted to the ICU. Patient did receive IV Pepcid and Solu-Medrol as well as Benadryl in the ER. She was having a little difficulty with her speech however appear to be breathing comfortably. Her tongue swelling remained about the same and I came down to evaluate the patient in the ER. Anesthesia had already been called as it was felt patient needed to be intubated for airway protection. When I evaluated the patient in the ER she was resting in the ER stretcher with significant tongue swelling however no stridor. Anesthesia decided to take patient to the OR for intubation with surgical backup for tracheostomy if needed. Dr. Abdul had already been contacted by ER physician and was in the ER as well at the time of my evaluation. Patient was being taken to the OR for fiberoptic intubation by anesthesia and will be admitted to the ICU following the intubation. She does have a history of CAD, diabetes mellitus and hypertension. Patient has also been evaluated by GI. 11/03: Remains sedated, orally intubated on mechanical ventilation. On and off levo fed 1 kylah per minute currently. Received 1 unit PRBCs yesterday. Tongue swelling persists. Awaiting colonoscopy by GI. 11/04: Sedated, arousable, orally intubated on mechanical ventilation. Underwent colonoscopy yesterday. Polyps removed. Possible diverticular bleed. Tongue swelling improving. Objective Vital Signs Date Time Temp Pulse Resp B/P (MAP) Pulse Ox O2 Delivery O2 Flow Rate FiO2 11/04/17 14:00 77 11/04/17 12:00 40 11/04/17 12:00 98.7 10 165/87 (113) 100 138/65 (89) 11/02/17 09:15 Nasal Cannula 2.00 Intake and Output 11/04/17 11/04/17 11/05/17 08:00 16:00 00:00 Intake Total 1580 ml 1300 ml Output Total 450 ml Balance 1130 ml 1300 ml Result Diagram: 11/04/17 1255 11/04/17 0545 Imaging Chest x-ray pending Objective Remarks HEENT/ Neuro: Sedated, orally intubated, Pallor present, no icterus, tongue swelling persists. Neck: No JVD Chest/Pulm: on mech vent, good air entry bilaterally, no wheezing or crackles CVS: S1-S2 regular, no murmur GI/abdomen: soft, nontender, bowel sounds sluggish Extremities: warm bilaterally, no edema A/P Assessment and Plan 57-year-old female with: Rectal bleeding Angioedema (most likely related to lisinopril use) Diabetes mellitus Hypertension CAD Hyperkalemia Plan: Neuro: Keep patient sedated with versed/fentanyl gtt, Versed as needed. Daily sedation vacation. Follow neuro status Cardiovascular: IV hydration, watch for hypotension. Hold antihypertensives at this time. Levophed for pressor support as needed Pulmonary: Patient intubated for airway protection by anesthesia using a glide scope. Placed on mechanical ventilation, vent bundle, bronchodilators. Will await decrease in angioedema prior to initiating CPAP trials. Ordered Decadron , Pepcid, Benadryl IV for angioedema. GI/liver: N.p.o. GI consulted for rectal bleeding. CT abdomen pelvis unremarkable. Colonoscopy done on 11/03, polyps removed. Possible diverticular bleeding though not active during colonoscopy. Renal/: IV hydration, strict intake output, monitor and replete electrodes, follow BUN creatinine. Hyperkalemia noted. Received glucose insulin bicarb and calcium, Kayexalate. Heme: Follow CBC and coags. Transfuse to keep hemoglobin above 8 g percent. Endocrine: SSI for glycemic control Prophylaxis: Pepcid/SCDs. No Lovenox in view of GI bleed. Further recommendations per GI Condition critical. Time spent on critical care excluding procedures 30 minutes Zachary Martinez MD November 04, 2017 15:40
[2017-11-05] VITALS (36 sets, daily range): BP systolic 100–207; BP diastolic 66–107; PULSE 70–133; RESP 0–29; TEMP 98–99; O2SAT 99–100
[2017-11-05] MEDS: DEXAMETHASONE SOD PHOS 4 MG/ML VIAL IV PUSH SCH ×4 (00:43→18:42)
[2017-11-05] MEDS: PROPOFOL 1000 MG/100 ML INJ 100 ML IV PRN ×3 (02:23→08:49)
[2017-11-05] MEDS: fentaNYL DRIP 250 ML IV PRN (03:30)
[2017-11-05] MEDS: SODIUM CHLOR 0.9% 1000 ML INJ 1,000 ML IV SCH ×3 (03:31→20:00)
[2017-11-05] MEDS: diphenhydrAMINE HCL 50 MG/ML VIAL IV PUSH SCH ×5 (03:31→20:44)
[2017-11-05] MEDS: RESP: ALBUTEROL 2.5 MG/IPRATROPIUM 0.5 MG NEB (SCH) NEB ×3 (03:46→22:01)
[2017-11-05] MEDS: CHLORHEXIDINE GLUCONATE 2 % 1 PACK (2 CLOTHS) TOP SCH (04:00)
[2017-11-05] MEDS: INSULIN ASPART SUPPLEMENTAL SCALE SQ SCH ×4 (06:20→21:00)
[2017-11-05] MEDS: CHLORHEXIDINE 0.12% (ORAL KIT) 15 ML CUP MT SCH ×2 (08:00→20:00)
[2017-11-05] MEDS: SODIUM CHLORIDE 0.9% FLUSH 10 ML FLUSH IV FLUSH SCH ×2 (08:49→20:44)
[2017-11-05] MEDS: FAMOTIDINE 20 MG/2 ML VIAL IV PUSH SCH ×2 (08:49→20:44)
[2017-11-05] MEDS: DOCUSATE SODIUM 50 MG/SENNA 8.6 MG TAB PO SCH ×2 (09:00→21:00)
[2017-11-05] MEDS ORDERED: LORazepam 2 MG/ML VIAL IV PUSH ONE (10:15)
[2017-11-05] MEDS ORDERED: LABETALOL HCL 100 MG/20 ML VIAL IV PUSH ONE ×2 (10:15)
[2017-11-05] MEDS ORDERED: LABETALOL HCL 20 MG/4 ML VIAL IV PUSH ONE (10:15)
[2017-11-05] MEDS: ALLOPURINOL 300 MG TAB PO SCH (12:30)
[2017-11-05] MEDS: CYCLOBENZAPRINE HCL 10 MG TAB PO SCH (12:30)
[2017-11-05] MEDS: METOPROLOL TARTRATE 50 MG TAB PO SCH ×2 (12:30→21:00)
[2017-11-05] MEDS: ISOSORBIDE MONONITRATE 30 MG CR TAB (IMDUR) PO SCH (12:30)
[2017-11-05] MEDS ORDERED: GABAPENTIN 400 MG CAP PO PRN (12:30)
[2017-11-05] MEDS: HYDROCHLOROTHIAZIDE 12.5 MG CAP PO SCH (12:30)
[2017-11-05] MEDS ORDERED: ACETAMINOPHEN/HYDROcodone 325 MG/10 MG TAB PO PRN (12:30)
[2017-11-05] MEDS ORDERED: NITROGLYCERIN 0.4 MG SL 25 TABS/BTL SL PRN (12:30)
--- NOTE | 2017-11-05 12:34 | HHI.CCPN ---
Subjective Remarks/Hospital Course 11/02: 57-year-old female who presented to the ER after she noticed rectal bleeding around 1 AM along with diarrhea. Patient previously has had a colonoscopy 3 years ago at which time she had a benign polyp resected. She is not on any anticoagulation. Patient was accepted for admission by hospitalist service however while in the ER this morning around 8:30 AM patient was noted to have swelling of her tongue. Dr. Santiago evaluated patient in the ER and subsequently called me as he felt patient had developed angioedema and needed to be admitted to the ICU. Patient did receive IV Pepcid and Solu-Medrol as well as Benadryl in the ER. She was having a little difficulty with her speech however appear to be breathing comfortably. Her tongue swelling remained about the same and I came down to evaluate the patient in the ER. Anesthesia had already been called as it was felt patient needed to be intubated for airway protection. When I evaluated the patient in the ER she was resting in the ER stretcher with significant tongue swelling however no stridor. Anesthesia decided to take patient to the OR for intubation with surgical backup for tracheostomy if needed. Dr. Abdul had already been contacted by ER physician and was in the ER as well at the time of my evaluation. Patient was being taken to the OR for fiberoptic intubation by anesthesia and will be admitted to the ICU following the intubation. She does have a history of CAD, diabetes mellitus and hypertension. Patient has also been evaluated by GI. 11/03: Remains sedated, orally intubated on mechanical ventilation. On and off levo fed 1 kylah per minute currently. Received 1 unit PRBCs yesterday. Tongue swelling persists. Awaiting colonoscopy by GI. 11/04: Sedated, arousable, orally intubated on mechanical ventilation. Underwent colonoscopy yesterday. Polyps removed. Possible diverticular bleed. Tongue swelling improving. 11/05: Extubated following CPAP trial as tongue swelling seems to have resolved. Elevated blood pressure noted. Objective Vital Signs Date Time Temp Pulse Resp B/P (MAP) Pulse Ox O2 Delivery O2 Flow Rate FiO2 11/05/17 09:55 99 Room Air 4 11/05/17 08:22 30 11/05/17 06:00 70 11/05/17 05:00 12 156/67 (96) 11/05/17 04:00 98.2 Intake and Output 11/05/17 11/05/17 11/06/17 08:00 16:00 00:00 Output Total 600 ml Balance -600 ml Result Diagram: 11/04/17 1255 11/04/17 0545 Imaging Chest x-ray pending Objective Remarks HEENT/ Neuro: Awake and alert. Agitated at times, Pallor present, no icterus, tongue swelling resolved Neck: No JVD Chest/Pulm: ogood air entry bilaterally, no wheezing or crackles CVS: S1-S2 regular, no murmur GI/abdomen: soft, nontender, bowel sounds sluggish Extremities: warm bilaterally, no edema A/P Assessment and Plan 57-year-old female with: Rectal bleeding Angioedema (most likely related to lisinopril use) Diabetes mellitus Hypertension CAD Hyperkalemia Plan: Neuro: Sedation stopped, extubated following CPAP trial. Follow neuro status Cardiovascular: IV hydration, off pressors. Resuming antihypertensives. Lisinopril discontinued due to angioedema which is now resolved. Pulmonary: Patient intubated for airway protection by anesthesia using a glide scope. Placed on mechanical ventilation, vent bundle, bronchodilators. Extubated following CPAP trials on 11/05, tolerating nasal cannula. On Decadron , Pepcid, Benadryl IV for angioedema-we will discontinue IV Decadron and start prednisone 20 mg p.o. daily. GI/liver: GI consulted for rectal bleeding. CT abdomen pelvis unremarkable. Colonoscopy done on 11/03, polyps removed. Possible diverticular bleeding though not active during colonoscopy. Advance diet as tolerated Renal/: IV hydration, strict intake output, monitor and replete electrodes, follow BUN creatinine. Hyperkalemia noted. Received glucose insulin bicarb and calcium, Kayexalate. Heme: Follow CBC and coags. Transfuse to keep hemoglobin above 8 g percent. Endocrine: SSI for glycemic control Prophylaxis: Pepcid/SCDs. No Lovenox in view of GI bleed. Further recommendations per GI Patient tolerating extubation. Will consult and transfer to hospitalist service starting 11/06 for further medical management. Lisinopril discontinued due to angioedema. Zachary Martinez MD November 05, 2017 12:34
[2017-11-05] MEDS: LABETALOL HCL 100 MG/20 ML VIAL IV PUSH PRN ×2 (16:04→20:45)
[2017-11-05] MEDS: LORazepam 2 MG/ML VIAL IV PUSH PRN ×2 (16:04→20:50)
[2017-11-05] MEDS: AMITRIPTYLINE HCL 25 MG TAB PO SCH (21:00)
[2017-11-06] VITALS (15 sets, daily range): BP systolic 160–218; BP diastolic 72–101; PULSE 73–88; RESP 19–22; TEMP 97.8–99.4; O2SAT 93–100
[2017-11-06] MEDS: DEXAMETHASONE SOD PHOS 4 MG/ML VIAL IV PUSH SCH ×5 (00:24→23:06)
[2017-11-06] MEDS: diphenhydrAMINE HCL 50 MG/ML VIAL IV PUSH SCH ×6 (00:24→22:58)
[2017-11-06] MEDS: LORazepam 2 MG/ML VIAL IV PUSH PRN ×4 (01:22→18:12)
[2017-11-06] MEDS: LABETALOL HCL 100 MG/20 ML VIAL IV PUSH PRN ×6 (01:23→12:20)
[2017-11-06] MEDS ORDERED: NITROGLYCERIN 2% OINT 1 GM PACKET TOPICAL PRN (02:00)
[2017-11-06] MEDS: CHLORHEXIDINE GLUCONATE 2 % 1 PACK (2 CLOTHS) TOP SCH (03:43)
[2017-11-06] MEDS: RESP: ALBUTEROL 2.5 MG/IPRATROPIUM 0.5 MG NEB (SCH) NEB ×2 (04:24→07:52)
[2017-11-06] MEDS: SODIUM CHLOR 0.9% 1000 ML INJ 1,000 ML IV SCH (06:00)
--- NOTE | 2017-11-06 07:13 | RADRPT ---
EXAM DATE: 11/06/2017 7:04 AM EDT AGE/SEX: 57 years / Female INDICATIONS: Short of breath. Dobhoff placed. CLINICAL DATA: This is the patient's subsequent encounter. Patient reports that signs and symptoms h ave been present for 4 - 6 days and indicates a pain score of 0/10. MEDICAL/SURGICAL HISTORY: Non-responsive. Non-responsive. COMPARISON: [facility] – [place], CHEST SINGLE AP, 11/02/2017. . FINDINGS: A Dobbhoff feeding tube is noted below the diaphragm but its tip is not visualized on this examinatio n. Patchy infiltrates are noted bilaterally consistent with moderate pulmonary edema versus pneumonia . Clinical correlation is recommended. The heart is mildly prominent. CONCLUSION: 1. Dobbhoff feeding tube is noted below the diaphragm but its tip is not visualized on this examinat ion. 2. Bilateral patchy infiltrates consistent with moderate pulmonary edema versus pneumonia. Clinical correlation is recommended. 3. Mild cardiomegaly. Electronically signed by: Sabino Tijerina MD 11/06/2017 7:12 AM EDT
[2017-11-06] MEDS: CHLORHEXIDINE 0.12% (ORAL KIT) 15 ML CUP MT SCH ×2 (08:00→20:00)
[2017-11-06] MEDS ORDERED: cloNIDine HCL 0.2 MG/24 HR PATCH T-DERMAL SCH (08:00)
[2017-11-06] MEDS: INSULIN ASPART SUPPLEMENTAL SCALE SQ SCH ×4 (08:00→21:00)
[2017-11-06] MEDS ORDERED: cloNIDine HCL 0.1 MG TAB PO PRN (08:00)
[2017-11-06] MEDS: SODIUM CHLORIDE 0.9% FLUSH 10 ML FLUSH IV FLUSH SCH ×2 (09:00→21:00)
[2017-11-06] MEDS: DOCUSATE SODIUM 50 MG/SENNA 8.6 MG TAB PO SCH ×2 (09:00→21:00)
[2017-11-06] MEDS: hydrALAZINE HCL 100 MG TAB DOBHOFF SCH ×3 (10:00→22:00)
[2017-11-06] MEDS: FAMOTIDINE 20 MG/2 ML VIAL IV PUSH SCH ×2 (10:13→21:00)
[2017-11-06] MEDS: ISOSORBIDE MONONITRATE 30 MG CR TAB (IMDUR) PO SCH (10:13)
[2017-11-06] MEDS: HYDROCHLOROTHIAZIDE 12.5 MG CAP PO SCH (10:14)
[2017-11-06] MEDS: ASPIRIN EC 81 MG TABEC PO SCH (10:14)
[2017-11-06] MEDS: CYCLOBENZAPRINE HCL 10 MG TAB PO SCH (10:14)
[2017-11-06] MEDS: ALLOPURINOL 300 MG TAB PO SCH (10:14)
[2017-11-06] MEDS: METOPROLOL TARTRATE 50 MG TAB PO SCH ×2 (10:14→21:00)
[2017-11-06] MEDS: ATORVASTATIN 80 MG TAB PO SCH (10:21)
--- NOTE | 2017-11-06 11:02 | HHI.PR ---
Subjective Remarks This time restraints. Agitated. Does not follow commands. Moves extremities without any problems. Objective Vitals Vital Signs Date Time Temp Pulse Resp B/P (MAP) Pulse Ox O2 Delivery O2 Flow Rate FiO2 11/06/17 07:53 100 21 11/06/17 06:00 75 11/06/17 04:23 100 Nasal Cannula 2.00 11/06/17 04:00 78 11/06/17 04:00 98.0 78 21 186/101 (129) 100 183/95 (124) 11/06/17 02:00 80 11/06/17 00:00 97.8 88 20 201/96 (131) 100 11/06/17 00:00 88 11/05/17 22:00 85 11/05/17 20:00 98 11/05/17 20:00 98.6 98 21 100/85 (90) 99 11/05/17 18:00 88 11/05/17 16:00 98.6 91 9 207/107 (140) 176/81 (112) 11/05/17 16:00 91 11/05/17 14:00 100 11/05/17 12:00 99.0 102 12 180/93 (122) 150/78 (102) 11/05/17 12:00 102 I/O 11/05/17 11/05/17 11/05/17 11/06/17 11/06/17 11/06/17 07:00 15:00 23:00 07:00 15:00 23:00 Intake Total 0 ml Output Total 1200 ml 1750 ml 5550 ml Balance -1200 ml -1750 ml -5550 ml Intake Oral 0 ml Output Urine Total 1200 ml 1750 ml 5550 ml # Bowel Movements 0 0 0 Result Diagram: 11/04/17 1255 11/04/17 0545 Imaging Last Impressions Chest X-Ray 11/06/17 0700 Signed Impressions: CONCLUSION: 1. Dobbhoff feeding tube is noted below the diaphragm but its tip is not visua lized on this examination. 2. Bilateral patchy infiltrates consistent with moderate pulmonary edema versu s pneumonia. Clinical correlation is recommended. 3. Mild cardiomegaly. Abdomen/Pelvis CT 11/02/17 0000 Signed Impressions: CONCLUSION: 1. Bibasilar consolidating airspace disease. 2. No evidence of acute intestinal abnormality. 3. Morales catheter in place. 4. Status post lumbosacral fusion. Objective Remarks General appearance: Awake and alert, agitated, and soft restraints. Skin: pale. Neck: No JVD. HEENT: No icterus, tongue swelling resolved Respiratory: Good air entry bilaterally, no wheezing or crackles CVS: S1-S2 regular, no murmur Abdomen: soft, nontender, bowel sounds sluggish Extremities: warm bilaterally, no edema Neuro: Awake and alert. Agitated at times. Doesn.t follow commands. Moves extremities. A/P Assessment and Plan 57-year-old female with: Rectal bleeding Angioedema (most likely related to lisinopril use). Lisinopril discontinued due to angioedema. Diabetes mellitus Hypertension CAD Hyperkalemia Successful extubated Resuming antihypertensives. Lisinopril discontinued due to angioedema which is now resolved. GI consulted for rectal bleeding. CT abdomen pelvis unremarkable. Colonoscopy done on 11/03, polyps removed. Possible diverticular bleeding though not active during colonoscopy. Advance diet as tolerated IV hydration, strict intake output, monitor and replete electrodes, follow BUN creatinine. Hyperkalemia noted. Received glucose insulin bicarb and calcium, Kayexalate. Follow CBC and coags. Transfuse to keep hemoglobin above 8 g percent. SSI for glycemic control. Patient is agitated in restraints. Dubhoff for med administration/ Will also do swallow eval /Cionsult ST Start seroquel. GI/DVT Prophylaxis: Pepcid/SCDs. No Lovenox in view of GI bleed. DC plan pending improvement. Agitated, in restraints, doesn't follow commands. Livier Montiel MD November 06, 2017 11:02
[2017-11-06] MEDS: QUEtiapine FUMARATE 25 MG TAB PO SCH (12:19)
--- NOTE | 2017-11-06 16:39 | PD.CONS ---
HPI Service Nephrology Consult Requested By Dr. Martinez Reason for Consult Uncontrolled hypertension Primary Care Physician CLARENCE Nava History of Present Illness The patient is a 57 yo AA female who presented to this facility on 11/02 with complaints of rectal bleeding and diarrhea. She subsequently was noted to have a swelling tongue and there was concern of angioedema from Lisinopril. She was intubated and placed in the ICU for observation. She was successfully extubated on 11/05. She remains obtunded and is off all sedating medications. We have been consulted for uncontrolled hypertension. All home medications were restarted this AM and her BP has remained significantly elevated with a MAP >100. The patient is obtunded and there is no family present. All records obtained thru previous notes (Ashley Fisher) Review of Systems ROS Limitations: Altered Mental Status (Ashley Fisher) Past Family Social History Allergies: Coded Allergies: penicillin G (Unverified Allergy, Severe, ANAPHALAXIS, 11/02/17) lisinopril (Verified Adverse Reaction, Severe, angioedema, 11/05/17) Past Medical History CAD DM HTN Tachycardia HLD Hx of hypokalemia Past Surgical History Cardiac cath Colonoscopy PTCA x4 Uterine Fibroid Removal Lumbar Fusion Hysterectomy Lumpectomy Reported Medications Hydrocodone-Acetaminophen 10-325 mg Tab 1 Tab PO Q8HR PRN Flexeril (Cyclobenzaprine HCl) 10 Mg Tab 10 Mg PO DAILY Metformin (Metformin HCl) 500 Mg Tab 500 Mg PO BIDPC Allopurinol 300 Mg Tab 300 Mg PO DAILY Isosorbide Mononitrate ER (Isosorbide Mononitrate) 30 Mg Leah 30 Mg PO DAILY Aspir-Low (Aspirin) 81 Mg Tabdr 1 Tab PO DAILY Amitriptyline (Amitriptyline HCl) 25 Mg Tab 25 Mg PO HS Metoprolol Tartrate 50 Mg Tab 50 Mg PO BID Hydrochlorothiazide 12.5 Mg Tab 12.5 Mg PO DAILY Zantac (Ranitidine HCl) 150 Mg Tab 150 Mg PO BID Nitroglycerin SL (Nitroglycerin) 0.4 Mg Subl 0.4 Mg SL DIRECTED PRN Atorvastatin (Atorvastatin Calcium) 80 Mg Tab 80 Mg PO DAILY Gabapentin 800 Mg Tab 800 Mg PO DIRECTED PRN Active Ordered Medications Current Medications Medications (Trade) Dose Ordered Sig/Taty Route Start Time Stop Time Status Last Admin (D50w (Vial) Inj) 50 ml UNSCH PRN IV PUSH 11/02/17 06:15 (Glucagon Inj) 1 mg UNSCH PRN OTHER 11/02/17 06:15 (NovoLOG SUPPLEMENTAL SCALE) 1 ACHS SLIDING SCALE SQ 11/02/17 08:00 11/02/17 21:26 (NS Flush) 2 ml UNSCH PRN IV FLUSH 11/02/17 06:15 11/04/17 08:14 (NS Flush) 2 ml BID IV FLUSH 11/02/17 09:00 11/06/17 09:00 (Reglan Inj) 5 mg Q6H PRN IV PUSH 11/02/17 06:15 (Ai-Colace) 1 tab BID PO 11/02/17 09:00 11/02/17 20:11 (Milk Of Magnesia Liq) 30 ml Q12H PRN PO 11/02/17 06:15 (Senokot) 17.2 mg Q12H PRN PO 11/02/17 06:15 (Dulcolax Supp) 10 mg DAILY PRN RECTAL 11/02/17 06:15 (Lactulose Liq) 30 ml DAILY PRN PO 11/02/17 06:15 (Peridex 0.12% Liq) 15 ml BID@08,20 MT 11/02/17 20:00 11/06/17 08:00 ([facility] [place] Nursing Information) 1 Q361D XX 11/02/17 10:30 11/02/17 10:30 (Chlorhexidine 2% Cloth) 3 pack Taper DAILY@04 TOP 11/03/17 04:00 10/30/18 03:59 11/06/17 03:43 (Chlorhexidine 2% Cloth) 3 pack UNSCH PRN TOP 11/02/17 10:30 (Versed Inj) 2 mg Q2HR PRN IV PUSH 11/02/17 10:30 11/03/17 16:19 (Pepcid Inj) 20 mg Q12HR IV PUSH 11/02/17 19:30 11/06/17 10:13 (Benadryl Inj) 25 mg Q4H IV PUSH 11/02/17 11:00 11/06/17 12:20 (Decadron Inj) 4 mg Q6HR IV PUSH 11/02/17 12:00 11/06/17 12:19 Sodium Chloride 1,000 ml @ 100 mls/hr Q10H IV 11/03/17 08:00 11/05/17 03:31 (Ativan Inj) 2 mg Q4H PRN IV PUSH 11/05/17 14:00 11/06/17 12:19 (Zyloprim) 300 mg DAILY PO 11/05/17 12:30 11/06/17 10:14 (Elavil) 25 mg HS PO 11/05/17 21:00 (Ecotrin Ec) 81 mg DAILY PO 11/06/17 09:00 11/06/17 10:14 (Lipitor) 80 mg DAILY PO 11/06/17 09:00 11/06/17 10:21 (Flexeril) 10 mg DAILY PO 11/05/17 12:30 11/06/17 10:14 (Neurontin) 800 mg Q8HR PRN PO 11/05/17 12:30 (Microzide) 12.5 mg DAILY PO 11/05/17 12:30 11/06/17 10:14 (Priddy 10-325 Mg) 1 tab Q8HR PRN PO 11/05/17 12:30 (Imdur) 30 mg DAILY PO 11/05/17 12:30 11/06/17 10:13 (Lopressor) 50 mg BID PO 11/05/17 12:30 11/06/17 10:14 (Nitrostat Sl) 0.4 mg Q4HR PRN SL 11/05/17 12:30 (Trandate Inj) 20 mg Q1H PRN IV PUSH 11/06/17 02:00 11/06/17 12:20 (Nitroglycerin 2% Oint) 1 inch Q6HR PRN TOPICAL 11/06/17 02:00 11/06/17 02:08 (Apresoline) 100 mg Q8HR DOBHOFF 11/06/17 06:00 11/06/17 12:19 (Catapres-Tts 0.2 Mg Patch.7d) 1 patch Q7D T-DERMAL 11/06/17 08:00 11/06/17 10:12 (Catapres) 0.1 mg Q6H PRN PO 11/06/17 08:00 Miscellaneous Information 1 Q7D T-DERMAL 11/13/17 08:00 (SEROquel) 25 mg BID@09,12 PO 11/06/17 12:00 11/06/17 12:19 Family History Not obtainable 2/2 to clinical condition Social History Not obtainable 2/2 to clinical condition (Ashley Fisher) Physical Exam Vital Signs Vital Signs Date Time Temp Pulse Resp B/P (MAP) Pulse Ox O2 Delivery O2 Flow Rate FiO2 11/06/17 16:00 75 11/06/17 16:00 98.0 11/06/17 14:00 75 11/06/17 12:00 78 11/06/17 12:00 99.0 78 19 191/83 (119) 100 178/73 (108) 11/06/17 10:00 73 11/06/17 08:00 98.4 77 19 218/91 (133) 100 186/84 (118) 11/06/17 08:00 77 11/06/17 07:53 100 21 11/06/17 06:00 75 11/06/17 04:23 100 Nasal Cannula 2.00 11/06/17 04:00 78 11/06/17 04:00 98.0 78 21 186/101 (129) 100 183/95 (124) 11/06/17 02:00 80 11/06/17 00:00 97.8 88 20 201/96 (131) 100 11/06/17 00:00 88 11/05/17 22:00 85 11/05/17 20:00 98 11/05/17 20:00 98.6 98 21 100/85 (90) 99 11/05/17 18:00 88 Physical Exam GENERAL: Laying in bed. Eyes open, but does not respond. SKIN: Warm and dry. HEAD: Atraumatic. Normocephalic. EYES: Pupils equal and round. No scleral icterus. No injection or drainage. ENT: No nasal bleeding or discharge. Mucous membranes pink and moist. Dobbhoff tube present NECK: Trachea midline. No JVD. CARDIOVASCULAR: RRR RESPIRATORY: No accessory muscle use. Clear to auscultation. Breath sounds equal bilaterally. GASTROINTESTINAL: Abdomen soft, non-tender, nondistended. Hepatic and splenic margins not palpable. MUSCULOSKELETAL: Extremities without clubbing, cyanosis, or edema. No obvious deformities. NEUROLOGICAL: Awake, but no responding to questions. PSYCHIATRIC: Eyes open, not responding (Ashley Fisher) Result Diagram: 11/04/17 1255 11/04/17 0545 Imaging Last Impressions Chest X-Ray 11/06/17 0700 Signed Impressions: CONCLUSION: 1. Dobbhoff feeding tube is noted below the diaphragm but its tip is not visua lized on this examination. 2. Bilateral patchy infiltrates consistent with moderate pulmonary edema versu s pneumonia. Clinical correlation is recommended. 3. Mild cardiomegaly. Abdomen/Pelvis CT 11/02/17 0000 Signed Impressions: CONCLUSION: 1. Bibasilar consolidating airspace disease. 2. No evidence of acute intestinal abnormality. 3. Morales catheter in place. 4. Status post lumbosacral fusion. (Ashley Fisher) Assessment and Plan Problem List: (1) Uncontrolled hypertension ICD Codes: I10 - Essential (primary) hypertension Plan: Appears that she has uncontrolled hypertension for some years according to previous notes. Will screen for secondary causes of hypertension. Continue on all currently antihypertensives Start on Nifedipine 30mg BID We have working room on HCTZ and Metoprolol if needed Would avoid all ACEi and ARBs given her recent angioedema Consider addition of Doxazosin (2) Hypernatremia ICD Codes: E87.0 - Hyperosmolality and hypernatremia Plan: Change IVF to 1/2NS (3) Angioedema ICD Codes: T78.3XXA - Angioneurotic edema, initial encounter Status: Acute Plan: Resolved (4) DM (diabetes mellitus screen) ICD Codes: Z13.1 - Encounter for screening for diabetes mellitus Status: Chronic Plan: Management as per primary team (5) Anemia ICD Codes: D64.9 - Anemia, unspecified Status: Chronic Plan: With recent GIB Monitor H&H Check Fe panel (6) Pneumonia ICD Codes: J18.9 - Pneumonia, unspecified organism Status: Acute Plan: Pulmonary edema versus PNA on CXR. Will check 2D Echo (Ashley Fisher) Assessment and Plan Patient currently n.p.o. Will defer utilizing Procardia XL because unable to administer and change to short acting Procardia every 8 hourly. Subsequent conversion to Procardia XL when able. The exam, history, and the medical decision-making described in the above note were completed with the assistance of the DONNIE. I reviewed and agree with the findings presented. I attest that I had a [id number] encounter with the patient on the same day, and personally performed and documented my assessment and findings in the medical record. (Drake Polanco MD) Problem Qualifiers (1) Angioedema: Qualified Codes: T78.3XXA - Angioneurotic edema, initial encounter Ashley Fisher November 06, 2017 16:39 Drake Polanco MD November 06, 2017 18:04
[2017-11-06] MEDS: NIFEdipine 20 MG CAP PO SCH ×3 (18:11→22:59)
[2017-11-06] MEDS: SODIUM CHLOR 0.45% 1000 ML INJ 1,000 ML IV SCH (18:35)
[2017-11-06] MEDS ORDERED: NIFEdipine 30 MG SUSTAINED RELEASE TAB PO SCH (21:00)
[2017-11-06] MEDS: AMITRIPTYLINE HCL 25 MG TAB PO SCH (21:00)
[2017-11-06 22:48] LABS: HEMATOCRIT 31.5 % (35.0-46.0); HEMOGLOBIN 9.9 GM/DL (11.6-15.3); MEAN CELL VOLUME 77.3 FL (80.0-100.0); MEAN CORPUSCULAR HEMOGLOBIN 24.3 PG (27.0-34.0); MEAN CORPUSCULAR HGB CONC 31.4 % (32.0-36.0); MEAN PLATELET VOLUME 7.6 FL (7.0-11.0); PLATELET COUNT 266 TH/MM3 (150-450); RED BLOOD COUNT 4.08 MIL/MM3 (4.00-5.30); RED CELL DISTRIBUTION WIDTH 17.5 % (11.6-17.2); WHITE BLOOD COUNT 13.2 TH/MM3 (4.0-11.0)
[2017-11-06 22:59] LABS: % SATURATION IRON PROFILE 18.5 % (20-50); ALBUMIN 3.3 GM/DL (3.4-5.0); BICARBONATE 31.6 MEQ/L (21.0-32.0); BLOOD UREA NITROGEN 9 MG/DL (7-18); CALCIUM 8.9 MG/DL (8.5-10.1); CHLORIDE 99 MEQ/L (98-107); CREATININE 0.75 MG/DL (0.50-1.00); FERRITIN 866 NG/ML (8-252); GLOMERULAR FILTRATION RATE 96 ML/MIN (>89); GLUCOSE,RANDOM 131 MG/DL (74-106); IRON (FE) 42 MCG/DL (50-170); MAGNESIUM 1.7 MG/DL (1.5-2.5); PHOSPHORUS 2.3 MG/DL (2.5-4.9); SODIUM (NA) 141 MEQ/L (136-145); TOTAL IRON BINDING CAPACITY 227 MCG/DL (250-450)
[2017-11-06] MEDS ORDERED: POTASSIUM PHOSPHATE INJ 30 MMOL in SODIUM CHLOR 0.9% 250 ML INJ 250 ML IV ONE (23:45)
[2017-11-07] VITALS (12 sets, daily range): BP systolic 125–191; BP diastolic 60–89; PULSE 64–83; RESP 20–29; TEMP 98.2–99.2; O2SAT 100
[2017-11-07] MEDS: POTASSIUM CHLOR 20 MEQ PREMIX 100 ML IV SCH ×2 (00:47→02:22)
[2017-11-07] MEDS: LABETALOL HCL 100 MG/20 ML VIAL IV PUSH PRN (02:22)
[2017-11-07] MEDS: CHLORHEXIDINE GLUCONATE 2 % 1 PACK (2 CLOTHS) TOP SCH (04:00)
[2017-11-07] MEDS: diphenhydrAMINE HCL 50 MG/ML VIAL IV PUSH SCH ×6 (04:35→22:32)
[2017-11-07] MEDS: NIFEdipine 20 MG CAP PO SCH ×2 (05:01→13:05)
[2017-11-07] MEDS: hydrALAZINE HCL 100 MG TAB DOBHOFF SCH ×3 (05:01→22:33)
[2017-11-07] MEDS: DEXAMETHASONE SOD PHOS 4 MG/ML VIAL IV PUSH SCH ×3 (05:01→17:08)
[2017-11-07] MEDS: SODIUM CHLOR 0.45% 1000 ML INJ 1,000 ML IV SCH ×2 (05:26→17:07)
[2017-11-07] MEDS: INSULIN ASPART SUPPLEMENTAL SCALE SQ SCH ×4 (08:00→19:57)
--- NOTE | 2017-11-07 08:13 | HHI.PR ---
Subjective Remarks BP uncontrolled. More awake and alert. No n/v/d/c. No headache or change in vision. Follows commands. Still in restraints as is still on /off confused at bedside. No fever or chills. Objective Vitals Vital Signs Date Time Temp Pulse Resp B/P (MAP) Pulse Ox O2 Delivery O2 Flow Rate FiO2 11/07/17 06:00 71 11/07/17 04:00 72 11/07/17 04:00 99.2 72 26 191/88 (122) 100 172/84 (113) 11/07/17 02:00 74 11/07/17 00:00 99.1 83 29 125/60 (81) 100 135/63 (87) 11/07/17 00:00 83 11/06/17 22:00 77 11/06/17 20:00 99.4 85 22 172/75 (107) 93 160/72 (101) 11/06/17 20:00 85 11/06/17 19:38 100 21 11/06/17 18:00 74 11/06/17 16:00 75 11/06/17 16:00 98.0 11/06/17 14:00 75 11/06/17 12:00 78 11/06/17 12:00 99.0 78 19 191/83 (119) 100 178/73 (108) 11/06/17 10:00 73 I/O 11/06/17 11/06/17 11/06/17 11/07/17 11/07/17 11/07/17 07:00 15:00 23:00 07:00 15:00 23:00 Intake Total 0 ml 0 ml 1200 ml Output Total 5550 ml 4150 ml 3450 ml Balance -5550 ml -4150 ml -2250 ml Intake Oral 0 ml 0 ml 0 ml IV Total 1200 ml Output Urine Total 5550 ml 4150 ml 3450 ml # Bowel Movements 0 0 0 Result Diagram: 11/06/17205511/06/172055 Imaging Last Impressions Chest X-Ray 11/06/17 07 Signed Impressions: CONCLUSION: 1. Dobbhoff feeding tube is noted below the diaphragm but its tip is not visua lized on this examination. 2. Bilateral patchy infiltrates consistent with moderate pulmonary edema versu s pneumonia. Clinical correlation is recommended. 3. Mild cardiomegaly. Abdomen/Pelvis CT 11/02/17 0000 Signed Impressions: CONCLUSION: 1. Bibasilar consolidating airspace disease. 2. No evidence of acute intestinal abnormality. 3. Morales catheter in place. 4. Status post lumbosacral fusion. Objective Remarks General appearance: Awake and alert, agitated, and soft restraints. Skin: pale. Neck: No JVD. HEENT: No icterus, tongue swelling resolved Respiratory: Good air entry bilaterally, no wheezing or crackles CVS: S1-S2 regular, no murmur Abdomen: soft, nontender, bowel sounds sluggish Extremities: warm bilaterally, no edema Neuro: Awake and alert. Agitated at times. Doesn.t follow commands. Moves extremities. A/P Assessment and Plan 57-year-old female with: Rectal bleeding Angioedema (most likely related to lisinopril use). Lisinopril discontinued due to angioedema. Diabetes mellitus Hypertension CAD Hyperkalemia Anemia microcytic Hypokalemia ICU electrolyte protocol Hyperkalemia on admission now with hypokalemia . Monitor and replace. Successful extubated Adjust antihypertensives as BP is uncontrolled. Increased HCTZ to 25 mg podaily and increase metoprolol to 75 mg po bid. Monitor BP and adjust meds as indicated. Lisinopril discontinued due to angioedema which is now resolved. GI consulted for rectal bleeding. CT abdomen pelvis unremarkable. Colonoscopy done on 11/03, polyps removed. Possible diverticular bleeding though not active during colonoscopy. Advance diet as tolerated IV hydration, strict intake output, monitor and replete electrodes, follow BUN creatinine. Hyperkalemia noted. Received glucose insulin bicarb and calcium, Kayexalate. Now with hypoklemia. Will check for refeeding sdr. Check mag and phos as well. Replace lytes per ICU protocol Follow CBC and coags. Transfuse to keep hemoglobin above 8 g percent. SSI for glycemic control. Patient is agitated in restraints. Dubhoff for med administration/ Will also do swallow eval /Consult ST Start seroquel. Check iron panel, ferritin, b12, folate GI/DVT Prophylaxis: Pepcid/SCDs. No Lovenox in view of GI bleed. Swallow evaluation DC plan pending improvement. Less agitated, in restraints. Discussed with the patient, nurse, family at bedside. Livier Montiel MD November 07, 2017 08:13
[2017-11-07] MEDS ORDERED: POTASSIUM PHOSPHATE MONOBASIC 500 MG TAB PO PRN (08:30)
[2017-11-07] MEDS ORDERED: MAGNESIUM SULFATE INJ 2 GM in SODIUM CHLORIDE 0.9% INJ 96 ML IV PRN (08:30)
[2017-11-07] MEDS ORDERED: MAGNESIUM SULFATE INJ 4 GM in SODIUM CHLORIDE 0.9% INJ 92 ML IV PRN (08:30)
[2017-11-07] MEDS ORDERED: POTASSIUM PHOSPHATE MONOBASIC 500 MG TAB PO/TUBE PRN (08:30)
[2017-11-07] MEDS ORDERED: POTASSIUM PHOSPHATE INJ 30 MMOL in SODIUM CHLOR 0.9% 250 ML INJ 250 ML IV PRN (08:30)
[2017-11-07] MEDS ORDERED: SODIUM PHOSPHATE INJ 30 MMOL in SODIUM CHLOR 0.9% 250 ML INJ 240 ML IV PRN (08:30)
[2017-11-07] MEDS ORDERED: POTASSIUM CHLOR 20 MEQ PREMIX 100 ML IV PRN (08:30)
[2017-11-07] MEDS ORDERED: POTASSIUM CHLORIDE 25 MEQ EFFERVESCENT TAB PO PRN (08:30)
[2017-11-07] MEDS ORDERED: MAGNESIUM OXIDE 400 MG TAB PO PRN (08:30)
[2017-11-07] MEDS ORDERED: POTASSIUM CHLOR 40 MEQ PREMIX 100 ML IV PRN ×2 (08:30)
[2017-11-07] MEDS: CHLORHEXIDINE 0.12% (ORAL KIT) 15 ML CUP MT SCH ×2 (08:35→20:00)
[2017-11-07] MEDS: FAMOTIDINE 20 MG/2 ML VIAL IV PUSH SCH ×2 (08:36→19:50)
[2017-11-07] MEDS: SODIUM CHLORIDE 0.9% FLUSH 10 ML FLUSH IV FLUSH SCH ×2 (08:36→19:50)
[2017-11-07] MEDS: ALLOPURINOL 300 MG TAB PO SCH (08:37)
[2017-11-07] MEDS: ASPIRIN EC 81 MG TABEC PO SCH (08:37)
[2017-11-07] MEDS: ISOSORBIDE MONONITRATE 30 MG CR TAB (IMDUR) PO SCH (08:37)
[2017-11-07] MEDS: QUEtiapine FUMARATE 25 MG TAB PO SCH ×2 (08:37→12:03)
[2017-11-07] MEDS: CYCLOBENZAPRINE HCL 10 MG TAB PO SCH (08:37)
[2017-11-07] MEDS: DOCUSATE SODIUM 50 MG/SENNA 8.6 MG TAB PO SCH ×2 (08:37→19:51)
[2017-11-07] MEDS: ATORVASTATIN 80 MG TAB PO SCH (08:37)
[2017-11-07] MEDS: METOPROLOL TARTRATE 25 MG TAB PO SCH ×2 (09:50→19:51)
[2017-11-07] MEDS: HYDROCHLOROTHIAZIDE 12.5 MG CAP PO SCH (09:50)
--- NOTE | 2017-11-07 13:44 | RADRPT ---
EXAM DATE: 11/07/2017 11:20 AM EDT AGE/SEX: 57 years / Female INDICATIONS: Hypertension. CLINICAL DATA: This is the patient's subsequent encounter. Patient reports that signs and symptoms h ave been present for 1 day and indicates a pain score of 0/10. MEDICAL/SURGICAL HISTORY: . [place]. Hypertension. COPD. GERD. Breast cancer. . Lumbar surgery and fusion. Cardiac catheterization. Cardiac stents. Coronary stent. Hysterectomy. COMPARISON: No prior [place] exams available for comparison. [facility]. CT Abdomen 2016-11-16 PEAK FLOW VELOCITIES: Aorta:__120 cm/s RIGHT RENAL ARTERY: Proximal:__132 cm/s Mid:__not seen Distal:__37.0 cm/s Renal Aortic Ratio:__1.1 Arcuate Artery Resistive Index: Upper -0.69, 0.67 Mid -0.63, 0.70 Lower -0.69, 0.67 LEFT RENAL ARTERY: Proximal:__82.1 cm/s Mid:__87.6 cm/s Distal:__21.7 cm/s at ostia Renal Aortic Ratio:__0.73 Arcuate Artery Resistive Index: Upper -0.66 Mid -0.71, 0.71 Lower -0.69, 0.66 MEASUREMENTS: Right Kidney:__ 9.8 x 4.5 x 5.0 cm Left Kidney:__ 9.9 x 4.6 x 4.9 cm FINDINGS: Renal Artery: Renal artery velocities and resistive indices are within normal limits. Right Kidney: Normal echogenicity without focal mass, stone or hydronephrosis. Left Kidney: Normal echogenicity without focal mass, stone or hydronephrosis. CONCLUSION: 1. No sonographic evidence for significant renal artery stenosis as questioned. 2. Unremarkable renal ultrasound examination. Electronically signed by: Adis Jimenez MD 11/07/2017 1:42 PM EDT
--- NOTE | 2017-11-07 18:17 | HHI.NPPN ---
Subjective History of Present Illness The patient is a 57 yo AA female who presented to this facility on 11/02 with complaints of rectal bleeding and diarrhea. She subsequently was noted to have a swelling tongue and there was concern of angioedema from Lisinopril. She was intubated and placed in the ICU for observation. She was successfully extubated on 11/05. She remains obtunded and is off all sedating medications. We have been consulted for uncontrolled hypertension. All home medications were restarted this AM and her BP has remained significantly elevated with a MAP >100. Interval History Pt alert and oriented today Still with Dobbhoff pending ST eval. Says she is hungry Reports very long hx of HTN, but overall no issues controlling in the past Sees Dr. Bell and underwent full cardiac eval about 1 month ago for clearance for upcoming C spine surgery (reports all tests were "good") (Ashley Fisher) Objective Data Data 11/07/17 11/08/17 19:00 07:00 Intake Total 360 ml Output Total 1550 ml Balance -1190 ml Intake Oral 0 ml IV Total 260 ml Other 100 ml Output Urine Total 1550 ml Gastric Drainage Total 0 ml # Bowel Movements 1 Vital Signs Date Time Temp Pulse Resp B/P (MAP) Pulse Ox O2 Delivery O2 Flow Rate FiO2 11/07/17 18:00 72 11/07/17 16:00 98.9 70 27 164/79 (107) 100 174/89 (117) 11/07/17 16:00 70 11/07/17 14:00 70 11/07/17 12:00 64 11/07/17 12:00 99.1 64 20 177/80 (112) 100 179/88 (118) 11/07/17 10:49 16 11/07/17 10:00 76 11/07/17 08:00 98.9 71 24 170/77 (108) 100 140/65 (90) 11/07/17 08:00 71 11/07/17 06:00 71 11/07/17 04:00 72 11/07/17 04:00 99.2 72 26 191/88 (122) 100 172/84 (113) 11/07/17 02:00 74 11/07/17 00:00 99.1 83 29 125/60 (81) 100 135/63 (87) 11/07/17 00:00 83 11/06/17 22:00 77 11/06/17 20:00 99.4 85 22 172/75 (107) 93 160/72 (101) 11/06/17 20:00 85 11/06/17 19:38 100 21 (Ashley Fisher) -: 11/06/17205511/06/172055 Imaging Last Impressions Renal Ultrasound 11/07/17 0000 Signed Impressions: CONCLUSION: 1. No sonographic evidence for significant renal artery stenosis as questioned . 2. Unremarkable renal ultrasound examination. Chest X-Ray 11/06/17 0700 Signed Impressions: CONCLUSION: 1. Dobbhoff feeding tube is noted below the diaphragm but its tip is not visua lized on this examination. 2. Bilateral patchy infiltrates consistent with moderate pulmonary edema versu s pneumonia. Clinical correlation is recommended. 3. Mild cardiomegaly. Abdomen/Pelvis CT 11/02/17 0000 Signed Impressions: CONCLUSION: 1. Bibasilar consolidating airspace disease. 2. No evidence of acute intestinal abnormality. 3. Morales catheter in place. 4. Status post lumbosacral fusion. Medication Review Current Medications Medications (Trade) Dose Ordered Sig/Taty Route Start Time Stop Time Status Last Admin (D50w (Vial) Inj) 50 ml UNSCH PRN IV PUSH 11/02/17 06:15 (Glucagon Inj) 1 mg UNSCH PRN OTHER 11/02/17 06:15 (NovoLOG SUPPLEMENTAL SCALE) 1 ACHS SLIDING SCALE SQ 11/02/17 08:00 11/02/17 21:26 (NS Flush) 2 ml UNSCH PRN IV FLUSH 11/02/17 06:15 11/04/17 08:14 (NS Flush) 2 ml BID IV FLUSH 11/02/17 09:00 11/07/17 08:36 (Reglan Inj) 5 mg Q6H PRN IV PUSH 11/02/17 06:15 (Ai-Colace) 1 tab BID PO 11/02/17 09:00 11/07/17 08:37 (Milk Of Magnesia Liq) 30 ml Q12H PRN PO 11/02/17 06:15 (Senokot) 17.2 mg Q12H PRN PO 11/02/17 06:15 (Dulcolax Supp) 10 mg DAILY PRN RECTAL 11/02/17 06:15 (Lactulose Liq) 30 ml DAILY PRN PO 11/02/17 06:15 (Peridex 0.12% Liq) 15 ml BID@08,20 MT 11/02/17 20:00 11/07/17 08:35 ([facility] [place] [facility] Information) 1 Q361D XX 11/02/17 10:30 11/02/17 10:30 (Chlorhexidine 2% Cloth) 3 pack Taper DAILY@04 TOP 11/03/17 04:00 10/30/18 03:59 11/07/17 04:00 (Chlorhexidine 2% Cloth) 3 pack UNSCH PRN TOP 11/02/17 10:30 (Versed Inj) 2 mg Q2HR PRN IV PUSH 11/02/17 10:30 11/03/17 16:19 (Pepcid Inj) 20 mg Q12HR IV PUSH 11/02/17 19:30 11/07/17 08:36 (Benadryl Inj) 25 mg Q4H IV PUSH 11/02/17 11:00 11/07/17 17:07 (Decadron Inj) 4 mg Q6HR IV PUSH 11/02/17 12:00 11/07/17 17:08 (Ativan Inj) 2 mg Q4H PRN IV PUSH 11/05/17 14:00 11/06/17 18:12 (Zyloprim) 300 mg DAILY PO 11/05/17 12:30 11/07/17 08:37 (Elavil) 25 mg HS PO 11/05/17 21:00 11/06/17 21:00 (Ecotrin Ec) 81 mg DAILY PO 11/06/17 09:00 11/07/17 08:37 (Lipitor) 80 mg DAILY PO 11/06/17 09:00 11/07/17 08:37 (Flexeril) 10 mg DAILY PO 11/05/17 12:30 11/07/17 08:37 (Neurontin) 800 mg Q8HR PRN PO 11/05/17 12:30 ([place] 10-325 Mg) 1 tab Q8HR PRN PO 11/05/17 12:30 11/07/17 09:49 (Imdur) 30 mg DAILY PO 11/05/17 12:30 11/07/17 08:37 (Nitrostat Sl) 0.4 mg Q4HR PRN SL 11/05/17 12:30 (Trandate Inj) 20 mg Q1H PRN IV PUSH 11/06/17 02:00 11/07/17 02:22 (Nitroglycerin 2% Oint) 1 inch Q6HR PRN TOPICAL 11/06/17 02:00 11/06/17 02:08 (Apresoline) 100 mg Q8HR DOBHOFF 11/06/17 06:00 11/07/17 13:05 (Catapres-Tts 0.2 Mg Patch.7d) 1 patch Q7D T-DERMAL 11/06/17 08:00 11/06/17 10:12 (Catapres) 0.1 mg Q6H PRN PO 11/06/17 08:00 11/07/17 01:54 Miscellaneous Information 1 Q7D T-DERMAL 11/13/17 08:00 (SEROquel) 25 mg BID@09,12 PO 11/06/17 12:00 11/07/17 12:03 Sodium Chloride 1,000 ml @ 84 mls/hr [id number] IV 11/06/17 16:45 11/07/17 17:07 (Procardia) 20 mg Q8HR PO 11/06/17 18:00 11/07/17 05:01 (Microzide) 25 mg DAILY PO 11/07/17 09:00 11/07/17 09:50 (Lopressor) 75 mg BID PO 11/07/17 09:00 11/07/17 09:50 Potassium Chloride 100 ml @ 50 mls/hr Q2H PRN IV 11/07/17 08:30 Potassium Chloride 100 ml @ 50 mls/hr Q2H PRN IV 11/07/17 08:30 (K-Lyte Cl Eff) 50 meq UNSCH PRN PO 11/07/17 08:30 Potassium Chloride 100 ml @ 25 mls/hr UNSCH PRN IV 11/07/17 08:30 Potassium Chloride 100 ml @ 50 mls/hr Q2H PRN IV 11/07/17 08:30 Magnesium Sulfate 4 gm/Sodium Chloride 100 ml @ 50 mls/hr UNSCH PRN IV 11/07/17 08:30 (Mag-Ox) 800 mg UNSCH PRN PO 11/07/17 08:30 Magnesium Sulfate 2 gm/Sodium Chloride 100 ml @ 50 mls/hr UNSCH PRN IV 11/07/17 08:30 (K-Phos) 2,000 mg Q4H PRN PO 11/07/17 08:30 Sodium Phosphate 30 mmol/Sodium Chloride 250 ml @ 42 mls/hr UNSCH PRN IV 11/07/17 08:30 (K-Phos) 2,000 mg UNSCH PRN PO/TUBE 11/07/17 08:30 Potassium Phosphate 30 mmol/ Sodium Chloride 260 ml @ 42 mls/hr UNSCH PRN IV 11/07/17 08:30 (Ashley Fisher) Physical Exam General Appearance: No Acute Distress, Comfortable (Ashley Fisher) Ears & Nose Ears & Nose Remarks Dobbhoff tube present (Ashley Fisher) Neck Neck Exam: Trachea Midline (Ashley Fisher) Pulmonary Resp Exam: Clear Bilaterally, Breath Sounds Equal (Ashley Fisher) Cardiology CV Exam: Regular, Normal Sinus Rhythm (Ashley Fisher) Gastrointestinal/Abdomen GI Exam: Soft, Non-Tender (Ashley Fisher) Integumentary Skin Exam: Clear, Warm (Ashley Fisher) Extremeties Extremities Exam: No Edema (Ashley Fisher) Neurologic Neuro Exam: Alert, Awake (Ashley Fisher) Psychiatric Psych Exam: Appropriate Responses (Ashley Fisher) Assessment/Plan Problem List: (1) Uncontrolled hypertension ICD Codes: I10 - Essential (primary) hypertension Plan: BP improving RN reports that BP very low when Procardia given thru Dobbhoff. Will decrease Procardia to 10mg q8h. Once she is cleared by ST, can convert to po Procardia XL 30mg Primary increased HCTZ to 25mg QD and Metoprolol to 75mg BID Given Clonidine po if needed. Renal doppler showed no evidence of AJAY. Additional screening tests are pending including metanephrines and catecholamines. Upon further evaluation, a CT abdomen in 2010 showed a 1.7cm left adrenal adenoma, but was not mentioned on CT 11/02/17. Pt unaware. (2) Hypernatremia ICD Codes: E87.0 - Hyperosmolality and hypernatremia Plan: Resolved. Once she can have po intake, can D/C IVF (3) Angioedema ICD Codes: T78.3XXA - Angioneurotic edema, initial encounter Status: Acute Plan: Resolved (4) DM (diabetes mellitus screen) ICD Codes: Z13.1 - Encounter for screening for diabetes mellitus Status: Chronic Plan: Management as per primary team (5) Anemia ICD Codes: D64.9 - Anemia, unspecified Status: Chronic Plan: H&H improving. Will defer iron supplement at the present as she has mildly elevated ferritin. (6) Hypokalemia ICD Codes: E87.6 - Hypokalemia Plan: Repletion as ordered by primary team (7) Vitamin D deficiency ICD Codes: E55.9 - Vitamin D deficiency, unspecified Plan: Start cholecalciferol (Ashley Fisher) Plan The exam, history, and the medical decision-making described in the above note were completed with the assistance of the PA-C. I reviewed and agree with the findings presented. (Drake Polanco MD) Problem Qualifiers (1) Angioedema: Qualified Codes: T78.3XXA - Angioneurotic edema, initial encounter Ashley Fisher November 07, 2017 18:17 Drake Polanco MD November 07, 2017 18:57
[2017-11-07] MEDS: CHOLECALCIFEROL (VIT D3) 1000 UNIT TAB PO SCH (18:30)
[2017-11-07] MEDS: AMITRIPTYLINE HCL 25 MG TAB PO SCH (19:51)
[2017-11-07 21:31] LABS: BICARBONATE 29.7 MEQ/L (21.0-32.0); CALCIUM 8.1 MG/DL (8.5-10.1); CREATININE 0.82 MG/DL (0.50-1.00); FOLATE 4.7 NG/ML (3.1-17.5); MAGNESIUM 1.7 MG/DL (1.5-2.5); PHOSPHORUS 3.1 MG/DL (2.5-4.9)
[2017-11-07] MEDS: POTASSIUM CHLOR 20 MEQ PREMIX 100 ML IV PRN (22:29)
[2017-11-07] MEDS: NIFEdipine 10 MG CAP PO SCH (22:33)
[2017-11-08] VITALS (7 sets, daily range): BP systolic 111–165; BP diastolic 55–76; PULSE 66–88; RESP 9–38; TEMP 99.1–100; O2SAT 94–98
[2017-11-08] MEDS: DEXAMETHASONE SOD PHOS 4 MG/ML VIAL IV PUSH SCH ×2 (00:10→05:51)
[2017-11-08] MEDS: POTASSIUM CHLOR 20 MEQ PREMIX 100 ML IV PRN ×3 (00:37→04:49)
[2017-11-08] MEDS: diphenhydrAMINE HCL 50 MG/ML VIAL IV PUSH SCH ×2 (02:42→05:57)
[2017-11-08] MEDS: CHLORHEXIDINE GLUCONATE 2 % 1 PACK (2 CLOTHS) TOP SCH (04:00)
[2017-11-08] MEDS: SODIUM CHLOR 0.45% 1000 ML INJ 1,000 ML IV SCH (04:35)
[2017-11-08 05:17] LABS: AUTOMATED NEUTROPHIL # 11.3 TH/MM3 (1.8-7.7); BASOPHIL % 0.3 % (0.0-2.0); HEMATOCRIT 32.2 % (35.0-46.0); HEMOGLOBIN 10.4 GM/DL (11.6-15.3); LYMPHOCYTE # 1.7 TH/MM3 (1.0-4.8); MEAN CELL VOLUME 76.3 FL (80.0-100.0); MEAN CORPUSCULAR HEMOGLOBIN 24.5 PG (27.0-34.0); MEAN CORPUSCULAR HGB CONC 32.1 % (32.0-36.0); MEAN PLATELET VOLUME 7.6 FL (7.0-11.0); MONO % 6.8 % (0.0-8.0); NEUT % 80.9 % (16.0-70.0); PLATELET COUNT 303 TH/MM3 (150-450); RED BLOOD COUNT 4.22 MIL/MM3 (4.00-5.30); RED CELL DISTRIBUTION WIDTH 17.5 % (11.6-17.2)
[2017-11-08 05:47] LABS: BICARBONATE 28.7 MEQ/L (21.0-32.0); CALCIUM 8.3 MG/DL (8.5-10.1); CREATININE 0.89 MG/DL (0.50-1.00); MAGNESIUM 1.8 MG/DL (1.5-2.5)
[2017-11-08] MEDS: hydrALAZINE HCL 100 MG TAB DOBHOFF SCH (05:51)
[2017-11-08] MEDS: NIFEdipine 10 MG CAP PO SCH (06:00)
[2017-11-08] MEDS: CHLORHEXIDINE 0.12% (ORAL KIT) 15 ML CUP MT SCH (08:00)
[2017-11-08] MEDS: INSULIN ASPART SUPPLEMENTAL SCALE SQ SCH (08:00)
--- NOTE | 2017-11-08 08:01 | HHI.PR ---
Subjective Remarks Patient is feeling much better. She is ambulating in the room without any problems. She is able to eat past swallow evaluation. Family also at bedside her . Patient wants to go home. No events overnight. Back at her baseline. Objective Vitals Vital Signs Date Time Temp Pulse Resp B/P (MAP) Pulse Ox O2 Delivery O2 Flow Rate FiO2 11/08/17 06:00 66 11/08/17 04:00 100.0 69 25 165/76 (105) 156/76 (102) 11/08/17 04:00 69 11/08/17 02:00 74 11/08/17 00:00 72 11/08/17 00:00 99.1 72 25 127/59 (81) 94 115/55 (75) 11/07/17 22:00 67 11/07/17 20:00 98.2 68 27 189/81 (117) 100 158/71 (100) 11/07/17 20:00 68 11/07/17 18:00 72 11/07/17 16:00 98.9 70 27 164/79 (107) 100 174/89 (117) 11/07/17 16:00 70 11/07/17 14:00 70 11/07/17 12:00 64 11/07/17 12:00 99.1 64 20 177/80 (112) 100 179/88 (118) 11/07/17 10:49 16 11/07/17 10:00 76 I/O 11/07/17 11/07/17 11/07/17 11/08/17 11/08/17 11/08/17 07:00 15:00 23:00 07:00 15:00 23:00 Intake Total 1200 ml 260 ml 100 ml 459.8 ml Output Total 3450 ml 1550 ml 2550 ml Balance -2250 ml 260 ml -1450 ml -2090.2 ml Intake Oral 0 ml 0 ml 60 ml IV Total 1200 ml 260 ml 399.8 ml Other 100 ml Output Urine Total 3450 ml 1550 ml 2550 ml Gastric Drainage Total 0 ml # Bowel Movements 0 1 3 Result Diagram: 11/08/17 0426 11/08/17 0426 Imaging Last Impressions Renal Ultrasound 11/07/17 0000 Signed Impressions: CONCLUSION: 1. No sonographic evidence for significant renal artery stenosis as questioned . 2. Unremarkable renal ultrasound examination. Chest X-Ray 11/06/17 0700 Signed Impressions: CONCLUSION: 1. Dobbhoff feeding tube is noted below the diaphragm but its tip is not visua lized on this examination. 2. Bilateral patchy infiltrates consistent with moderate pulmonary edema versu s pneumonia. Clinical correlation is recommended. 3. Mild cardiomegaly. Abdomen/Pelvis CT 11/02/17 0000 Signed Impressions: CONCLUSION: 1. Bibasilar consolidating airspace disease. 2. No evidence of acute intestinal abnormality. 3. Morales catheter in place. 4. Status post lumbosacral fusion. Objective Remarks General appearance: Awake and alert, appears not acute distress, she is ambulating in the room, she is pleasant and issues back to her baseline. Skin: pale. Neck: No JVD. HEENT: No icterus, tongue swelling resolved Respiratory: Good air entry bilaterally, no wheezing or crackles CVS: S1-S2 regular, no murmur Abdomen: soft, nontender, bowel sounds sluggish Extremities: warm bilaterally, no edema Neuro: Awake and alert. Follows commands. Cranial nerves grossly intact. Normal speech. Back at her baseline mentation. Ambulating in the room. No focal motor deficit. Normal strength. A/P Assessment and Plan 57-year-old female with: Rectal bleeding. Resolved Angioedema (most likely related to lisinopril use). Resolved lisinopril discontinued due to angioedema. Diabetes mellitus Hypertension CAD Hyperkalemia Anemia microcytic Hypokalemia. Resolved Hyperkalemia on admission noted with hypokalemia thereafter . Resolved Successful extubated Adjust antihypertensives as BP is uncontrolled. Increased HCTZ to 25 mg podaily and increase metoprolol to 75 mg po bid. Monitor BP and adjust meds as indicated. Lisinopril discontinued due to angioedema which is now resolved. GI consulted for rectal bleeding. EGD colonoscopy. Polyps removed and sent for pathology. The patient is cleared for discharge to follow-up with GI as outpatient. CT abdomen pelvis unremarkable. Colonoscopy done on 11/03, polyps removed. Possible diverticular bleeding though not active during colonoscopy. Advance diet as tolerated IV hydration, strict intake output, monitor and replete electrodes, follow BUN creatinine. Hyperkalemia noted. Received glucose insulin bicarb and calcium, Kayexalate. Now with hypoklemia. Will check for refeeding sdr. Check mag and phos as well. Replace lytes per ICU protocol Follow CBC and coags. Transfuse to keep hemoglobin above 8 g percent. SSI for glycemic control. Patient is agitated in restraints. Dubhoff for med administration/ Will also do swallow eval /Consult ST Started on seroquel. iron panel, ferritin, b12, folate reviewed normal GI/DVT Prophylaxis: Pepcid/SCDs. No Lovenox in view of GI bleed. Swallow evaluation . Patient passed a swallow evaluation and she is able to eat without any problems. Discussed with the patient, nurse, family at bedside. Patient improved significantly and she is back at her baseline. She is eating very well without any problems she passed swallow evaluation. She is ambulating without any problems. Discharged home in stable condition to follow- up with PCP and consultants as outpatient. Discontinue lisinopril Livier Montiel MD Nov 08, 2017 08:01
[2017-11-08] MEDS: CYCLOBENZAPRINE HCL 10 MG TAB PO SCH (08:57)
[2017-11-08] MEDS: CHOLECALCIFEROL (VIT D3) 1000 UNIT TAB PO SCH (08:57)
[2017-11-08] MEDS: ATORVASTATIN 80 MG TAB PO SCH (08:57)
[2017-11-08] MEDS: HYDROCHLOROTHIAZIDE 12.5 MG CAP PO SCH (08:57)
[2017-11-08] MEDS: DOCUSATE SODIUM 50 MG/SENNA 8.6 MG TAB PO SCH (08:57)
[2017-11-08] MEDS: QUEtiapine FUMARATE 25 MG TAB PO SCH (08:58)
[2017-11-08] MEDS: ASPIRIN EC 81 MG TABEC PO SCH (08:58)
[2017-11-08] MEDS: ISOSORBIDE MONONITRATE 30 MG CR TAB (IMDUR) PO SCH (08:58)
[2017-11-08] MEDS: FAMOTIDINE 20 MG/2 ML VIAL IV PUSH SCH (08:58)
[2017-11-08] MEDS: SODIUM CHLORIDE 0.9% FLUSH 10 ML FLUSH IV FLUSH SCH (08:58)
[2017-11-08] MEDS: METOPROLOL TARTRATE 25 MG TAB PO SCH (09:00)
[2017-11-08] MEDS ORDERED: METO25TA3 PO (09:12)
[2017-11-08] MEDS ORDERED: NIFE10 PO (09:12)
[2017-11-08] MEDS ORDERED: CHOL1000 PO (09:12)
[2017-11-08] MEDS ORDERED: PERI PO (09:12)
[2017-11-08] MEDS ORDERED: HYDR12.57 PO (09:12)
[2017-11-08] MEDS ORDERED: HYDR-3801 DOBHOFF (09:12)
--- NOTE | 2017-11-08 09:12 | HHI.DS ---
Discharge Summary Admission Date November 02, 2017 at 10:29 Discharge Date: Nov 08, 2017 Admitting Diagnosis rectal bleeding (1) Angioedema due to angiotensin converting enzyme inhibitor (RICHI-I) ICD Code: T78.3XXA - Angioneurotic edema, initial encounter; T46.4X1A - Poisoning by jzzpaosbgxi-mgrpdscsvl-txsgia inhibitors, accidental (unintentional ), initial encounter (2) Acute respiratory failure ICD Code: J96.00 - Acute respiratory failure, unspecified whether with hypoxia or hypercapnia (3) Black stool ICD Code: K92.1 - Melena Status: Acute (4) Depression ICD Code: F32.9 - Major depressive disorder, single episode, unspecified Status: Chronic (5) Hyperlipidemia ICD Code: E78.5 - Hyperlipidemia, unspecified Status: Chronic (6) Atypical chest pain ICD Code: R07.89 - Atypical chest pain Status: Acute (7) Vitamin D deficiency ICD Code: E55.9 - Vitamin D deficiency, unspecified (8) Uncontrolled hypertension ICD Code: I10 - Essential (primary) hypertension Procedures egd/colonoscopy Brief History - From Admission HPI 57-year-old female who presented to the ER after she noticed rectal bleeding around 1 AM along with diarrhea. Patient previously has had a colonoscopy 3 years ago at which time she had a benign polyp resected. She is not on any anticoagulation. Patient was accepted for admission by hospitalist service however while in the ER this morning around 8:30 AM patient was noted to have swelling of her tongue. Dr. Santiago evaluated patient in the ER and subsequently called me as he felt patient had developed angioedema and needed to be admitted to the ICU. Patient did receive IV Pepcid and Solu-Medrol as well as Benadryl in the ER. She was having a little difficulty with her speech however appear to be breathing comfortably. Her tongue swelling remained about the same and I came down to evaluate the patient in the ER. Anesthesia had already been called as it was felt patient needed to be intubated for airway protection. When I evaluated the patient in the ER she was resting in the ER stretcher with significant tongue swelling however no stridor. Anesthesia decided to take patient to the OR for intubation with surgical backup for tracheostomy if needed. Dr. Abdul had already been contacted by ER physician and was in the ER as well at the time of my evaluation. Patient was being taken to the OR for fiberoptic intubation by anesthesia and will be admitted to the ICU following the intubation. She does have a history of CAD, diabetes mellitus and hypertension. Patient has also been evaluated by GI. [facility] Past Medical History Hx Anticoagulant Therapy: Yes Arthritis: Yes Asthma: No Autoimmune Disease: No Blood Disorders: No Anxiety: No Depression: Yes Heart Rhythm Problems: Yes (IRREGULAR RHYTHM TACHYCARDIA HISTORY ) Cancer: Yes (left breast 2007) Cardiac Catheterization: Yes Cardiovascular Problems: Yes High Cholesterol: Yes Chemotherapy: No Chest Pain: Yes Congestive Heart Failure: No COPD: Yes Cerebrovascular Accident: No Diabetes: Yes Patient Takes Glucophage: Yes Diminished Hearing: Yes (BILAT hearing aides) Endocrine: Yes GERD: No Glaucoma: No Gout: Yes Genitourinary: Yes (uti) Headaches: Yes Hepatitis: No Hiatal Hernia: No Heparin Induced Thrombocytopen: No Hypertension: Yes Immune Disorder: No Implanted Vascular Access Dvce: No Kidney Stones: No Medical other: Yes (HYPERLIPIDEMIA) Musculoskeletal: Yes ( back and neck problems) Psychiatric: Yes Reproductive: No Respiratory: No Immunizations Current: Yes Migraines: No Myocardial Infarction: Yes Radiation Therapy: Yes Renal Failure: No Seizures: No Sickle Cell Disease: No Sleep Apnea: No Thyroid Disease: No Triglycerides - High: Yes Ulcer: No PNEUMOCCOCAL Vaccine (Year): 1 Menopausal: Yes Past Surgical History Abdominal Surgery: Yes AICD: No Appendectomy: No Arteriovenous Shunt: No Body Medical Devices: x4 cardiac stents hardware in the back Cardiac Surgery: Yes (x4 cardiac stents) Cholecystectomy: No Coronary Artery Bypass Graft: No Coronary Stent: Yes (X4) Ear Surgery: No Endocrine Surgery: No Eye Surgery: Yes (CATARACT BILAT) Genitourinary Surgery: No Gynecologic Surgery: Yes (FIBROID TUMORS FROM UTERUS REMOVED BY LASER, ) Hysterectomy: Yes Insulin Pump: No Joint Replacement: No Neurologic Surgery: Yes (LUMBAR LAMINECTOMY X 2- LUMBAR FUSION) Oral Surgery: Yes (ALL TEETH REMOVED) Pacemaker: No Thoracic Surgery: Yes (left breast lumpectomy) Other Surgery: Yes (LT BREAST LUMPECTOMY, MARGARITA, BACK) Family History Family Myocardial Infarction: Yes Social History Alcohol Use: Yes (occ) Tobacco Use: Yes (occ) Substance Use: No Allergies-Medications (Allergen,Severity, Reaction): Coded Allergies: penicillin G (Unverified Allergy, Severe, ANAPHALAXIS, 11/02/17) Reported Meds & Prescriptions Reported Meds & Active Scripts Active Hydrocodone-Acetaminophen 10-325 mg Tab 1 Tab PO Q8HR PRN Reported Flexeril (Cyclobenzaprine HCl) 10 Mg Tab 10 Mg PO DAILY Metformin (Metformin HCl) 500 Mg Tab 500 Mg PO BIDPC Allopurinol 300 Mg Tab 300 Mg PO DAILY Isosorbide Mononitrate ER (Isosorbide Mononitrate) 30 Mg Leah 30 Mg PO DAILY Aspir-Low (Aspirin) 81 Mg Tabdr 1 Tab PO DAILY Amitriptyline (Amitriptyline HCl) 25 Mg Tab 25 Mg PO HS Metoprolol Tartrate 50 Mg Tab 50 Mg PO BID Hydrochlorothiazide 12.5 Mg Tab 12.5 Mg PO DAILY Zantac (Ranitidine HCl) 150 Mg Tab 150 Mg PO BID Nitroglycerin SL (Nitroglycerin) 0.4 Mg Subl 0.4 Mg SL DIRECTED PRN ONE TABLET UNDER THE TONGUE NEEDED FOR CHEST PAIN, MAY REPEAT EVERY FIVE MINUTES FOR A TOTAL OF 3 DOSES OR CALL 911 IF NO RELIEF Lisinopril 10 Mg Tab 10 Mg PO DAILY Atorvastatin (Atorvastatin Calcium) 80 Mg Tab 80 Mg PO DAILY Gabapentin 800 Mg Tab 800 Mg PO DIRECTED PRN Review of Systems Except as stated in HPI: all other systems reviewed are Neg Gastrointestinal: Positive: Hematochezia, Other (Large amount of blood and blood clots in her stool) CBC/BMP: 11/08/17 0426 11/08/17 0426 Significant Findings Laboratory Tests Test 11/06/17 20:56 11/07/17 20:08 11/07/17 21:30 11/08/17 04:26 White Blood Count 13.2 TH/MM3 (4.0-11.0) 14.0 TH/MM3 (4.0-11.0) Hemoglobin 9.9 GM/DL (11.6-15.3) 10.4 GM/DL (11.6-15.3) Hematocrit 31.5 % (35.0-46.0) 32.2 % (35.0-46.0) Mean Corpuscular Volume 77.3 FL (80.0-100.0) 76.3 FL (80.0-100.0) Mean Corpuscular Hemoglobin 24.3 PG (27.0-34.0) 24.5 PG (27.0-34.0) Mean Corpuscular Hemoglobin Concent 31.4 % (32.0-36.0) Red Cell Distribution Width 17.5 % (11.6-17.2) 17.5 % (11.6-17.2) Random Glucose 131 MG/DL (74-106) 126 MG/DL (74-106) 111 MG/DL (74-106) Albumin 3.3 GM/DL (3.4-5.0) Phosphorus Level 2.3 MG/DL (2.5-4.9) Potassium Level 2.5 MEQ/L (3.5-5.1) 2.4 MEQ/L (3.5-5.1) 3.1 MEQ/L (3.5-5.1) Iron Level 42 MCG/DL (50-170) Total Iron Binding Capacity 227 MCG/DL (250-450) Percent Iron Saturation 18.5 % (20-50) Ferritin 866 NG/ML (8-252) 25-Hydroxy Vitamin D Total 23.8 ng/ML (30-100) Calcium Level 8.1 MG/DL (8.5-10.1) 8.3 MG/DL (8.5-10.1) Estimat Glomerular Filtration Rate 86 ML/MIN (>89) 79 ML/MIN (>89) Vitamin B12 Level 1104 PG/ML (193-986) Neutrophils (%) (Auto) 80.9 % (16.0-70.0) Neutrophils # (Auto) 11.3 TH/MM3 (1.8-7.7) Monocytes # (Auto) 1.0 TH/MM3 (0-0.9) Imaging Last Impressions Renal Ultrasound 11/07/17 0000 Signed Impressions: CONCLUSION: 1. No sonographic evidence for significant renal artery stenosis as questioned . 2. Unremarkable renal ultrasound examination. Chest X-Ray 11/06/17 0700 Signed Impressions: CONCLUSION: 1. Dobbhoff feeding tube is noted below the diaphragm but its tip is not visua lized on this examination. 2. Bilateral patchy infiltrates consistent with moderate pulmonary edema versu s pneumonia. Clinical correlation is recommended. 3. Mild cardiomegaly. Abdomen/Pelvis CT 11/02/17 0000 Signed Impressions: CONCLUSION: 1. Bibasilar consolidating airspace disease. 2. No evidence of acute intestinal abnormality. 3. Morales catheter in place. 4. Status post lumbosacral fusion. PE at Discharge General appearance: Awake and alert, agitated, and soft restraints. Skin: pale. Neck: No JVD. HEENT: No icterus, tongue swelling resolved Respiratory: Good air entry bilaterally, no wheezing or crackles CVS: S1-S2 regular, no murmur Abdomen: soft, nontender, bowel sounds sluggish Extremities: warm bilaterally, no edema Neuro: Awake and alert. Agitated at times. Doesn.t follow commands. Moves extremities. Hospital Course 57-year-old female with: Rectal bleeding. Resolved Angioedema (most likely related to lisinopril use). Resolved lisinopril discontinued due to angioedema. Diabetes mellitus Hypertension CAD Hyperkalemia Anemia microcytic Hypokalemia. Resolved Hyperkalemia on admission noted with hypokalemia thereafter . Resolved Successful extubated Adjust antihypertensives as BP is uncontrolled. Increased HCTZ to 25 mg podaily and increase metoprolol to 75 mg po bid. Monitor BP and adjust meds as indicated. Lisinopril discontinued due to angioedema which is now resolved. GI consulted for rectal bleeding. EGD colonoscopy. Polyps removed and sent for pathology. The patient is cleared for discharge to follow-up with GI as outpatient. CT abdomen pelvis unremarkable. Colonoscopy done on 11/03, polyps removed. Possible diverticular bleeding though not active during colonoscopy. Advance diet as tolerated IV hydration, strict intake output, monitor and replete electrodes, follow BUN creatinine. Hyperkalemia noted. Received glucose insulin bicarb and calcium, Kayexalate. Now with hypoklemia. Will check for refeeding sdr. Check mag and phos as well. Replace lytes per ICU protocol Follow CBC and coags. Transfuse to keep hemoglobin above 8 g percent. SSI for glycemic control. Patient is agitated in restraints. Dubhoff for med administration/ Will also do swallow eval /Consult ST Started on seroquel. iron panel, ferritin, b12, folate reviewed normal GI/DVT Prophylaxis: Pepcid/SCDs. No Lovenox in view of GI bleed. Swallow evaluation . Patient passed a swallow evaluation and she is able to eat without any problems. Discussed with the patient, nurse, family at bedside. Patient improved significantly and she is back at her baseline. She is eating very well without any problems she passed swallow evaluation. She is ambulating without any problems. Discharged home in stable condition to follow- up with PCP and consultants as outpatient. Discontinue lisinopril Pt Condition on Discharge: Stable Discharge Disposition: Disch w/ Home Health Serv Discharge Time: > 30 minutes Discharge Instructions DIET: Follow Instructions for: Heart Healthy Diet Activities you can perform: Regular-No Restrictions Follow up Referrals: Gastroenterology - 1 Week PCP Follow-up - 2-3 Days New Medications: Cholecalciferol (Gnp Vitamin D3 Extra Stre) 1,000 Unit Tab 2000 UNITS PO DAILY for Nutritional Supplement, #30 TAB Hydralazine (Hydralazine) 100 Mg Tab 100 MG DOBHOFF Q8HR for Blood Pressure Management, #90 TAB Take with meals Metoprolol Tartrate (Metoprolol Tartrate) 25 Mg Tab 75 MG PO BID for Blood Pressure Management, #60 TAB Quetiapine (Seroquel) 25 Mg Tab 25 MG PO BID@09,12 for Agitation, #60 TAB Sennosides-Docusate Sodium (Gnp Senna Plus 8.6-50 mg) 8.6 Mg-50 Mg Tab 1 TAB PO BID for Constipation, #30 TAB Continued Medications: Allopurinol (Allopurinol) 300 Mg Tab 300 MG PO DAILY for Gout, #30 TAB 0 Refills Amitriptyline (Amitriptyline) 25 Mg Tab 25 MG PO HS for Insomnia, TAB Aspirin DR (Aspir-Low) 81 Mg Tabdr 1 TAB PO DAILY Atorvastatin (Atorvastatin) 80 Mg Tab 80 MG PO DAILY for Cholesterol Management, TAB Cyclobenzaprine (Flexeril) 10 Mg Tab 10 MG PO DAILY for Muscle Spasm, #90 TAB 0 Refills Gabapentin (Gabapentin) 800 Mg Tab 800 MG PO DIRECTED PRN for PAIN 1 TO 10 AND/OR AGITATION, TAB Hydrochlorothiazide (Hydrochlorothiazide) 12.5 Mg Tab 12.5 MG PO DAILY, TAB Hydrocodone-Acetaminophen (Hydrocodone-Acetaminophen) 10-325 mg Tab 1 TAB PO Q8HR PRN for PAIN, #90 TAB 0 Refills Isosorbide Mononitrate ER (Isosorbide Mononitrate ER) 30 Mg Leah 30 MG PO DAILY for Prevent Chest Pain, #30 TAB 0 Refills Metformin (Metformin) 500 Mg Tab 500 MG PO BIDPC for Blood Sugar Management, #60 TAB 0 Refills Nitroglycerin SL (Nitroglycerin SL) 0.4 Mg Subl 0.4 MG SL DIRECTED PRN for CHEST PAIN, TAB.SL ONE TABLET UNDER THE TONGUE NEEDED FOR CHEST PAIN, MAY REPEAT EVERY FIVE MINUTES FOR A TOTAL OF 3 DOSES OR CALL 911 IF NO RELIEF Ranitidine (Zantac) 150 Mg Tab 150 MG PO BID, TAB Livier Montiel MD Nov 08, 2017 09:12
--- NOTE | 2017-11-08 09:13 | HHI.FF ---
Face to Face Verification Diagnosis: (1) Angioedema (2) Vitamin D deficiency (3) Hypokalemia (4) Uncontrolled hypertension (5) DM (diabetes mellitus screen) (6) Hypernatremia Physical Therapy Order: Evaluate and Treat Home Health Nursing Order: Medical education Signs/symptoms of disease process Diabetic education Medication education-adverse effect Nursing assessment with vital signs I have seen patient Glenda Rea on 11/08/17. My clinical findings support the need for the requested home health care services because: Ltd mobility - disease progression I certify that my clinical findings support that this patient is homebound because: Post-op weakness Livier Montiel MD Nov 08, 2017 09:13
[2017-11-08] MEDS: ALLOPURINOL 300 MG TAB PO SCH (09:32)
[2017-11-08] MEDS ORDERED: SERO25TA PO (10:07)
[2017-11-09 13:06] LABS: METANEPHRINES <0.20 nmol/L (<0.50); NORMETANEPHRINE 0.33 nmol/L (<0.90); RENIN <0.6 ng/mL/h
[2017-11-11 12:44] LABS: URINE EPINEPHRINE 3.3 mcg/24 h (<21)
[2017-11-13] MEDS ORDERED: REMOVE OLD CATAPRES (CLONIDINE) PATCH T-DERMAL SCH (08:00)
== END 2017-11-08 09:30 | disposition home health service (06) | DRG 377 ==
LOC: NEPE 03:06 → NEDA 06:55 → HIME 10:05 → OBSVTOIN 10:29
PROVIDERS: ADMIT Hospitalist; ATTEND Hospitalist
PROC: 5A1945Z Respiratory Ventilation, 24-96 Consecutive Hours (ICD-10-PCS; 2017-11-02)
PROC: 0BH18EZ Insertion of Endotracheal Airway into Trachea, Via Natural or Artificial Opening Endoscopic (ICD-10-PCS; 2017-11-02)
PROC: 30233N1 Transfusion of Nonautologous Red Blood Cells into Peripheral Vein, Percutaneous Approach (ICD-10-PCS; principal; 2017-11-02 09:30)
PROC: 0DBM8ZX Excision of Descending Colon, Via Natural or Artificial Opening Endoscopic, Diagnostic (ICD-10-PCS; 2017-11-03)
PROC: 0DBN8ZX Excision of Sigmoid Colon, Via Natural or Artificial Opening Endoscopic, Diagnostic (ICD-10-PCS; 2017-11-03)
DX: K57.31 Diverticulosis of large intestine without perforation or abscess with bleeding (principal); J96.00 Acute respiratory failure, unspecified whether with hypoxia or hypercapnia; E87.0 Hyperosmolality and hypernatremia; E11.9 Type 2 diabetes mellitus without complications; D50.9 Iron deficiency anemia, unspecified; I10 Essential (primary) hypertension; E87.5 Hyperkalemia; J44.9 Chronic obstructive pulmonary disease, unspecified; Z78.1 Physical restraint status; T78.3XXA Angioneurotic edema, initial encounter; K21.9 Gastro-esophageal reflux disease without esophagitis; I25.10 Atherosclerotic heart disease of native coronary artery without angina pectoris; F32.9 Major depressive disorder, single episode, unspecified; F17.210 Nicotine dependence, cigarettes, uncomplicated; M19.90 Unspecified osteoarthritis, unspecified site; E78.5 Hyperlipidemia, unspecified; H91.93 Unspecified hearing loss, bilateral; M10.9 Gout, unspecified; K63.5 Polyp of colon; T46.4X5A Adverse effect of angiotensin-converting-enzyme inhibitors, initial encounter; E87.6 Hypokalemia; E55.9 Vitamin D deficiency, unspecified; Z85.3 Personal history of malignant neoplasm of breast; I25.2 Old myocardial infarction; Z95.5 Presence of coronary angioplasty implant and graft; Z79.84 Long term (current) use of oral hypoglycemic drugs
CPT/HCPCS: 31500; 36430; 71045; 74177; 80048; 80053; 80069; 82088; 82306; 82384; 82607; 82728; 82746; 82805; 82948; 83540; 83550; 83690; 83735; 83835; 83970; 84100; 84132; 84244; 85014; 85018; 85025; 85027; 85610; 86850; 86900; 86901; 86920; 87641; 88305; 93975; 94002; 94003; 94150; 94640; 94664; C9113; J0610; J1100; J1200; J1815; J2060; J2250; J2270; J2370; J2930; J3010; J3480; J7030; J7050; J7120; P9016; Q9963; Q9967